=== PATIENT | female | born 1940 | race African-American/Black ===

== ENCOUNTER 2016-06-13 05:34 | Inpatient (IN) ==
[2016-06-12 11:52] LABS: Basophils % 0.2 % (0.0-0.8); Eosinophils # 0.2 10*3/uL (0.0-0.87); Eosinophils % 1.8 % (0.00-10.9); Hematocrit 35.1 VOL% (35.7-47.0); Hemoglobin 11.5 GM/DL (12.0-16.0); Immature Granulocytes % 0.4 %; Immature Granulocytes Absolute 0.04 #; Lymphocytes # 1.7 10*3/uL (1.4-4.0); Lymphocytes % 15.7 % (21.3-54.2); Mean Corpuscular HGB Conc 32.8 GM/DL (32-36); Mean Corpuscular Hemoglobin 27 PG (27-34); Mean Corpuscular Volume 82.8 FL (87-102); Mean Platelet Volume 9.5 FL (9.6-12.0); Monocytes # 0.8 10*3/uL (0.11-0.8); Monocytes % 7.8 % (1.7-12.7); Neutrophils # 7.9 10*3/uL (1.4-7.4); Neutrophils % 74.1 % (38.7-73.9); Platelet Count 397 T/CUMM (130-400); Red Blood Count 4.24 MC/CUMM (3.8-5.5); Red Cell Distribution Width 17.9 % (9.3-17.3); White Blood Count 10.7 T/CUMM (4-12)
--- NOTE | 2016-06-12 12:26 | EKG Report ---
Stationary ECG Study [facility] Test Date: 06/12/2016 12:24:39 PM Pat Name: ARMIDA HASSAN Department: Room: Gender: F Ride Attendant: 06-13-16 : 1940 Requested by: Greyson Thomas Order Number: [id number] Love MD: JOSE R PARTIDA Intervals [place] Rate: 79 P: 63 WV: 136 QRS: -16 QRSD: 115 T: 36 QT: 397 QTc: 431 Interpretive Statements SINUS RHYTHM INCOMPLETE RIGHT BUNDLE BRANCH BLOCK Electronically Signed On 06-12-16 13:36:26 CDT by JOSE R PARTIDA [email or web address]
[2016-06-12 12:27] LABS: Bilirubin,Total 0.7 MG/DL (0.2-1.0); Calcium 9.3 MG/DL (8.5-10.1); Osmolality,Calculated 280.5 MOS/KG (273-304); Potassium 4.5 MMOL/L (3.5-5.1); Total Protein 8.2 G/DL (6.4-8.3)
--- NOTE | 2016-06-12 15:48 | XRay Report ---
History: Respiratory preop evaluation. Breast cancer Date: 06/12/2016 Study: Chest x-ray PA and lateral Comparison exam: September 29, 2007 chest x-ray There is stable mild cardiomegaly. The mediastinal contours are unchanged. The pulmonary vasculature is not enlarged. There is minimal aortic arch calcification. There is no gross layering pleural effusion. There is suspected mild pleural scarring in the left lateral costophrenic angle. There is a small calcified granuloma in the right lower lung. The lungs and pleural spaces are otherwise clear. There is mild thoracic spondylosis. Surgical clips overlie the left thoracic inlet. Impression: No acute cardiopulmonary process compared to the previous study PROCEDURE INTERPRETED AT [facility] DEPARTMENT OF RADIOLOGY Final Report Signed by: Dr. Britt Dominguez
[2016-06-13] MEDS ORDERED: FAMOTIDINE 20 MG TABLET ONE (05:56)
[2016-06-13] MEDS ORDERED: SODIUM CHLORIDE 0.9% 100 ML IV ONE (05:56)
[2016-06-13] MEDS ORDERED: ceFAZolin 1,000 MG VIAL ONE (05:56)
[2016-06-13] MEDS ORDERED: FAMOTIDINE 20 MG TABLET PO ONE (06:00)
[2016-06-13] MEDS ORDERED: ALBUTEROL/IPRATROPIUM 3 ML NEB RESP TX STA (06:08)
[2016-06-13] MEDS ORDERED: ISOSULFAN BLUE 5 ML VIAL SUBCUT ONE (06:11)
[2016-06-13] MEDS: LACTATED RINGERS 1,000 ML IV SCH ×2 (06:55→10:33)
[2016-06-13] MEDS ORDERED: LIDOCAINE 2% 5 ML VIAL ONE (07:07)
[2016-06-13] MEDS ORDERED: DEXAMETHASONE 4 MG/1 ML VIAL ONE (07:07)
[2016-06-13] MEDS ORDERED: LABETALOL 100 MG/20 ML VIAL IV ONE (07:07)
[2016-06-13] MEDS ORDERED: SUCCINYLCHOLINE 200 MG/10 ML VIAL ONE (07:07)
[2016-06-13] MEDS ORDERED: ROCURONIUM 100 MG/10 ML VIAL IV ONE (07:07)
[2016-06-13] MEDS ORDERED: PROPOFOL 200 MG/20 ML VIAL IV ONE (07:07)
[2016-06-13] MEDS ORDERED: ONDANSETRON 4 MG/2 ML VIAL ONE (07:07)
--- NOTE | 2016-06-13 09:08 | Operative Note ---
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 [place] lymph node excision removing lower axillary sentinel lymph node with radial guidance 3. Injection of blue dye for sentinel lymph node localization Findings and technique: After informed consent was obtained the patient was brought to the operating room and placed in supine position. After successful induction of general anesthesia the patient's left breast axilla and upper extremity were prepped and draped in usual sterile fashion. Prior to prepping I injected blue dye of her previous injection site from yesterday and the sterile gamma probe was then placed over the axilla where an area of activity was noted in the mid axilla. The planned mastectomy incisions were marked out with a marking pen and I made the most lateral aspect of the incision over the axilla incorporating this within the planned mastectomy margins. Sharp dissection was carried down into the axillary space where a blue stained lymph node with 2 adherent lymph nodes were noted . Lymphatics were divided between hemoclips and the specimen removed. The central lymph node in this specimen had intense gamma activity and blue staining. Frozen section on this was benign. Surrounding this and just inferior to this were some rather firm enlarged lymph nodes and I elected to resect these with the mastectomy specimen. The mastectomy was performed by creating a generous skin ellipse including the nipple areolar complex and the previous biopsy sites. Superiorly the flaps are raised to the level of the clavicle and medially to the sternum and inferiorly below the inframammary fold. The lateral dissection was carried to the anterior border of the latissimus dorsi muscle and the breast reflected off of the pectoralis major muscle and into the axillary space with the lower lymph nodes were included with the specimen. The specimen was removed and sent for permanent section. Good hemostasis was noted within the bed of dissection and the wound was irrigated and inspected and good hemostasis noted. 2 ELLA drains were placed with the lateral drain in the axillary space in the medial drain beneath the superior flap. The subcutaneous layer was closed interrupted 3-0 Vicryl suture and the skin with skin clips. Bulky dressing was applied. Anesthesia: GETA Surgeon / Physician: Greyson Thomas III. Estimated blood loss: other (50 mL) Specimens: other (Left breast and axillary contents and sentinel lymph node) Condition: stable Disposition: PACU Results - Labs CBC & BMP: 06/12/16 11:46 06/12/16 11:46 Discharge Plan - Discharge Medications No Action Triamcinolone Acetonide [Triamcinolone 0.1% Cream] 1 applic TOP BID Tacrolimus [Protopic 0.1% Oint] 1 actuation TP DIRECTED Omeprazole [Prilosec] 20 mg PO DAILY Insulin NPH/Regular 70/30 [HumuLIN 70/30] 40 unit SUBCUT RT DAILY Multivitamin [Multivitamins] 1 each PO DAILY Gabapentin Cap/Tab [Neurontin Cap/Tab] 300 mg PO DAILY metOLazone [Metolazone] 2.5 mg PO DAILY Hydroxyurea [Hydrea] 500 mg PO DAILY Furosemide Tab [Lasix Tab] 40 mg PO DAILY Methocarbamol Tab [Robaxin Tab] 750 mg PO BID Vits #90/Iron Fum/FA [ Formula Tablet] 1 each PO DAILY HYDROcodone/ACETAMIN 7.5-325 [[place] 7.5-325] 1 tablet PO Q4H PRN PRN Reason: Pain dilTIAZem HCl [Diltiazem ER (24 hr)] 360 mg PO DAILY Aspirin 81 mg PO DAILY - Follow Up or Referral - Forms/Instructions
[2016-06-13] MEDS ORDERED: GLUCAGON 1 MG VIAL IM PRN ×2 (09:09→13:47)
[2016-06-13] MEDS ORDERED: ONDANSETRON 4 MG/2 ML VIAL IV PRN (09:09)
[2016-06-13] MEDS ORDERED: DEXTROSE 50% 25 GM/50 ML VIAL IV PRN ×2 (09:09→13:47)
[2016-06-13] MEDS ORDERED: ALBUTEROL/IPRATROPIUM 3 ML NEB RESP TX PRN (09:09)
[2016-06-13] MEDS ORDERED: SEVOFLURANE 1 UNIT/15 MINUTE INH ONE (09:13)
[2016-06-13] MEDS ORDERED: MIDAZOLAM 2 MG/2 ML VIAL ONE ×2 (09:13→11:37)
[2016-06-13] MEDS ORDERED: fentaNYL 100 MCG/2 ML VIAL ONE (09:13)
[2016-06-13] MEDS ORDERED: ALBUTEROL 2.5 MG/3 ML NEB RESP TX ONE (09:25)
[2016-06-13] MEDS ORDERED: RACEPINEPHRINE 0.5 ML NEB RESP TX ONE ×2 (09:50)
[2016-06-13] MEDS ORDERED: KETOROLAC 15 MG/1 ML VIAL ONE (10:14)
[2016-06-13] MEDS ORDERED: ACETAMINOPHEN INJ 1,000 MG in PREMIX 1 EACH IV ONE (10:14)
[2016-06-13] MEDS ORDERED: ACETAMINOPHEN 1,000 MG/100 ML VIAL IV ONE (10:14)
[2016-06-13] MEDS ORDERED: KETOROLAC 30 MG/1 ML VIAL IV ONE (10:14)
[2016-06-13] MEDS ORDERED: KETOROLAC 30 MG/1 ML VIAL ONE (10:15)
[2016-06-13] MEDS ORDERED: PROPOFOL 1,000 MG/100 ML BOTTLE IV ONE (10:40)
[2016-06-13] MEDS: PROPOFOL 1,000 MG/100 ML BOTTLE IV SCH ×2 (10:50→19:01)
--- NOTE | 2016-06-13 10:50 | Anesthesia Procedures ---
Anesthesia Procedures - Intubation Time out performed intubation: Yes Sedative: Etomidate Mg given sedative: 20 Paralytic: Rocuronium Mg given paralytic: 50 Laryngoscope: Lisa (4) ET Tube Size: 8 (low pressure cuff) ET Tube Uncuffed: No Tube Secured Depth (cm): 22 Tube Secured Location: lips Tube Placement Confirmation: visualized tube passing through cords, equal breath sounds bilaterally, no breath sounds over epigastrium, confirmation by capnometry, confirmation detector color change Patient tolerated procedure intubation: well Intubation Complications: none Additional Commets: patient was given toradol 30 mg IV and Ofirmev 1 gm IV to attempt to treat pain without narcotic. Patient awake but breathing becoming increasingly labored. Additional albuterol breathing treatment and bipap. Discussed with Dr. Martha RATLIFF and Dr. Arredondo and patient. Patient states unable to breathe well. Respirations increasingly labored. O2 sat 83-85 %. Decision to intubate. Patient tolerated intubation well. BP 121/82, heart rate 53 bpm, O2 sat 95%.
--- NOTE | 2016-06-13 11:17 | XRay Report ---
Portable chest. Indication: Respiratory failure. Status post intubation. Comparison: June 12, 2016. The heart is enlarged. There is left atrial prominence. There is calcific plaque present within the aortic knob. Scattered atelectasis is visible in the left lung base. Scattered perihilar infiltrates, worse on the right, have developed since the previous study. Pleural effusion cannot be excluded. Postsurgical changes are noted along the left lower thorax and abdomen. Surgical clips in the left thoracic inlet. Impression: Development of bilateral infiltrates, possibly related to pulmonary edema. Left basilar atelectasis. PROCEDURE INTERPRETED AT [facility] [place] DEPARTMENT OF RADIOLOGY Final Report Signed by: Dr. Nneka Laura
[2016-06-13] MEDS ORDERED: INSULIN REGULAR 100 UNIT/ML SUBCUT SCH (11:30)
[2016-06-13 11:49] LABS: ABG Base Excess 3.2 MMOL/L (-2.5-2.5); ABG HCO3 27.2 MMOL/L (20-26); ABG Oxygen Saturation 96.5 % (95-100); ABG PCO2 40.5 MM HG (35-48); ABG TCO2 24.4 MMOL/L (23-27); Allen Test Positive; Pt O2 Delivery Device Ventilator
[2016-06-13 11:55] LABS: Apearance,Urine CLEAR (Clear); Bilirubin,Urine Negative (Negative); Blood, Urine Negative (Negative); Glucose,Urine (UA) Negative (Negative); Hyaline Casts,Urine 3 /LPF (0-3); Ketones,Urine Negative (Negative); Nitrite,Urine Negative (Negative); Protein,Urine Negative; RBC,Urine <1 /HPF (0-4); Urine Color Yellow (Yellow); Urine Urobilinogen < 2.0 EU/DL (0.2-1.0); WBC,Urine <1 /HPF (0-6)
--- NOTE | 2016-06-13 13:36 | Pulmonology Consult Note ---
Assessment and Plan (1) Postoperative respiratory failure Status: Acute Assessment and plan: She has diffuse right infiltrate. Mild best judgment would be that this would be aspiration. Will obtain venous Dopplers and put on DVT prophylaxis. However this would be too early to be a pulmonary embolus. She has a creatinine of about 1.8 and I would be concerned about doing a CT PE protocol Current Visit: Yes (2) Status post left mastectomy for breast c Status: Acute Assessment and plan: She did well with surgery. Had problems postoperatively. Current Visit: Yes (3) Diabetes type 2, controlled Status: Acute Assessment and plan: Sliding scale insulin. Current Visit: Yes (4) Essential hypertension Status: Acute Assessment and plan: Systolic blood pressure running 180 and 190. Will manage with labetalol. Current Visit: Yes (5) Essential thrombocythemia Status: Acute Assessment and plan: Platelet count was 397,000 yesterday which is normal. Holding Hydrea for now. Current Visit: Yes (6) Aspiration syndrome Status: Acute Assessment and plan: She has an acute right pulmonary infiltrate with hypoxemia following surgery. Aspiration would be the most likely cause. Will cover with steroids as well as Cleocin and Levaquin. Considering pulmonary emboli but I think that is unlikely. Will check venous Dopplers and put on DVT prophylaxis. Current Visit: Yes History of Present Illness Chief complaint: Postop respiratory failure History of present illness: Ms. Barens is a 75 year old female who had a left mastectomy this morning. Postoperatively she was short of breath and hypoxemic and had to be reintubated. She is a patient that I follow for hypertension and diabetes. She has essential thrombocythemia and takes Hydrea regularly followed by Dr. Fab Judge. She has never been a smoker and does not have COPD. She does have obesity and is relatively inactive. She has had multiple leg operations for fractures and would be subject to DVT. Home Medications Medication Instructions Recorded Confirmed Type Aspirin 81 mg PO DAILY 06/12/16 06/13/16 History Furosemide Tab [Lasix Tab] 40 mg PO DAILY 06/12/16 06/13/16 History Gabapentin Cap/Tab [Neurontin 300 mg PO DAILY 06/12/16 06/13/16 History Cap/Tab] HYDROcodone/ACETAMIN 7.5-325 1 tablet PO Q4H PRN 06/12/16 06/13/16 History [[place] 7.5-325] Hydroxyurea [Hydrea] 500 mg PO DAILY 06/12/16 06/13/16 History Insulin NPH/Regular 70/30 [HumuLIN 40 unit SUBCUT RT DAILY 06/12/16 06/13/16 History 70/30] Methocarbamol Tab [Robaxin Tab] 750 mg PO BID 06/12/16 06/13/16 History Multivitamin [Multivitamins] 1 each PO DAILY 06/12/16 06/13/16 History Omeprazole [Prilosec] 20 mg PO DAILY 06/12/16 06/13/16 History Vits #90/Iron Fum/FA 1 each PO DAILY 06/12/16 06/13/16 History [ Formula Tablet] Tacrolimus [Protopic 0.1% Oint] 1 actuation TP DIRECTED 06/12/16 06/13/16 History Triamcinolone Acetonide 1 applic TOP BID 06/12/16 06/13/16 History [Triamcinolone 0.1% Cream] dilTIAZem HCl [Diltiazem ER (24 360 mg PO DAILY 06/12/16 06/13/16 History hr)] metOLazone [Metolazone] 2.5 mg PO DAILY 06/12/16 06/13/16 History Allergies Allergy/AdvReac Type Severity Reaction Status Date / Time adhesive tape Allergy Severe PEELS SKIN Verified 06/13/16 06:11 OFF ROS unobtainable: due to endotracheal tube Exam (Pulmonay) H&P - Constitutional Vitals: Period Temp Pulse Resp BP Sys/Murdock Pulse Ox Last 24 Hr 97.3 F-97.9 F 46-84 14-30 127-191/60-88 87-97 Exam: Patient is sedated but arousable vital signs normal. O2 sat 98% on the ventilator. Pupils react to light. Orotracheal tube in place. Neck is supple no bruits. Chest reveals a few rhonchi on the right chest. Left lung is clear. Heart normal rate rhythm no murmurs. Abdomen soft nontender no masses. Bowel sounds present. Extremities no clubbing cyanosis or edema. Calves nontender. She has a bandage over her left breast. It is surgically absent. Medical,Surgical,& Family Hx - Medical History Cardio: History of: Hypertension, Cardiovascular Problems (DR RAHMAN STRESS TEST 2016.) Neurology: No history of: Seizures HEENT: History of: Eye Problem (GLASSES) Endocrine: History of: Diabetes Mellitus (IDDM), Thyroid Disorder Rheumatology: History of;: Rheumatoid Arthritis Respiratory: History of: Bronchitis (CHRONIC) No history of: COPD (She does not have COPD), Respiratory Problems (FLU VAC-) Gastrointestinal: History of: GERD Musculoskeletal: History of: Back/Neck Problems (BACK INJECTION, DR SAENZ 3 YEARS AGO.), Musculoskeletal Problems (RT LEG FX) Hematology: History of: Anemia, Blood Disorders (ESSENTIAL THROMBOCYTHERMIA) Reproductive: History of: Breast Cancer (LEFT BREAST CA DR JUDGE) - Surgical History HEENT Surgeries: Surgical HX of: Thyroid Surgery (PARTIAL THYROIDECTOMY) Abdominal Surgeries: Surgical HX of: Appendectomy, Hernia Repair Reproductive Surgeries: Surgical HX of;: Breast Surgery (RT LUMPECTOMY), Cystoscopy (DR FORBES), Dilation and Curettage (X1) Orthopedic Surgeries: Surgical HX of;: Total Knee Replacement (SHU KNEE) - Family History Family History: Reports;: Family Diabetes (2 SISTERS), Family Heart Disease ( MOTHER CHF, FATHER), Family Hypertension (MOTHER FATHER SISTERS) - Social History Smoking Status: Never smoker Frequency of Alcohol Use: None Type of Drug Use: None Results - Labs CBC & BMP: 06/12/16 11:46 06/12/16 11:46 Lab Results: I have reviewed the past 24 hour labs - Diagnostic Findings Procedure: Chest x-ray: image reviewed by me (Postoperative chest x-ray shows a diffuse infiltrate in the right lung. Left lung is clear. Preoperative x-ray yesterday was clear.) Quality Measures - VTE Contraindication to Pharmacological VTE Prophylaxis: High Risk of Bleeding
--- NOTE | 2016-06-13 14:55 | Ultrasound Report ---
Bilateral lower extremity venous Doppler with cano scale, Spectral Doppler and color-flow analysis performed and interpreted. Indication: pulmonary infiltrate. History of deep venous thrombosis. Scanning over both common femoral veins, superficial femoral veins, greater saphenous veins and popliteal veins demonstrates normal compressibility, color flow, and augmentation. Impression: No evidence of DVT seen in either lower extremity. PROCEDURE INTERPRETED AT [facility] DEPARTMENT OF RADIOLOGY Final Report Signed by: Dr. Nneka Laura
[2016-06-13] MEDS: SODIUM CHLORIDE 0.9% 1,000 ML IV SCH (15:20)
[2016-06-13] MEDS: methylPREDNISolone SOD SUC 40 MG/1 ML VIAL IV SCH (15:25)
[2016-06-13] MEDS: CLINDAMYCIN INJ 600 MG in PREMIX 1 EACH IV SCH (15:26)
[2016-06-13] MEDS: ENOXAPARIN 60 MG/0.6 ML SYRINGE SUBCUT SCH (15:26)
[2016-06-13] MEDS: LEVOFLOXACIN INJ 500 MG in PREMIX 1 EACH IV SCH (16:03)
[2016-06-13] MEDS: ceFAZolin 2,000 MG in PREMIX 1 EACH IV SCH (16:20)
--- NOTE | 2016-06-13 16:37 | Hospitalist History & Physical ---
History of Present Illness Chief complaint: diabetes History of present illness: Ms. Barnes is a 75 year old female Home Medications Medication Instructions Recorded Confirmed Type Aspirin 81 mg PO DAILY 06/12/16 06/13/16 History Furosemide Tab [Lasix Tab] 40 mg PO DAILY 06/12/16 06/13/16 History Gabapentin Cap/Tab [Neurontin 300 mg PO DAILY 06/12/16 06/13/16 History Cap/Tab] HYDROcodone/ACETAMIN 7.5-325 1 tablet PO Q4H PRN 06/12/16 06/13/16 History [[place] 7.5-325] Hydroxyurea [Hydrea] 500 mg PO DAILY 06/12/16 06/13/16 History Insulin NPH/Regular 70/30 [HumuLIN 40 unit SUBCUT RT DAILY 06/12/16 06/13/16 History 70/30] Methocarbamol Tab [Robaxin Tab] 750 mg PO BID 06/12/16 06/13/16 History Multivitamin [Multivitamins] 1 each PO DAILY 06/12/16 06/13/16 History Omeprazole [Prilosec] 20 mg PO DAILY 06/12/16 06/13/16 History Vits #90/Iron Fum/FA 1 each PO DAILY 06/12/16 06/13/16 History [ Formula Tablet] Tacrolimus [Protopic 0.1% Oint] 1 actuation TP DIRECTED 06/12/16 06/13/16 History Triamcinolone Acetonide 1 applic TOP BID 06/12/16 06/13/16 History [Triamcinolone 0.1% Cream] dilTIAZem HCl [Diltiazem ER (24 360 mg PO DAILY 06/12/16 06/13/16 History hr)] metOLazone [Metolazone] 2.5 mg PO DAILY 06/12/16 06/13/16 History Allergies Allergy/AdvReac Type Severity Reaction Status Date / Time adhesive tape Allergy Severe PEELS SKIN Verified 06/13/16 06:11 OFF Medical,Surgical,& Family Hx - Medical History Cardio: History of: Hypertension, Cardiovascular Problems (DR RAHMAN STRESS TEST 2016.) Neurology: No history of: Seizures HEENT: History of: Eye Problem (GLASSES) Endocrine: History of: Diabetes Mellitus (IDDM), Thyroid Disorder Rheumatology: History of;: Rheumatoid Arthritis Respiratory: History of: Bronchitis (CHRONIC) No history of: COPD (She does not have COPD), Respiratory Problems (FLU VAC-) Gastrointestinal: History of: GERD Musculoskeletal: History of: Back/Neck Problems (BACK INJECTION, DR SAENZ 3 YEARS AGO.), Musculoskeletal Problems (RT LEG FX) Hematology: History of: Anemia, Blood Disorders (ESSENTIAL THROMBOCYTHERMIA) Reproductive: History of: Breast Cancer (LEFT BREAST CA DR JUDGE) - Surgical History HEENT Surgeries: Surgical HX of: Thyroid Surgery (PARTIAL THYROIDECTOMY) Abdominal Surgeries: Surgical HX of: Appendectomy, Hernia Repair Reproductive Surgeries: Surgical HX of;: Breast Surgery (RT LUMPECTOMY), Cystoscopy (DR FORBES), Dilation and Curettage (X1) Orthopedic Surgeries: Surgical HX of;: Total Knee Replacement (SHU KNEE) - Family History Family History: Reports;: Family Diabetes (2 SISTERS), Family Heart Disease ( MOTHER CHF, FATHER), Family Hypertension (MOTHER FATHER SISTERS) - Social History Smoking Status: Never smoker Frequency of Alcohol Use: None Type of Drug Use: None Exam - Constitutional Vitals: Period Temp Pulse Resp BP Sys/Murdock Pulse Ox Last 24 Hr 97.0 F-97.9 F 46-84 14-30 88-191/43-88 87-100 Results - Labs CBC & BMP: 06/12/16 11:46 06/12/16 11:46 Quality Measures - VTE Contraindication to Pharmacological VTE Prophylaxis: High Risk of Bleeding
--- NOTE | 2016-06-13 17:08 | Hospitalist Consult Note ---
Assessment and Plan (1) Renal insufficiency, mild Status: Acute Assessment and plan: 1)MELANIE v CKD- no old creatinines in our system. monitor her renal function 2)DM- agree with SSI for now since she is not eating and consider restarting her long acting insulin when she is fed. If not extubated tomorrow, consider tube feeding. 3) morbid obesity Current Visit: Yes (2) Diabetes type 2, controlled Status: Acute Current Visit: Yes History of Present Illness - Consult Narrative Reason for consult: diabetes History of present illness: Ms. Barnes is a 75 year old female who had a mastectomy today. In the recovery room she had respiratory distress and was intubated and transferred to the CCU. I was consulted for diabetes management. She is unable to give history and there are no family members present to give any. When I look at her records which include a consult from Dr Arredondo and her home med list It appears she has insulin dependent diabetes. She wakes when I touch her and seems to be following what I say. Her nurse says that she expects her to be extubated tomorrow. CC: Greyson Thomas III., - Home Medications and Allergies Home Medications: Home Medications Medication Instructions Recorded Confirmed Type Aspirin 81 mg PO DAILY 06/12/16 06/13/16 History Furosemide Tab [Lasix Tab] 40 mg PO DAILY 06/12/16 06/13/16 History Gabapentin Cap/Tab [Neurontin 300 mg PO DAILY 06/12/16 06/13/16 History Cap/Tab] HYDROcodone/ACETAMIN 7.5-325 1 tablet PO Q4H PRN 06/12/16 06/13/16 History [[place] 7.5-325] Hydroxyurea [Hydrea] 500 mg PO DAILY 06/12/16 06/13/16 History Insulin NPH/Regular 70/30 [HumuLIN 40 unit SUBCUT RT DAILY 06/12/16 06/13/16 History 70/30] Methocarbamol Tab [Robaxin Tab] 750 mg PO BID 06/12/16 06/13/16 History Multivitamin [Multivitamins] 1 each PO DAILY 06/12/16 06/13/16 History Omeprazole [Prilosec] 20 mg PO DAILY 06/12/16 06/13/16 History Vits #90/Iron Fum/FA 1 each PO DAILY 06/12/16 06/13/16 History [ Formula Tablet] Tacrolimus [Protopic 0.1% Oint] 1 actuation TP DIRECTED 06/12/16 06/13/16 History Triamcinolone Acetonide 1 applic TOP BID 06/12/16 06/13/16 History [Triamcinolone 0.1% Cream] dilTIAZem HCl [Diltiazem ER (24 360 mg PO DAILY 06/12/16 06/13/16 History hr)] metOLazone [Metolazone] 2.5 mg PO DAILY 06/12/16 06/13/16 History Allergies/Adverse Reactions: Allergies Allergy/AdvReac Type Severity Reaction Status Date / Time adhesive tape Allergy Severe PEELS SKIN Verified 06/13/16 06:11 OFF Medical,Surgical,& Family Hx - Medical History Cardio: History of: Hypertension, Cardiovascular Problems (DR RAHMAN STRESS TEST 2016.) Neurology: No history of: Seizures HEENT: History of: Eye Problem (GLASSES) Endocrine: History of: Diabetes Mellitus (IDDM), Thyroid Disorder Rheumatology: History of;: Rheumatoid Arthritis Respiratory: History of: Bronchitis (CHRONIC) No history of: COPD (She does not have COPD), Respiratory Problems (FLU VAC-) Gastrointestinal: History of: GERD Musculoskeletal: History of: Back/Neck Problems (BACK INJECTION, DR SAENZ 3 YEARS AGO.), Musculoskeletal Problems (RT LEG FX) Hematology: History of: Anemia, Blood Disorders (ESSENTIAL THROMBOCYTHERMIA) Reproductive: History of: Breast Cancer (LEFT BREAST CA DR JUDGE) - Surgical History HEENT Surgeries: Surgical HX of: Thyroid Surgery (PARTIAL THYROIDECTOMY) Abdominal Surgeries: Surgical HX of: Appendectomy, Hernia Repair Reproductive Surgeries: Surgical HX of;: Breast Surgery (RT LUMPECTOMY), Cystoscopy (DR FORBES), Dilation and Curettage (X1) Orthopedic Surgeries: Surgical HX of;: Total Knee Replacement (SHU KNEE) - Family History Family History: Reports;: Family Diabetes (2 SISTERS), Family Heart Disease ( MOTHER CHF, FATHER), Family Hypertension (MOTHER FATHER SISTERS) - Social History Smoking Status: Never smoker Frequency of Alcohol Use: None Type of Drug Use: None ROS unobtainable: due to endotracheal tube Exam - Constitutional Vitals: Period Temp Pulse Resp BP Sys/Murdock Pulse Ox Last 24 Hr 97.0 F-97.9 F 46-84 14-30 88-191/43-88 87-100 General appearance: mild distress (comfortable and rsting on vent but coughs when she wakes to my voice. ), morbidly obese - Head Head exam: Present: normocephalic, atraumatic - Eye Eye exam: Present: EOMI. Absent: scleral icterus - Respiratory Respiratory exam: Present: clear to auscultation bilaterally (though she has distant breath sounds due to her body habitus.) - Cardiovascular Cardiovascular exam: Present: regular rate and rhythm - GI/Abdominal GI/Abdominal exam: Present: normal bowel sounds, soft. Absent: tenderness - Extremities Exam Extremities exam: Present: edema (some edema that seems chronic in her lower extremities at ankles.) Results - Labs CBC & BMP: 06/12/16 11:46 06/12/16 11:46 Lab Results: I have reviewed the past 24 hour labs Quality Measures - VTE Contraindication to Pharmacological VTE Prophylaxis: High Risk of Bleeding
[2016-06-13] MEDS: INSULIN REGULAR 100 UNIT/ML SUBCUT SCH (17:43)
[2016-06-13] MEDS: MORPHINE 2 MG/1 ML SYRINGE IV PRN (19:35)
[2016-06-14] MEDS: PROPOFOL 1,000 MG/100 ML BOTTLE IV SCH ×2 (00:01→03:24)
[2016-06-14] MEDS: CLINDAMYCIN INJ 600 MG in PREMIX 1 EACH IV SCH ×4 (00:44→23:24)
[2016-06-14] MEDS: ceFAZolin 2,000 MG in PREMIX 1 EACH IV SCH (00:45)
[2016-06-14] MEDS: INSULIN REGULAR 100 UNIT/ML SUBCUT SCH ×4 (02:54→17:58)
[2016-06-14] MEDS: MORPHINE 2 MG/1 ML SYRINGE IV PRN (03:21)
[2016-06-14] MEDS: ENOXAPARIN 60 MG/0.6 ML SYRINGE SUBCUT SCH ×2 (03:22→14:03)
[2016-06-14] MEDS: methylPREDNISolone SOD SUC 40 MG/1 ML VIAL IV SCH ×2 (03:23→14:03)
[2016-06-14] MEDS: SODIUM CHLORIDE 0.9% 1,000 ML IV SCH ×2 (03:25→18:30)
[2016-06-14 03:26] LABS: ABG Base Excess 3.7 MMOL/L (-2.5-2.5); ABG HCO3 27.9 MMOL/L (20-26); ABG Oxygen Saturation 96.5 % (95-100); ABG PCO2 40.4 MM HG (35-48); ABG PH 7.457 (7.35-7.45); ABG TCO2 29.1 MMOL/L (23-27); Allen Test Positive; Pt O2 Delivery Device Ventilator
[2016-06-14] MEDS ORDERED: INSULIN NPH/REGULAR 70/30 100 UNIT/ML SUBCUT SCH (07:00)
--- NOTE | 2016-06-14 07:02 | Anesthesia Post-Op ---
Anesthesia Post OP - Post Ansesthetic Evaluation Patient seen in post op: Yes Resp: within normal limits (patient on ventilator after resp treatments and bipap) CV: within normal limits Mental: within normal limits Temp: within normal limits [id number]: within normal limits Nausea and Vomiting: within normal limits Pain: within normal limits
[2016-06-14 07:10] LABS: Basophils % 0.1 % (0.0-0.8); Hematocrit 28.5 VOL% (35.7-47.0); Hemoglobin 9.6 GM/DL (12.0-16.0); Immature Granulocytes % 0.4 %; Immature Granulocytes Absolute 0.04 #; Lymphocytes # 0.8 10*3/uL (1.4-4.0); Lymphocytes % 8.6 % (21.3-54.2); Mean Corpuscular HGB Conc 33.7 GM/DL (32-36); Mean Corpuscular Hemoglobin 27 PG (27-34); Mean Corpuscular Volume 81.2 FL (87-102); Mean Platelet Volume 10.4 FL (9.6-12.0); Monocytes # 0.3 10*3/uL (0.11-0.8); Neutrophils # 8.5 10*3/uL (1.4-7.4); Neutrophils % 87.9 % (38.7-73.9); Platelet Count 344 T/CUMM (130-400); Red Blood Count 3.51 MC/CUMM (3.8-5.5); Red Cell Distribution Width 17.5 % (9.3-17.3); White Blood Count 9.7 T/CUMM (4-12)
--- NOTE | 2016-06-14 07:17 | Pulmonology Progress Note ---
Pulmonary - PN: Subj Interval history: This is a 75-year-old lady that had left mastectomy yesterday and had some respiratory difficulty postoperatively. She had to be reintubated. Chest x- ray has shown a right sided infiltrate primarily. My suspicion is that she had some aspiration. She does not have significant underlying chronic lung problems. She has never been a smoker. Her PO2 is 90 on 50% oxygen this morning. That is adequate for a weaning trial. We will hold her propofol and see if we can get her extubated today. We need to keep her on the dry side in order to keep her lungs from getting wet. I have decreased the saline and ordered Lasix. Unfortunately chemistries are not back yet this morning. Exam (Progress Note) - Constitutional Vitals: Period Temp Pulse Resp BP Sys/Murdock Pulse Ox Last 24 Hr 96.8 F-97.9 F 46-81 14-30 88-191/43-88 87-100 Exam: Patient is sedated. Vital signs normal. Pupils react to light. Orotracheal tube in place. Neck is supple no bruits. Chest reveals a few rhonchi at the right base. Heart normal rate and rhythm no murmurs. Abdomen soft nontender no masses. Extremities no clubbing cyanosis or edema. She has a bandage across her left chest where she had a mastectomy yesterday. Results - Labs CBC & BMP: 06/14/16 06:34 06/12/16 11:46 Lab Results: I have reviewed the past 24 hour labs - Diagnostic Findings Procedure: Chest x-ray: image reviewed by me (Right sided infiltrate a little less prominent today. ET tube good position.) Assessment and Plan (1) Postoperative respiratory failure Status: Acute Assessment and plan: She has diffuse right infiltrate. Mild best judgment would be that this would be aspiration. Will obtain venous Dopplers and put on DVT prophylaxis. However this would be too early to be a pulmonary embolus. She has a creatinine of about 1.8 and I would be concerned about doing a CT PE protocol 06/14/2016 ABGs look adequate for weaning. Check mechanics this morning. May take another day or 2. Again I suspect this is due to aspiration. Current Visit: Yes (2) Status post left mastectomy for breast c Status: Acute Assessment and plan: She did well with surgery. Had problems postoperatively. 06/14/2016 no problems at mastectomy site. Current Visit: Yes (3) Diabetes type 2, controlled Status: Acute Assessment and plan: Sliding scale insulin. 06/14/2016 glucoses look okay. Current Visit: Yes (4) Essential hypertension Status: Acute Assessment and plan: Systolic blood pressure running 180 and 190. Will manage with labetalol. 06/14/2016 blood pressure is well controlled. Current Visit: Yes (5) Essential thrombocythemia Status: Acute Assessment and plan: Platelet count was 397,000 yesterday which is normal. Holding Hydrea for now. 06/14/2016 check CBC tomorrow. Current Visit: Yes (6) Aspiration syndrome Status: Acute Assessment and plan: She has an acute right pulmonary infiltrate with hypoxemia following surgery. Aspiration would be the most likely cause. Will cover with steroids as well as Cleocin and Levaquin. Considering pulmonary emboli but I think that is unlikely. Will check venous Dopplers and put on DVT prophylaxis. 06/14/2016 patient is on empiric steroids and antibiotics. Venous Dopplers were negative. Do not think she had pulmonary emboli. Current Visit: Yes
[2016-06-14 07:39] LABS: Calcium 8.2 MG/DL (8.5-10.1); Potassium 4.4 MMOL/L (3.5-5.1)
--- NOTE | 2016-06-14 08:19 | Event Note ---
I did see the patient yesterday afternoon after she was reactive bladed and placed in ICU. I did not place and noted in the chart at that time. She has been stable overnight and is awake and alert on the ventilator without complaints. She denies any pain. Her surgical site looks okay. Hopefully she will come off the ventilator today. I appreciate the help from pulmonary medicine and the hospitalist service.
[2016-06-14] MEDS ORDERED: DILTIAZEM CD 180 MG CAPSULE PO SCH (09:00)
[2016-06-14] MEDS ORDERED: HYDROXYUREA 500 MG CAPSULE PO SCH (09:00)
--- NOTE | 2016-06-14 09:47 | XRay Report ---
XR chest 1V portable Indication: Pneumonia Comparison: 13 Jun 2016 Findings: The heart and mediastinum are stable in size and configuration. Endotracheal tube and NG tube appear in good position. The pulmonary vascularity is prominent but similar to previous exam. There is slight improvement of the right lower lung density. No other lung infiltrates, effusions, pneumothorax or other abnormality is demonstrated. Impression: Slight improvement in right lower lung density. No other significant changes. PROCEDURE INTERPRETED AT [facility] DEPARTMENT OF RADIOLOGY Final Report Signed by: Dr. Justus Knapp
[2016-06-14] MEDS: FUROSEMIDE 40 MG/4 ML VIAL IV SCH (10:26)
[2016-06-14] MEDS: FUROSEMIDE 40 MG TABLET PO SCH (10:27)
[2016-06-14] MEDS: DILTIAZEM 90 MG TABLET PO SCH ×4 (10:27→21:02)
[2016-06-14] MEDS: GABAPENTIN 300 MG CAPSULE PO SCH (10:27)
[2016-06-14] MEDS: ASPIRIN CHEW 81 MG TABLET PO SCH (10:27)
[2016-06-14] MEDS: metOLazone 2.5 MG TABLET PO SCH (10:28)
[2016-06-14] MEDS: PANTOPRAZOLE 40 MG TABLET PO SCH (10:28)
--- NOTE | 2016-06-14 11:15 | Hospitalist Progress Note ---
Assessment and Plan (1) Renal insufficiency, mild Status: Acute Assessment and plan: 1)MELANIE v CKD- no baseline in our system. creatinine 1.6 this morning down from 1.8 2)DM- agree with SSI for now since she is not eating. If not extubated tomorrow , consider tube feeding. At home she listed 70/30 40 U once a day as her med. 3) morbid obesity Current Visit: Yes (2) Diabetes type 2, controlled Status: Acute Current Visit: Yes Hospitalist: Subjective Interval history: Mrs Barnes is doing well and has started CPAP. She is alert and responding to questions. Exam - Constitutional Vitals: Period Temp Pulse Resp BP Sys/Murdock Pulse Ox Last 24 Hr 96.8 F-97.5 F 53-91 14-24 88-215/43-91 96-100 General appearance: no acute distress, morbidly obese - Eye Eye exam: Present: EOMI. Absent: scleral icterus - Respiratory Respiratory exam: Present: clear to auscultation bilaterally - Cardiovascular Cardiovascular exam: Present: regular rate and rhythm - GI/Abdominal GI/Abdominal exam: Present: normal bowel sounds, soft - Extremities Exam Extremities exam: Absent: edema Results - Labs CBC & BMP: 06/14/16 06:34 06/14/16 06:34 Lab Results: I have reviewed the past 24 hour labs Quality Measures - VTE Contraindication to Pharmacological VTE Prophylaxis: High Risk of Bleeding
[2016-06-14 11:29] LABS: Pt O2 Delivery Device Ventilator
[2016-06-14 11:31] LABS: ABG Base Excess 2.3 MMOL/L (-2.5-2.5); ABG HCO3 26.4 MMOL/L (20-26); ABG Oxygen Saturation 97.8 % (95-100); ABG PCO2 45.5 MM HG (35-48); ABG PH 7.392 (7.35-7.45); ABG TCO2 24.8 MMOL/L (23-27)
[2016-06-14 13:12] LABS: Pt O2 Delivery Device Venturi Mask
[2016-06-14 13:13] LABS: ABG Base Excess 3.7 MMOL/L (-2.5-2.5); ABG HCO3 27.7 MMOL/L (20-26); ABG Oxygen Saturation 96.5 % (95-100); ABG PCO2 47.7 MM HG (35-48); ABG PH 7.397 (7.35-7.45); ABG PO2 91.5 MM HG (80-95); ABG TCO2 26.2 MMOL/L (23-27)
[2016-06-14] MEDS: LEVOFLOXACIN INJ 500 MG in PREMIX 1 EACH IV SCH (15:43)
[2016-06-14 16:31] LABS: Hematocrit 32.4 VOL% (35.7-47.0); Hemoglobin 10.8 GM/DL (12.0-16.0)
[2016-06-15] MEDS: methylPREDNISolone SOD SUC 40 MG/1 ML VIAL IV SCH ×2 (01:03→14:59)
[2016-06-15] MEDS: INSULIN REGULAR 100 UNIT/ML SUBCUT SCH ×5 (01:03→20:42)
[2016-06-15 04:10] LABS: Hematocrit 26.6 VOL% (35.7-47.0)
[2016-06-15 04:37] LABS: ABG Base Excess 4.5 MMOL/L (-2.5-2.5); ABG HCO3 28.4 MMOL/L (20-26); ABG Oxygen Saturation 93.1 % (95-100); ABG PCO2 51.5 MM HG (35-48); ABG PH 7.381 (7.35-7.45); ABG PO2 71.5 MM HG (80-95); ABG TCO2 28.2 MMOL/L (23-27); Allen Test Positive
[2016-06-15 04:39] LABS: Osmolality,Calculated 285.8 MOS/KG (273-304); Potassium 5.2 MMOL/L (3.5-5.1)
[2016-06-15] MEDS: CLINDAMYCIN INJ 600 MG in PREMIX 1 EACH IV SCH ×3 (06:05→22:35)
--- NOTE | 2016-06-15 06:50 | Pulmonology Progress Note ---
Pulmonary - PN: Subj Interval history: Umu Barnes is a 75-year-old black lady that had a left mastectomy a couple days ago. Postop she has some respiratory insufficiency and had to be reintubated. She was extubated yesterday and is done fairly well. She says she is breathing comfortably today. She has had considerable swelling of her left anterior chest wall and may have a hematoma. She may have to go back to surgery. Her breathing is fairly stable at present. She is alert and talking and says she feels better today. Exam (Progress Note) - Constitutional Vitals: Period Temp Pulse Resp BP Sys/Murdock Pulse Ox Last 24 Hr 96.7 F-97.4 F 60-91 14-24 106-215/52-98 96-100 General appearance: normal weight, no acute distress (She is talking and alert) - Head Head exam: Present: normal inspection, normocephalic - Eye Eye exam: Present: EOMI. Absent: scleral icterus Pupils: Present: LIZZETH - ENT ENT exam: Present: normal exam - Neck Neck exam: Present: normal inspection. Absent: lymphadenopathy, thyromegaly - Respiratory Respiratory exam: Present: clear to auscultation bilaterally, other (She does have considerable swelling of her anterior left chest wall. She does have drains in place.). Absent: accessory muscle use, wheezes - Cardiovascular Cardiovascular exam: Present: regular rate and rhythm. Absent: gallop, systolic murmur - GI/Abdominal GI/Abdominal exam: Present: normal bowel sounds, soft. Absent: distended, organomegaly, tenderness - Extremities Exam Extremities exam: Absent: calf tenderness, edema - Neurological Exam Neurological exam: Present: alert, oriented X3, CN II-XII intact - Psychiatric Psychiatric exam: Present: normal affect - Skin Skin exam: Present: warm, dry Results - Labs CBC & BMP: 06/15/16 03:55 06/15/16 03:55 Labs: Her PO2 is 71 with a PCO2 of 51 and pH of 7.38 on 2 L oxygen. - Diagnostic Findings Procedure: Chest x-ray: image reviewed by me, report reviewed by me (Chest x- ray looks reasonably clear) Assessment and Plan (1) Postoperative respiratory failure Status: Acute Assessment and plan: The patient had some trouble early postop but is doing better now. She is comfortable and stable off the ventilator. Current Visit: Yes (2) Status post left mastectomy for breast c Status: Acute Assessment and plan: The patient had the mastectomy and now has considerable swelling under her left chest wall. She may have a hematoma that needs evacuating. Current Visit: Yes (3) Diabetes type 2, controlled Status: Acute Assessment and plan: Her glucose is 238 this morning. She is getting insulin. Current Visit: Yes (4) Essential hypertension Status: Acute Assessment and plan: Her blood pressure has been stable so far. Current Visit: Yes (5) Renal insufficiency, mild Status: Acute Assessment and plan: Her creatinine is 1.7 today. Current Visit: Yes (6) Aspiration syndrome Status: Acute Assessment and plan: She was felt to possibly have had mild aspiration but she is doing better now. She does not have any significant infiltrates. Current Visit: Yes
--- NOTE | 2016-06-15 08:42 | Event Note ---
06/15/2016. Patient is status post mastectomy and has a large hematoma underneath the flaps at this time. Hematocrit is 26 at this time. Vital signs are stable but this needs to be evacuated at this point. Have discussed with Dr. Thomas and he is coming in to do that at this time.
[2016-06-15] MEDS ORDERED: ceFAZolin 2,000 MG in PREMIX 1 EACH IV ONE (08:43)
--- NOTE | 2016-06-15 08:49 | Hospitalist Progress Note ---
Assessment and Plan - Time spent with patient Time spent with patient: Less than 30 minutes (1) Postoperative respiratory failure Status: Acute Assessment and plan: 75AAF POD2 left mastectomy for breast cancer by dr randa RATLIFF. hospital medicine is consulted for medical management of her dm and htn. dr marr will see and examine pt and further recommendations to follow. expanding hematoma--pt has expanding postop hematoma of left breast. her blood counts have dropped and hematoma is significantly larger than it was 12 hours ago. she is npo and dr randa RATLIFF has been notified. she is going back to OR for hematoma evacuation this am. holding 2 units of prbc for OR. her lovenox has also been held. dm--blood sugars are running high 100s to low 200s. she is on sliding scale. will continue to monitor. htn--blood pressures are controlled on current regimen. Current Visit: Yes (2) Status post left mastectomy for breast c Status: Acute Current Visit: Yes (3) Diabetes type 2, controlled Status: Acute Current Visit: Yes (4) Essential hypertension Status: Acute Current Visit: Yes (5) Breast hematoma after procedure Status: Acute Current Visit: Yes Hospitalist: Subjective Interval history: was called to bedside late yesterday afternoon for possible hematoma of the left mastectomy site. the site was marked and HH drawn which was actually higher than HH in am. her lovenox was also held. dr randa RATLIFF was notified and pt was held npo for this am just in case. pts HH is down this am and hematoma is significantly larger. the area is very tender to palpation per pt but otherwise she has no complaints. she was extubated yesterday and is breathing wo problems. Exam - Constitutional Vitals: Period Temp Pulse Resp BP Sys/Murdock Pulse Ox Last 24 Hr 96.7 F-97.6 F 52-90 13-24 95-215/43-98 96-100 Exam: 75AAF, NAD, alert and oriented chest clear to auscultation, expanding hematoma to left chest wall, incision looks ok cv pratik but regular abd soft nt ext no edema Results - Labs CBC & BMP: 06/15/16 03:55 06/15/16 03:55 Lab Results: I have reviewed the past 24 hour labs Quality Measures - VTE Contraindication to Pharmacological VTE Prophylaxis: High Risk of Bleeding
[2016-06-15] MEDS: DILTIAZEM 90 MG TABLET PO SCH ×4 (09:00→20:41)
[2016-06-15] MEDS: ASPIRIN CHEW 81 MG TABLET PO SCH (09:00)
[2016-06-15] MEDS ORDERED: BUPIVACAINE MPF 0.25% /EPI 30 ML VIAL ONE (09:02)
--- NOTE | 2016-06-15 09:11 | XRay Report ---
Referring Physician: Dru Arredondo MD Exam: XR chest 1V portable Date: June 15, 2016 at 3:25 AM Reason: Ventilator Comparison: Chest one view portable June 14, 2016 Findings: The previously seen endotracheal tube and feeding tube have been removed. Surgical clips are again seen at the lower neck. The cardiac silhouette is again enlarged. The interstitial markings are prominent bilaterally. This is most consistent with pulmonary edema, but other considerations include pneumonia. No pneumothorax is identified, but there may be minimal bilateral pleural fluid. The osseous structures appear stable. Surgical josemanuel/clips and drains again project at the left breast/chest. Impression: The previously seen endotracheal tube and feeding tube have been removed. There is also improved aeration of both lungs. The interstitial markings are still prominent bilaterally, which is concerning for mild pulmonary edema. PROCEDURE INTERPRETED AT [facility] DEPARTMENT OF RADIOLOGY Final Report Signed by: Dr. Nikki Gonzales
--- NOTE | 2016-06-15 09:44 | Event Note ---
Patient is stable and feels well but has a large hematoma needs her mastectomy flaps. This is likely secondary to anticoagulation that was needed because of concern of possible pulmonary embolism when she had respiratory failure. We will evacuate the hematoma which hopefully can be accomplished under sedation and local anesthesia. The procedure and risks were discussed in detail with the patient and by telephone with the family. The family is on their way here. We will go ahead and proceed.
[2016-06-15] MEDS ORDERED: SPRAY APPLICATOR KIT 1 EACH MISC ONE (10:01)
[2016-06-15] MEDS ORDERED: THROMBIN TOPICAL (RECOMBINANT) 5,000 UNIT VIAL TOP ONE (10:01)
--- NOTE | 2016-06-15 10:31 | Operative Note ---
Date of procedure: 06/15/16 Pre-op diagnosis: Hematoma left mastectomy wound Post-op diagnosis: same Procedure: Evacuation of left mastectomy wound hematoma Findings and technique: After informed consent was obtained the patient was brought the operating room and placed in supine position. After IV sedation was administered the patient's left chest was prepped and draped in usual sterile fashion and her ELLA drains removed. Her incision was partially opened in the midportion of the incision removing skin clips and Vicryl sutures. A large hematoma which was entirely clotted was identified mainly beneath the superior flap. This was manually evacuated using fingertips and suction cannula and the pectoralis muscle exposed. There were no arterial bleeders but there were a few easy oozing points along the muscle which were cauterized. The axillary space was also evacuated of hematoma and no bleeder noted in the axillary space. This was irrigated and then all of the raw surfaces coated with spray thrombin. 2 new 10 mm ELLA drains were placed in the wound closed with a deep layer of interrupted 3-0 Vicryl cutaneous suture and the skin with skin clips. A bulky compressive dressing was then applied like we had done with the previous procedure. Anesthesia: MAC, local Surgeon / Physician: Greyson Thomas III. Estimated blood loss: other (50 mL) Specimens: none sent Condition: stable Disposition: PACU Results - Labs CBC & BMP: 06/15/16 03:55 06/15/16 03:55 Discharge Plan - Discharge Medications No Action Triamcinolone Acetonide [Triamcinolone 0.1% Cream] 1 applic TOP BID Tacrolimus [Protopic 0.1% Oint] 1 actuation TP DIRECTED Omeprazole [Prilosec] 20 mg PO DAILY Insulin NPH/Regular 70/30 [HumuLIN 70/30] 40 unit SUBCUT RT DAILY Multivitamin [Multivitamins] 1 each PO DAILY Gabapentin Cap/Tab [Neurontin Cap/Tab] 300 mg PO DAILY metOLazone [Metolazone] 2.5 mg PO DAILY Hydroxyurea [Hydrea] 500 mg PO DAILY Furosemide Tab [Lasix Tab] 40 mg PO DAILY Methocarbamol Tab [Robaxin Tab] 750 mg PO BID Vits #90/Iron Fum/FA [ Formula Tablet] 1 each PO DAILY HYDROcodone/ACETAMIN 7.5-325 [Zamora 7.5-325] 1 tablet PO Q4H PRN PRN Reason: Pain dilTIAZem HCl [Diltiazem ER (24 hr)] 360 mg PO DAILY Aspirin 81 mg PO DAILY - Follow Up or Referral - Forms/Instructions
--- NOTE | 2016-06-15 10:58 | Anesthesia Post-Op ---
Anesthesia Post OP - Post Ansesthetic Evaluation Patient seen in post op: Yes Resp: within normal limits CV: within normal limits Mental: within normal limits Temp: within normal limits Abcs-Lt-Ouffbgvle: within normal limits Nausea and Vomiting: within normal limits Pain: within normal limits
[2016-06-15] MEDS ORDERED: KETAMINE 500 MG/10 ML VIAL ONE (11:01)
[2016-06-15] MEDS ORDERED: MIDAZOLAM 2 MG/2 ML VIAL ONE (11:02)
[2016-06-15] MEDS ORDERED: fentaNYL 100 MCG/2 ML VIAL ONE (11:02)
[2016-06-15] MEDS ORDERED: PROPOFOL 200 MG/20 ML VIAL IV ONE (11:02)
[2016-06-15] MEDS: FUROSEMIDE 40 MG TABLET PO SCH (12:58)
[2016-06-15] MEDS: PANTOPRAZOLE 40 MG TABLET PO SCH (12:59)
[2016-06-15] MEDS: GABAPENTIN 300 MG CAPSULE PO SCH (12:59)
[2016-06-15] MEDS: metOLazone 2.5 MG TABLET PO SCH (12:59)
[2016-06-15 13:04] LABS: INR 1.1; PT Patient Result 11.4 SECS; Partial Thromboplastin Time 27.6 SECS (0-40)
[2016-06-15] MEDS: FUROSEMIDE 40 MG/4 ML VIAL IV SCH (13:06)
[2016-06-15] MEDS: PROPOFOL 1,000 MG/100 ML BOTTLE IV SCH (14:27)
[2016-06-15] MEDS: LEVOFLOXACIN INJ 500 MG in PREMIX 1 EACH IV SCH (15:55)
[2016-06-15 17:30] LABS: Hematocrit 24.5 VOL% (35.7-47.0); Hemoglobin 8.2 GM/DL (12.0-16.0)
[2016-06-15] MEDS: SODIUM CHLORIDE 0.9% 1,000 ML IV SCH (20:41)
[2016-06-15 20:48] LABS: Hematocrit 22.8 VOL% (35.7-47.0); Hemoglobin 7.6 GM/DL (12.0-16.0)
[2016-06-16] MEDS: methylPREDNISolone SOD SUC 40 MG/1 ML VIAL IV SCH ×2 (03:20→14:14)
[2016-06-16 05:50] LABS: Basophils % 0.1 % (0.0-0.8); Hematocrit 29.2 VOL% (35.7-47.0); Hemoglobin 9.6 GM/DL (12.0-16.0); Immature Granulocytes % 1.7 %; Immature Granulocytes Absolute 0.26 #; Lymphocytes # 0.9 10*3/uL (1.4-4.0); Lymphocytes % 5.8 % (21.3-54.2); Mean Corpuscular HGB Conc 32.9 GM/DL (32-36); Mean Corpuscular Hemoglobin 28 PG (27-34); Mean Corpuscular Volume 84.1 FL (87-102); Mean Platelet Volume 10.7 FL (9.6-12.0); Monocytes # 0.8 10*3/uL (0.11-0.8); Monocytes % 5.1 % (1.7-12.7); NRBC # 0.02 10*3/uL; Neutrophils # 13.4 10*3/uL (1.4-7.4); Neutrophils % 87.3 % (38.7-73.9); Platelet Count 332 T/CUMM (130-400); Red Blood Count 3.47 MC/CUMM (3.8-5.5); Red Cell Distribution Width 16.6 % (9.3-17.3); White Blood Count 15.3 T/CUMM (4-12)
[2016-06-16] MEDS: CLINDAMYCIN INJ 600 MG in PREMIX 1 EACH IV SCH ×3 (06:15→21:30)
[2016-06-16 06:19] LABS: Calcium 8.2 MG/DL (8.5-10.1); Osmolality,Calculated 285.8 MOS/KG (273-304); Potassium 4.9 MMOL/L (3.5-5.1)
--- NOTE | 2016-06-16 06:54 | Pulmonology Progress Note ---
Pulmonary - PN: Subj Interval history: Umu Barnes is a 75-year-old black lady that had a left mastectomy a couple days ago. Postop she has some respiratory insufficiency and had to be reintubated. She was extubated and has done fairly well off the ventilator. Yesterday she went back to surgery and had the hematoma evacuated and no drains placed. She did well with the surgery and she is breathing well. She did require a couple units of blood. She says she feels better today and is not short of breath. Her chest x-ray is clear. She is eating and overall doing better. Exam (Progress Note) - Constitutional Vitals: Period Temp Pulse Resp BP Sys/Murdock Pulse Ox Last 24 Hr 96.9 F-98.7 F 59-91 12-22 105-163/40-84 95-99 Exam: General appearance: normal weight, no acute distress (She is talking and alert. She is breathing comfortably.) - Head Head exam: Present: normal inspection, normocephalic - Eye Eye exam: Present: EOMI. Absent: scleral icterus Pupils: Present: LIZZETH - ENT ENT exam: Present: normal exam - Neck Neck exam: Present: normal inspection. Absent: lymphadenopathy, thyromegaly - Respiratory Respiratory exam: Present: clear to auscultation bilaterally, she is moving air well without any wheezing. Other, the chest wall swelling is better. - Cardiovascular Cardiovascular exam: Present: regular rate and rhythm. Absent: gallop, systolic murmur - GI/Abdominal GI/Abdominal exam: Present: normal bowel sounds, soft. Absent: distended, organomegaly, tenderness - Extremities Exam Extremities exam: Absent: calf tenderness, edema - Neurological Exam Neurological exam: Present: alert, oriented X3, CN II-XII intact - Psychiatric Psychiatric exam: Present: normal affect - Skin Skin exam: Present: warm, dry Results - Labs CBC & BMP: 06/16/16 05:46 06/16/16 05:46 - Diagnostic Findings Procedure: Chest x-ray: image reviewed by me, report reviewed by me (Chest x- ray is clear.) Assessment and Plan (1) Postoperative respiratory failure Status: Acute Assessment and plan: The patient had some trouble early postop but is doing better now. She does not have any respiratory distress now. Current Visit: Yes (2) Status post left mastectomy for breast c Status: Acute Assessment and plan: The patient had the mastectomy and yesterday had the hematoma evacuated. She says she is feeling much better with much less swelling. Current Visit: Yes (3) Diabetes type 2, controlled Status: Acute Assessment and plan: Her glucose is 188 this morning. She is getting insulin. Current Visit: Yes (4) Essential hypertension Status: Acute Assessment and plan: Her blood pressure has been stable so far. Current Visit: Yes (5) Renal insufficiency, mild Status: Acute Assessment and plan: Her creatinine is 1.6 today. Current Visit: Yes (6) Aspiration syndrome Status: Acute Assessment and plan: She was felt to possibly have had mild aspiration but she is doing better now. She is breathing comfortably and her chest x-ray is clear. Current Visit: Yes
[2016-06-16] MEDS: INSULIN REGULAR 100 UNIT/ML SUBCUT SCH ×4 (07:55→21:30)
--- NOTE | 2016-06-16 08:34 | Event Note ---
06/16/2016 Patient is better at this time and there is no significant swelling in the breast at this point. Drainage is minimal and hematocrit up to 29. She appears to be stable no sign of any further bleeding.
--- NOTE | 2016-06-16 09:01 | Hospitalist Progress Note ---
Assessment and Plan - Time spent with patient Time spent with patient: Greater than 30 minutes (1) Postoperative respiratory failure Status: Resolved Assessment and plan: Resolved. Oxygenating well on 2LNC. Stable for transfer to floor from my standpoint. Current Visit: Yes (2) Breast hematoma after procedure Status: Acute Assessment and plan: POD#1 s/p evacuation of hematoma. Current Visit: Yes (3) Acute blood loss anemia Status: Acute Assessment and plan: s/p transfusion of 2 units PRBCs after procedure yesterday. Hb 9.6 this am. Current Visit: Yes (4) Status post left mastectomy for breast c Status: Acute Current Visit: Yes (5) Diabetes type 2, controlled Status: Chronic Current Visit: Yes (6) Essential hypertension Status: Chronic Current Visit: Yes (7) Renal insufficiency, mild Status: Chronic Current Visit: Yes Hospitalist: Subjective Interval history: pt is without complaint. Pain controlled. No SOB Exam - Constitutional Vitals: Period Temp Pulse Resp BP Sys/Murdock Pulse Ox Last 24 Hr 96.9 F-98.7 F 59-91 12-22 105-163/40-84 95-99 General appearance: no acute distress - Head Head exam: Present: normal inspection, normocephalic, atraumatic - Eye Eye exam: Present: EOMI. Absent: conjunctival injection, scleral icterus Pupils: Present: LIZZETH - ENT ENT exam: Present: normal exam - Neck Neck exam: Present: normal inspection. Absent: lymphadenopathy - Respiratory Respiratory exam: Present: clear to auscultation bilaterally, other (chest wall surgical site CDI). Absent: accessory muscle use - Cardiovascular Cardiovascular exam: Present: regular rate and rhythm. Absent: gallop, rubs - GI/Abdominal GI/Abdominal exam: Present: normal bowel sounds. Absent: distended, guarding, tenderness - Extremities Exam Extremities exam: Present: normal inspection, full ROM - Neurological Exam Neurological exam: Present: alert, oriented X3 - Psychiatric Psychiatric exam: Present: normal affect, normal mood - Skin Skin exam: Present: normal color, warm, dry Results - Labs CBC & BMP: 06/16/16 05:46 06/16/16 05:46 Quality Measures - VTE Contraindication to Pharmacological VTE Prophylaxis: High Risk of Bleeding
[2016-06-16] MEDS: DILTIAZEM 90 MG TABLET PO SCH ×4 (09:43→21:25)
[2016-06-16] MEDS: FUROSEMIDE 40 MG TABLET PO SCH (09:43)
[2016-06-16] MEDS: PANTOPRAZOLE 40 MG TABLET PO SCH (09:43)
[2016-06-16] MEDS: GABAPENTIN 300 MG CAPSULE PO SCH (09:43)
[2016-06-16] MEDS: ASPIRIN CHEW 81 MG TABLET PO SCH (09:44)
[2016-06-16] MEDS: metOLazone 2.5 MG TABLET PO SCH (09:44)
--- NOTE | 2016-06-16 09:52 | XRay Report ---
Referring Physician: Dru Arredondo MD Exam: XR chest 1V portable Date: June 16, 2016 at 3:29 AM Reason: Recent ventilation Comparison: Chest one view portable June 15, 2016 Findings: The cardiac silhouette is again mildly enlarged, and there are surgical clips at the lower neck near the thoracic inlet. There are also minimal scattered opacities within the right lung, which are favored to represent atelectasis. A calcified granuloma is also suspected within the right lower lung zone. No pneumothorax is identified, but there may be minimal left pleural fluid. A drainage catheter also projects at the left chest/breast. The osseous structures appear stable. Impression: Minimal scattered atelectasis is suspected within the right lung, and there may be minimal left pleural fluid. However, there is no evidence of pulmonary edema today. PROCEDURE INTERPRETED AT [facility] DEPARTMENT OF RADIOLOGY Final Report Signed by: Dr. Nikki Gonzales
[2016-06-16] MEDS: INSULIN NPH/REGULAR 70/30 100 UNIT/ML SUBCUT SCH (10:52)
[2016-06-16] MEDS: SODIUM CHLORIDE 0.9% 1,000 ML IV SCH (14:30)
[2016-06-16] MEDS: LEVOFLOXACIN INJ 500 MG in PREMIX 1 EACH IV SCH (17:25)
[2016-06-17] MEDS: methylPREDNISolone SOD SUC 40 MG/1 ML VIAL IV SCH (01:14)
[2016-06-17] MEDS: CLINDAMYCIN INJ 600 MG in PREMIX 1 EACH IV SCH (06:20)
--- NOTE | 2016-06-17 08:17 | Pulmonology Progress Note ---
Pulmonary - PN: Subj Interval history: This is a 75-year-old lady that had left mastectomy yesterday and had some respiratory difficulty postoperatively. She had to be reintubated. Chest x- ray has shown a right sided infiltrate primarily. My suspicion is that she had some aspiration. She does not have significant underlying chronic lung problems. She has never been a smoker. Her PO2 is 90 on 50% oxygen this morning. That is adequate for a weaning trial. We will hold her propofol and see if we can get her extubated today. We need to keep her on the dry side in order to keep her lungs from getting wet. I have decreased the saline and ordered Lasix. Unfortunately chemistries are not back yet this morning. 06/17/2016 patient's chest x-ray is now essentially clear. I think her aspiration syndrome is resolving. Will stop Solu-Medrol and Cleocin. Change to oral Levaquin. Oxygen saturation is been in the upper 90s on nasal oxygen. We can probably do well on room air now. Exam (Progress Note) - Constitutional Vitals: Period Temp Pulse Resp BP Sys/Murdcok Pulse Ox Last 24 Hr 96.4 F-98.8 F 18-93 13-24 118-154/56-88 94-100 Exam: Patient is alert and oriented. Vital signs normal. Pupils react to light. Neck is supple no bruits. Chest sounds clear. Heart normal rate and rhythm no murmurs. Abdomen soft nontender no masses. Extremities no clubbing cyanosis or edema. She has a bandage across her left chest. Results - Labs CBC & BMP: 06/16/16 05:46 06/16/16 05:46 Lab Results: I have reviewed the past 24 hour labs - Diagnostic Findings Procedure: Chest x-ray: image reviewed by me (Yesterday's chest x-ray shows a clear right lung now.) Assessment and Plan (1) Postoperative respiratory failure Status: Resolved Assessment and plan: She has diffuse right infiltrate. Mild best judgment would be that this would be aspiration. Will obtain venous Dopplers and put on DVT prophylaxis. However this would be too early to be a pulmonary embolus. She has a creatinine of about 1.8 and I would be concerned about doing a CT PE protocol 06/14/2016 ABGs look adequate for weaning. Check mechanics this morning. May take another day or 2. Again I suspect this is due to aspiration. 508 17 postop respiratory failure has resolved. Likely had an aspiration episode. Has not developed belen pneumonia. Current Visit: Yes (2) Status post left mastectomy for breast c Status: Acute Assessment and plan: She did well with surgery. Had problems postoperatively. 06/14/2016 no problems at mastectomy site. 06/17/2016 required drainage of hematoma over the weekend. Otherwise doing well from breast surgery. Current Visit: Yes (3) Diabetes type 2, controlled Status: Chronic Assessment and plan: Sliding scale insulin. 06/14/2016 glucoses look okay. 06/17/2016 glucoses have been between 203 100. This is likely due to the steroids. Steroids were stopped today. This should resolve. Current Visit: Yes (4) Essential hypertension Status: Chronic Assessment and plan: Systolic blood pressure running 180 and 190. Will manage with labetalol. 06/14/2016 blood pressure is well controlled. 06/17/2016 blood pressure well controlled. Current Visit: Yes (5) Essential thrombocythemia Status: Acute Assessment and plan: Platelet count was 397,000 yesterday which is normal. Holding Hydrea for now. 06/14/2016 check CBC tomorrow. 06/17/2016 no problems with platelet count. 332,000. Current Visit: Yes (6) Aspiration syndrome Status: Acute Assessment and plan: She has an acute right pulmonary infiltrate with hypoxemia following surgery. Aspiration would be the most likely cause. Will cover with steroids as well as Cleocin and Levaquin. Considering pulmonary emboli but I think that is unlikely. Will check venous Dopplers and put on DVT prophylaxis. 06/14/2016 patient is on empiric steroids and antibiotics. Venous Dopplers were negative. Do not think she had pulmonary emboli. 06/17/2016 radiographically this has resolved. Gas exchange appears to be improved as well. Stop steroids and Cleocin. Oral Levaquin for a few more days to be safe. Current Visit: Yes
[2016-06-17 08:28] LABS: Basophils % 0.1 % (0.0-0.8); Eosinophils % 0.1 % (0.00-10.9); Hematocrit 28.7 VOL% (35.7-47.0); Hemoglobin 9.9 GM/DL (12.0-16.0); Immature Granulocytes % 2.4 %; Immature Granulocytes Absolute 0.39 #; Lymphocytes # 1.3 10*3/uL (1.4-4.0); Lymphocytes % 7.6 % (21.3-54.2); Mean Corpuscular HGB Conc 34.5 GM/DL (32-36); Mean Corpuscular Hemoglobin 28 PG (27-34); Mean Corpuscular Volume 80.8 FL (87-102); Mean Platelet Volume 11.6 FL (9.6-12.0); Monocytes # 0.8 10*3/uL (0.11-0.8); Monocytes % 4.7 % (1.7-12.7); Neutrophils % 85.1 % (38.7-73.9); Platelet Count 307 T/CUMM (130-400); Red Blood Count 3.55 MC/CUMM (3.8-5.5); Red Cell Distribution Width 16.4 % (9.3-17.3); White Blood Count 16.4 T/CUMM (4-12)
--- NOTE | 2016-06-17 08:36 | Event Note ---
She feels well. She has had no shortness of breath. She has had no further signs of bleeding or hematoma and her wound looks okay. Her hematocrit is stable. We should be able to get her home once it is okay from a medical standpoint.
[2016-06-17 08:50] LABS: Hypochromasia 1+; Lymphocytes 3 % (20-55); Microcytosis 1+; Platelet Estimate Adequate; Segmented Neutrophils 91 % (50-85); Total Cells Counted 100
[2016-06-17] MEDS: GABAPENTIN 300 MG CAPSULE PO SCH (08:52)
[2016-06-17] MEDS: INSULIN NPH/REGULAR 70/30 100 UNIT/ML SUBCUT SCH (08:52)
[2016-06-17] MEDS: INSULIN REGULAR 100 UNIT/ML SUBCUT SCH ×2 (08:52→11:45)
[2016-06-17] MEDS: metOLazone 2.5 MG TABLET PO SCH (08:53)
[2016-06-17] MEDS: PANTOPRAZOLE 40 MG TABLET PO SCH (08:53)
[2016-06-17] MEDS: ASPIRIN CHEW 81 MG TABLET PO SCH (08:53)
[2016-06-17] MEDS: FUROSEMIDE 40 MG TABLET PO SCH (08:53)
[2016-06-17] MEDS: DILTIAZEM 90 MG TABLET PO SCH ×2 (08:53→15:45)
[2016-06-17 08:54] LABS: Calcium 8.4 MG/DL (8.5-10.1); Osmolality,Calculated 290.8 MOS/KG (273-304); Potassium 4.9 MMOL/L (3.5-5.1)
[2016-06-17] MEDS ORDERED: LEVOFLOXACIN 500 MG TABLET PO SCH (09:00)
--- NOTE | 2016-06-17 11:19 | Pathology Report from [facility] ---
ACCESSION # : [id number] PATIENT NAME : Umu Barnes ORDERING DR : CUBA ENCARNACION III, MD CLINICAL HX: CA LT breast POST-OP DX: Same SPECIMEN INFO: #1 SLN #2 LT breast tissue GROSS DESCRIPTION: #1 Received fresh for frozen section labeled "[facility] B[facility]ES & # 1" consists of a fatty lymph node measuring 3.0 x 1.0 cm, sectioned and submitted in cassette #1 for frozen section.#2 Received fresh labeled "[facility] B[facility]ES & #2" is a left breast modified radical mastectomy measuring 23.5 x 20.5 x 6.3 cm. An ellipse of brown skin is present on the surface measuring 20.2 x 12.5 cm. The nipple is grossly unremarkable. Sectioning reveals a firm pink white nodule measuring 1.0 x 0.7 cm which is situated within the lower outer quadrant at the 3:00-4:00 position and grossly comes to within 4.0 cm of the inferior superficial margin. Further sectioning reveals three pink salas nodules measuring from 0.4 x 0.4 cm to 1.2 x 0.6 cm which are situated 5.0 cm from the first primary nodule and which grossly come to within 3.0 cm of the inferior superficial margin. Lymph nodes will be submitted following fixation. Sections submitted 2A-Nipple and skin, 2B-1st nodule, 2C-Inferior superficial margin near 1st nodule, 2D-3 separate nodules, 2E-Inferior superficial margin near separate nodules, 2F-Fruit Washer deep margin, , 2G-Lymph nodes.NOTE: Time in formalin is 9:10 a.m. and time out of formalin is 6:00 p.m. . June 13. 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 NUCLEAR GRADE: I SITE: LOQ SIZE: 10 mm; additional tumor foci (4), 2 -12 mm. NECROSIS: Absent. MARGINS: Uninvolved, with nearest (deep) margin = 3 mm. LYMPH NODES: Total sentinel & nonsentinel lymph nodes: 1; Total sentinel nodes: 1. One sentinel node with no metastatic tumor seen on H&E levels or pancytokeratin immunostain ( 0/1). AJCC Pathologic Stage 0 [pTis(DCIS)pN0(i-)]. SERVICE DATE: 06/13/2016 REPORT DATE: 06/14/2016 PATHOLOGIST: Madelin Ulloa M.D. [facility]
--- NOTE | 2016-06-17 13:47 | Discharge Summary ---
Hospital Course - Hospital Course Hospital Course: The patient underwent lft modified radical mastectomy with axillary dissection and SNB. The patient has baseline progressed COPD and suffered respiratory failure postoperatively suspected secondary to aspiration. She required reintubation in ICU POD #0 and IV abx were initiated. Pulmonology and Hospitalist services assisted in medical management of the patient. Extubated POD #1. She additionally required evacuation of left breast hematoma POD #2 which she tolerated without complication. Ultimately, the patient was vitally stable, voiding without difficulty, tolerating p.o. intake, and saturating well on room air. Remaining leukocytosis was attributed to recent corticosteroids which were stopped on day of discharge. 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 Status: Acute (2) Aspiration syndrome Status: Acute (3) Postoperative respiratory failure Status: Resolved (4) Breast hematoma after procedure Status: Acute (5) Essential thrombocythemia Status: Acute (6) Renal insufficiency, mild Status: Chronic (7) Essential hypertension Status: Chronic (8) Diabetes type 2, controlled Status: Chronic Specialty Discharge - Follow Up or Referrals Follow up with: Greyson Thomas III., MD [Physician] - 06/24/16 9:45 am Dru Arredondo MD [Physician] - 07/01/16 1:30 pm (As scheduled or 1 month, whichever is first) Discharge Plan - Discharge Data Disposition: Home Health Service Condition at Discharge: Stable Discharge Diet: advance to your usual diet Activity: no lifting (> 5 lb with LUE until discussed with Dr. Thomas at follow up) Hygiene: may shower, keep area(s) dry Driving: not until seen by doctor Contact your physician if you experience:: fever over 101, Difficulty voiding, Redness or swelling, Nausea/Vomiting, Shortness of breath, Bleeding, pain uncontrolled by pain medications Wound / Dressing Care Instructions: Keep wounds clean, dry and covered with compressive dressing in place - Discharge Medications New Levofloxacin Tab [Levaquin Tab] 500 mg PO DAILY #7 tablet Continue Triamcinolone Acetonide [Triamcinolone 0.1% Cream] 1 applic TOP BID Tacrolimus [Protopic 0.1% Oint] 1 actuation TP DIRECTED Omeprazole [Prilosec] 20 mg PO DAILY Insulin NPH/Regular 70/30 [HumuLIN 70/30] 40 unit SUBCUT RT DAILY Multivitamin [Multivitamins] 1 each PO DAILY Gabapentin Cap/Tab [Neurontin Cap/Tab] 300 mg PO DAILY metOLazone [Metolazone] 2.5 mg PO DAILY Hydroxyurea [Hydrea] 500 mg PO DAILY Furosemide Tab [Lasix Tab] 40 mg PO DAILY Methocarbamol Tab [Robaxin Tab] 750 mg PO BID Vits #90/Iron Fum/FA [ Formula Tablet] 1 each PO DAILY HYDROcodone/ACETAMIN 7.5-325 [[place] 7.5-325] 1 tablet PO Q4H PRN #40 tablet PRN Reason: Pain Moderate To Severe (4-10) dilTIAZem HCl [Diltiazem ER (24 hr)] 360 mg PO DAILY Aspirin 81 mg PO DAILY Discontinued HYDROcodone/ACETAMIN 7.5-325 [[place] 7.5-325] 1 tablet PO Q4H PRN PRN Reason: Pain - Follow Up or Referral Follow Up: Greyson Thomas III., MD [Physician] - 06/24/16 9:45 am Dru Arredondo MD [Physician] - 07/01/16 1:30 pm (As scheduled or 1 month, whichever is first) - Forms/Instructions Instructions: Incision and Drainage (DC), Magdaleno J-P Drain Discharge Instructions, Mastectomy (DC) Exam - Constitutional Vitals: Period Temp Pulse Resp BP Sys/Murdock Pulse Ox Last 24 Hr 96.4 F-98.8 F 18-82 16-20 124-156/61-88 94-100 General appearance: no acute distress - Head Head exam: Present: normocephalic - Respiratory Respiratory exam: Present: clear to auscultation bilaterally - Cardiovascular Cardiovascular exam: Present: regular rate and rhythm - GI/Abdominal GI/Abdominal exam: Present: normal bowel sounds, soft. Absent: distended, tenderness - Extremities Exam Extremities exam: Absent: calf tenderness, edema - Neurological Exam Neurological exam: Present: alert, oriented X3 - Skin Skin exam: Present: other (compressive dressing in place - clean and dry without palpable hematoma) Discharge Results Procedures and tests throughout hospitalization: 1. Left modified radical mastectomy with level 1 axillary lymph node dissection. 2. SNB - excision of lower axillary sentinel lymph node 3. Evacuation of p/o left breast hematoma Pathology: One sentinel node with no metastatic tumor seen on H and E, levels or pancytokeratin immunostain Labs on day of discharge: Labs from last 24 hours 06/17/16 06/17/16 06/17/16 10:57 08:17 08:17 WBC 16.4 H RBC 3.55 L Hgb 9.9 L Hct 28.7 L MCV 80.8 L MCH 28 MCHC 34.5 RDW 16.4 Plt Count 307 MPV 11.6 Neut % (Auto) 85.1 H Lymph % (Auto) 7.6 L Waldo % (Auto) 4.7 Eos % (Auto) 0.1 Baso % (Auto) 0.1 Neut # (Auto) 14.0 H Lymph # (Auto) 1.3 L Waldo # (Auto) 0.8 Eos # (Auto) 0.0 Baso # (Auto) 0.0 Total Counted 100 Immature Gran % 2.4 Nucleated RBC % 0.0 Immature Gran # 0.39 Segmented Neutrophils 91 H Lymphocytes 3 L Monocytes 6 Nucleated RBCs # 0.00 Platelet Estimate Adequate Hypochromasia 1+ Microcytosis 1+ Sodium 137 Potassium 4.9 Chloride 102 Carbon Dioxide 28 Anion Gap 11.9 BUN 40 H Creatinine 1.60 H GFR Calculation 47 BUN/Creatinine Ratio 25.00 H Glucose 235 H POC Glucose 334 H Calculated Osmolality 290.8 Calcium 8.4 L 06/17/16 06/16/16 06/16/16 07:10 20:44 16:15 WBC RBC Hgb Hct MCV MCH MCHC RDW Plt Count MPV Neut % (Auto) Lymph % (Auto) Waldo % (Auto) Eos % (Auto) Baso % (Auto) Neut # (Auto) Lymph # (Auto) Waldo # (Auto) Eos # (Auto) Baso # (Auto) Total Counted Immature Gran % Nucleated RBC % Immature Gran # Segmented Neutrophils Lymphocytes Monocytes Nucleated RBCs # Platelet Estimate Hypochromasia Microcytosis Sodium Potassium Chloride Carbon Dioxide Anion Gap BUN Creatinine GFR Calculation BUN/Creatinine Ratio Glucose POC Glucose 255 H 265 H 293 H Calculated Osmolality Calcium - Imaging and Cardiology Procedure: Chest x-ray: image reviewed by me, report reviewed by me (Serial cXR) DS: Provider Date of admission: 06/14/16 08:40 Primary care physician: . No PCP Attending physician on admission: Filipe Trevizo MD Consults: 06/13/16 09:12 Consult to Physician [CONS] Routine Comment: Management of diabetes and COPD Consulting Provider: Consult to Specialist Group: Hospitalist When should Consulting Provider be notified: Now Person Notified: dr mejia Date Notified: 06/13/16 Time Notified: 14:50 06/13/16 10:13 Consult to Physician [CONS] Routine Comment: pt known to him. Consulting Provider: Dru Arredondo 06/13/16 13:01 Consult to Pharmacy [CONS] Routine Reason for Pharmacy Consult: Adjust Meds Renal Funct 06/13/16 13:29 Consult to Dietitian [CONS] Routine Reason for Dietitian: Other 06/13/16 13:33 Consult to Pastoral Services [CONS] Routine Comment: Pastoral Screen: Request Intelligence Engineer Visit Pastoral Screen Source of Request: Family 06/15/16 08:45 Consult to Anesthesiology [CONS] Routine Consulting Provider: Reason for Anesthesiology: Pre-op Clearance Consult to Anesthesiology [CONS] Routine Consulting Provider: Reason for Anesthesiology: Pre-op Clearance Consult Comment: MAC not general 06/17/16 09:37 Consult to Case Mgmt/Social Srvs [CONS] Routine Reason for Case Mgmt/Social Srvs: Discharge Planning Consult Comment: home health Discharging clinician: Laura Yun PA-C
--- NOTE | 2016-06-17 14:45 | Pathology Report from [facility] ---
ACCESSION # : [id number] PATIENT NAME : Umu Barnes ORDERING DR : CUBA ENCARNACION III, MD CLINICAL HX: CA LT breast POST-OP DX: Same SPECIMEN INFO: #1 SLN #2 LT breast tissue GROSS DESCRIPTION: #1 Received fresh for frozen section labeled "[facility] & # 1" consists of a fatty lymph node measuring 3.0 x 1.0 cm, sectioned and submitted in cassette #1 for frozen section.#2 Received fresh labeled "[facility] B[facility]ES & #2" is a left breast modified radical mastectomy measuring 23.5 x 20.5 x 6.3 cm. An ellipse of brown skin is present on the surface measuring 20.2 x 12.5 cm. The nipple is grossly unremarkable. Sectioning reveals a firm pink white nodule measuring 1.0 x 0.7 cm which is situated within the lower outer quadrant at the 3:00-4:00 position and grossly comes to within 4.0 cm of the inferior superficial margin. Further sectioning reveals three pink salas nodules measuring from 0.4 x 0.4 cm to 1.2 x 0.6 cm which are situated 5.0 cm from the first primary nodule and which grossly come to within 3.0 cm of the inferior superficial margin. Lymph nodes will be submitted following fixation. Sections 2A-Nipple and skin, 2B-1st nodule, 2C-Inferior superficial margin near 1st nodule, 2D-3 separate nodules, 2E-Inferior superficial margin near separate nodules, 2F-Horticultural Nursery Assistant deep margin, 2G-2I Lymph nodes. NOTE: Time in formalin is 9:10 a.m. and time out of formalin is 6:00 p.m. . June 13. 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 NUCLEAR GRADE: I SITE: LOQ SIZE: 10 mm; additional tumor foci (4), 2 -12 mm. NECROSIS: Absent. MARGINS: Uninvolved, with nearest (deep) margin = 3 mm. LYMPH NODES: Total sentinel & nonsentinel lymph nodes: 1; Total sentinel nodes: 1. One sentinel node with no tumor seen on H&E levels or pancytokeratin immunostain (0/1). AJCC Pathologic Stage 0 [pTis(DCIS)pN0(i-)]. SERVICE DATE: 06/13/2016 REPORT DATE: 06/14/2016 PATHOLOGIST: Kristen Castillo
[2016-06-17 16:00] VITALS: BP 113/85
[2016-06-17] MEDS ORDERED: PROTOPIC 0.1% TP SCH (21:00)
== END 2016-06-17 17:20 | disposition home health service (06) | DRG 579 ==
LOC: SUATTDRO → N.OR 05:34 → N.SDSINP 05:34 → N.CC 11:06 → SUATTDRO 06-14 08:40 → N.CC 06-14 08:40 → N.3E 06-16 18:20
PROVIDERS: ADMIT Internal Medicine; ATTEND Pediatrics

== ENCOUNTER 2017-08-13 06:33 | Inpatient (IN) ==
[2017-08-21 12:42] VITALS: BP 148/66
== END 2017-08-21 16:55 | DRG 552 ==
LOC: EDUNIT# → EDBD → N.ED 06:33 → N.EDINP 11:47 → N.4E 13:32
PROVIDERS: ADMIT Internal Medicine; ATTEND Internal Medicine

== ENCOUNTER 2017-10-08 15:57 | Inpatient (IN) ==
[2017-10-08] MEDS ORDERED: ALBUTEROL/IPRATROPIUM 3 ML NEB RESP TX STA (16:19)
[2017-10-08 18:18] LABS: Basophils # 0.3 10*3/uL (0.0-0.2); Basophils % 1.3 % (0.0-0.8); Eosinophils # 0.2 10*3/uL (0.0-0.87); Eosinophils % 0.9 % (0.00-10.9); Hematocrit 22.2 VOL% (35.7-47.0); Hemoglobin 7.5 GM/DL (12.0-16.0); Immature Granulocytes Absolute 2.13 #; Lymphocytes % 15.2 % (21.3-54.2); Mean Corpuscular HGB Conc 33.8 GM/DL (32-36); Mean Corpuscular Hemoglobin 28 PG (27-34); Mean Corpuscular Volume 82.2 FL (87-102); Mean Platelet Volume 11.2 FL (9.6-12.0); Monocytes # 2.7 10*3/uL (0.11-0.8); Monocytes % 13.9 % (1.7-12.7); Neutrophils # 11.2 10*3/uL (1.4-7.4); Neutrophils % 57.7 % (38.7-73.9); Platelet Count 174 T/CUMM (130-400); Red Cell Distribution Width 18.1 % (9.3-17.3); White Blood Count 19.4 T/CUMM (4-12)
[2017-10-08 18:26] LABS: INR 1.1; PT Patient Result 11.5 SECS
[2017-10-08 18:38] LABS: Lactic Acid 1.7 MMOL/L (0.4-2.0)
[2017-10-08 18:40] LABS: Alanine Aminotransferase 43 U/L (13-56); Albumin 2.7 G/DL (3.4-5.0); Alkaline Phosphatase 60 U/L (45-117); Anisocytosis 1+; Aspartate Amino Transferase 37 U/L (0-37); Band Neutrophils 2 % (0-10); Blood Urea Nitrogen 41 MG/DL (7-18); Calcium 8.3 MG/DL (8.5-10.1); Glucose 136 MG/DL (74-106); Lymphocytes 22 % (20-55); Metamyelocytes 1 %; Myelocytes 1 %; Nucleated Red Blood Cells 6 (0-5); Osmolality,Calculated 297.8 MOS/KG (273-304); Segmented Neutrophils 65 % (50-85); Sodium 144 MMOL/L (136-145); Total Cells Counted 100; Total Protein 6.3 G/DL (6.4-8.3)
[2017-10-08 18:41] LABS: Hypochromasia Slight; Platelet Estimate Adequate; Polychromasia Few; Target Cells Few
[2017-10-08 18:56] LABS: Apearance,Urine CLEAR (Clear); Bilirubin,Urine Negative (Negative); Blood, Urine Negative (Negative); Glucose,Urine (UA) Negative (Negative); Ketones,Urine 20 mg/dL (Negative); Nitrite,Urine Negative (Negative); Protein,Urine 30 MG/DL; RBC,Urine <1 /HPF (0-4); Squamous Epithelial Cell,Urine Occasional /HPF (0-10); Urine Color Yellow (Yellow); Urine Specific Gravity 1.013 (1.001-1.035); Urine Urobilinogen < 2.0 EU/DL (0.2-1.0); WBC,Urine 2 /HPF (0-6)
[2017-10-08 19:22] LABS: Sedimentation Rate-Westergren 68 MM/HR (0-30)
[2017-10-08] MEDS ORDERED: ALBUTEROL 2.5 MG/3 ML NEB RESP TX PRN (22:33)
[2017-10-08] MEDS ORDERED: [UNRECOGNIZED DRUG - OTHER] TOP PRN (22:33)
[2017-10-08] MEDS ORDERED: ONDANSETRON 4 MG/2 ML VIAL IV PRN (22:33)
[2017-10-08] MEDS ORDERED: DEXTROSE 50% 25 GM/50 ML VIAL IV PRN (22:33)
[2017-10-08] MEDS ORDERED: SODIUM CHLORIDE 0.9% 1,000 ML IV PRN (22:33)
[2017-10-08] MEDS ORDERED: TRIAMCINOLONE 0.1% CREAM 15 GM TUBE TOP PRN (22:33)
[2017-10-08] MEDS ORDERED: ACETAMINOPHEN 325 MG TABLET PO PRN (22:33)
[2017-10-08] MEDS ORDERED: GLUCAGON 1 MG VIAL IM PRN (22:33)
[2017-10-08] MEDS: TAMOXIFEN 10 MG TABLET PO SCH (23:12)
[2017-10-08] MEDS: SODIUM CHLORIDE 0.9% 1,000 ML IV SCH (23:13)
[2017-10-08] MEDS: INSULIN LISPRO 100 UNIT/ML SUBCUT SCH (23:13)
[2017-10-08] MEDS: INSULIN NPH/REGULAR 70/30 100 UNIT/ML SUBCUT SCH (23:15)
[2017-10-08 23:51] LABS: Thyroid Stimulating Hormone 2.21 uIU/ml (0.358-3.74)
[2017-10-09] MEDS: ALBUTEROL/IPRATROPIUM 3 ML NEB RESP TX SCH ×4 (00:09→19:27)
[2017-10-09] MEDS: LEVOFLOXACIN INJ 750 MG in PREMIX 1 EACH IV SCH (00:48)
[2017-10-09 01:15] LABS: Basophils # 0.1 10*3/uL (0.0-0.2); Basophils % 0.3 % (0.0-0.8); Eosinophils # 0.2 10*3/uL (0.0-0.87); Eosinophils % 0.9 % (0.00-10.9); Hematocrit 20.7 VOL% (35.7-47.0); Hemoglobin 6.8 GM/DL (12.0-16.0); Immature Granulocytes % 11.1 %; Immature Granulocytes Absolute 2.01 #; Lymphocytes # 2.7 10*3/uL (1.4-4.0); Lymphocytes % 14.9 % (21.3-54.2); Mean Corpuscular HGB Conc 32.9 GM/DL (32-36); Mean Corpuscular Hemoglobin 27 PG (27-34); Mean Corpuscular Volume 83.5 FL (87-102); Monocytes # 2.6 10*3/uL (0.11-0.8); Monocytes % 14.6 % (1.7-12.7); Neutrophils # 10.5 10*3/uL (1.4-7.4); Neutrophils % 58.2 % (38.7-73.9); Platelet Count 176 T/CUMM (130-400); Red Blood Count 2.48 MC/CUMM (3.8-5.5); Red Cell Distribution Width 18.2 % (9.3-17.3); White Blood Count 18.1 T/CUMM (4-12)
[2017-10-09 01:50] LABS: % Iron Saturation 8.9 % (18-50); Calcium 7.9 MG/DL (8.5-10.1); Ferritin 331.9 ng/ml (8-252); Osmolality,Calculated 293.1 MOS/KG (273-304)
[2017-10-09 02:31] LABS: Sedimentation Rate-Westergren 65 MM/HR (0-30)
[2017-10-09 02:34] LABS: Band Neutrophils 3 % (0-10); Eosinophils 1 % (0-10); Lymphocytes 18 % (20-55); Myelocytes 5 %; Nucleated Red Blood Cells 8 (0-5); Segmented Neutrophils 66 % (50-85); Total Cells Counted 100
[2017-10-09 02:37] LABS: Anisocytosis 1+; Microcytosis 1+; Platelet Estimate Normal; Polychromasia Few; Target Cells Few
[2017-10-09 02:38] LABS: Hypochromasia 1+
[2017-10-09 02:52] LABS: Folate 19.5 NG/ML (5.4-24.0); Vitamin B12 1961 PG/ML (211-911)
[2017-10-09] MEDS: INSULIN LISPRO 100 UNIT/ML SUBCUT SCH ×4 (08:39→21:20)
[2017-10-09] MEDS: INSULIN NPH/REGULAR 70/30 100 UNIT/ML SUBCUT SCH ×2 (08:59→22:10)
[2017-10-09] MEDS: DILTIAZEM CD 180 MG CAPSULE PO SCH (09:02)
[2017-10-09] MEDS: MULTIVITAMIN (CENTRUM) TABLET PO SCH (09:02)
[2017-10-09] MEDS: PANTOPRAZOLE 40 MG TABLET PO SCH (09:02)
[2017-10-09] MEDS: PIPERACILLIN/TAZOBACTAM 3,375 MG in SODIUM CHLORIDE 0.9% 100 ML IV SCH ×2 (11:58→19:58)
[2017-10-09] MEDS: SODIUM CHLORIDE 0.9% 1,000 ML IV SCH (12:00)
[2017-10-09 13:06] LABS: Hematocrit 31.4 VOL% (35.7-47.0); Hemoglobin 10.4 GM/DL (12.0-16.0)
[2017-10-09] MEDS: HYDROXYUREA 500 MG CAPSULE PO SCH (13:15)
[2017-10-09] MEDS: TAMOXIFEN 10 MG TABLET PO SCH (21:51)
[2017-10-10] MEDS: ALBUTEROL/IPRATROPIUM 3 ML NEB RESP TX SCH ×4 (00:22→19:25)
[2017-10-10] MEDS: GABAPENTIN 300 MG CAPSULE PO SCH ×3 (00:30→21:43)
[2017-10-10] MEDS: PIPERACILLIN/TAZOBACTAM 3,375 MG in SODIUM CHLORIDE 0.9% 100 ML IV SCH ×2 (03:52→15:00)
[2017-10-10] MEDS: SODIUM CHLORIDE 0.9% 1,000 ML IV SCH ×2 (05:31→20:30)
[2017-10-10] MEDS: INSULIN NPH/REGULAR 70/30 100 UNIT/ML SUBCUT SCH ×2 (07:00→21:43)
[2017-10-10 09:10] LABS: Basophils % 0.5 % (0.0-0.8); Eosinophils # 0.1 10*3/uL (0.0-0.87); Eosinophils % 1.6 % (0.00-10.9); Hematocrit 28.6 VOL% (35.7-47.0); Hemoglobin 9.5 GM/DL (12.0-16.0); Immature Granulocytes % 5.4 %; Immature Granulocytes Absolute 0.46 #; Lymphocytes # 0.9 10*3/uL (1.4-4.0); Mean Corpuscular HGB Conc 33.2 GM/DL (32-36); Mean Corpuscular Hemoglobin 28 PG (27-34); Mean Corpuscular Volume 83.6 FL (87-102); Mean Platelet Volume 11.9 FL (9.6-12.0); Monocytes # 1.1 10*3/uL (0.11-0.8); Monocytes % 12.6 % (1.7-12.7); NRBC # 0.45 10*3/uL; Neutrophils % 69.9 % (38.7-73.9); Platelet Count 155 T/CUMM (130-400); Red Blood Count 3.42 MC/CUMM (3.8-5.5); Red Cell Distribution Width 19.7 % (9.3-17.3); White Blood Count 8.6 T/CUMM (4-12)
[2017-10-10] MEDS: INSULIN LISPRO 100 UNIT/ML SUBCUT SCH ×4 (09:18→21:45)
[2017-10-10] MEDS: MULTIVITAMIN (CENTRUM) TABLET PO SCH (09:19)
[2017-10-10] MEDS: DILTIAZEM CD 180 MG CAPSULE PO SCH (09:19)
[2017-10-10] MEDS: PANTOPRAZOLE 40 MG TABLET PO SCH (09:20)
[2017-10-10] MEDS: HYDROXYUREA 500 MG CAPSULE PO SCH (09:20)
[2017-10-10 09:24] LABS: Calcium 8.1 MG/DL (8.5-10.1); Osmolality,Calculated 294.8 MOS/KG (273-304); Potassium 3.8 MMOL/L (3.5-5.1)
[2017-10-10 10:49] LABS: Eosinophils 2 % (0-10); Hypochromasia 1+; Lymphocytes 26 % (20-55); Microcytosis 1+; Nucleated Red Blood Cells 1 (0-5); Segmented Neutrophils 66 % (50-85); Total Cells Counted 100
[2017-10-10 10:50] LABS: Ovalocytes Slight; Platelet Estimate Adequate; Polychromasia Slight; Target Cells Slight
[2017-10-10] MEDS: TAMOXIFEN 10 MG TABLET PO SCH (21:43)
[2017-10-10] MEDS: CLOTRIMAZOLE 1% CREAM 15 GM TUBE TOP SCH (21:45)
[2017-10-10] MEDS: LEVOFLOXACIN INJ 750 MG in PREMIX 1 EACH IV SCH (23:52)
[2017-10-11] MEDS ORDERED: guaiFENesin 200 MG/10 ML UDCUP PO PRN (00:35)
[2017-10-11] MEDS: ALBUTEROL/IPRATROPIUM 3 ML NEB RESP TX SCH ×4 (00:43→19:44)
[2017-10-11] MEDS: PIPERACILLIN/TAZOBACTAM 3,375 MG in SODIUM CHLORIDE 0.9% 100 ML IV SCH ×4 (01:26→23:29)
[2017-10-11 06:52] LABS: Basophils % 0.3 % (0.0-0.8); Eosinophils # 0.1 10*3/uL (0.0-0.87); Eosinophils % 1.5 % (0.00-10.9); Hemoglobin 8.8 GM/DL (12.0-16.0); Immature Granulocytes Absolute 0.15 #; Lymphocytes # 0.8 10*3/uL (1.4-4.0); Lymphocytes % 11.2 % (21.3-54.2); Mean Corpuscular HGB Conc 32.6 GM/DL (32-36); Mean Corpuscular Hemoglobin 27 PG (27-34); Mean Corpuscular Volume 83.6 FL (87-102); Mean Platelet Volume 11.5 FL (9.6-12.0); Monocytes % 13.1 % (1.7-12.7); NRBC # 0.15 10*3/uL; Neutrophils # 5.3 10*3/uL (1.4-7.4); Neutrophils % 71.9 % (38.7-73.9); Platelet Count 150 T/CUMM (130-400); Red Blood Count 3.23 MC/CUMM (3.8-5.5); Red Cell Distribution Width 19.9 % (9.3-17.3); White Blood Count 7.4 T/CUMM (4-12)
[2017-10-11] MEDS: INSULIN NPH/REGULAR 70/30 100 UNIT/ML SUBCUT SCH ×2 (06:56→20:42)
[2017-10-11 07:10] LABS: Calcium 7.7 MG/DL (8.5-10.1); Osmolality,Calculated 288.3 MOS/KG (273-304); Potassium 4.1 MMOL/L (3.5-5.1)
[2017-10-11 07:19] LABS: Band Neutrophils 6 % (0-10); Lymphocytes 4 % (20-55); Platelet Estimate Adequate; Polychromasia 1+; Segmented Neutrophils 83 % (50-85); Target Cells Few; Total Cells Counted 100
[2017-10-11 07:20] LABS: Anisocytosis 2+; Poikilocytosis 1+
[2017-10-11] MEDS ORDERED: methylPREDNISolone SOD SUC 125 MG/2 ML VIAL IV ONE (10:01)
[2017-10-11 10:25] LABS: % Iron Saturation 32.9 % (18-50); Ferritin 305.9 ng/ml (8-252)
[2017-10-11] MEDS: HYDROXYUREA 500 MG CAPSULE PO SCH (12:08)
[2017-10-11] MEDS: MULTIVITAMIN (CENTRUM) TABLET PO SCH (12:08)
[2017-10-11] MEDS: GABAPENTIN 300 MG CAPSULE PO SCH ×2 (12:08→20:40)
[2017-10-11] MEDS: PANTOPRAZOLE 40 MG TABLET PO SCH (12:09)
[2017-10-11] MEDS: CLOTRIMAZOLE 1% CREAM 15 GM TUBE TOP SCH ×2 (12:09→20:43)
[2017-10-11] MEDS: DILTIAZEM CD 180 MG CAPSULE PO SCH ×2 (12:09→12:27)
[2017-10-11] MEDS: SODIUM CHLORIDE 0.9% 1,000 ML IV SCH (12:16)
[2017-10-11 12:56] LABS: ABG Base Excess 0.6 MMOL/L (-2.5-2.5); ABG HCO3 25.6 MMOL/L (20-26); ABG Oxygen Saturation 96.8 % (95-100); ABG PCO2 42.9 MM HG (35-48); ABG PH 7.394 (7.35-7.45); ABG PO2 101.4 MM HG (80-95); ABG TCO2 26.9 MMOL/L (23-27)
[2017-10-11] MEDS: MEROPENEM 500 MG in SYRINGE 1 EACH IV SCH (16:45)
[2017-10-11] MEDS: FLUTICASONE/SALMETEROL 250-50 DISKUS 14 DOSE INH SCH ×2 (16:46→20:41)
[2017-10-11] MEDS: MONTELUKAST 10 MG TABLET PO SCH (16:47)
[2017-10-11] MEDS: BENZONATATE 100 MG CAPSULE PO SCH ×2 (16:47→20:40)
[2017-10-11] MEDS: DORNASE ALFA 2.5 MG/2.5 ML VIAL RESP TX SCH (19:45)
[2017-10-11] MEDS: INSULIN LISPRO 100 UNIT/ML SUBCUT SCH ×3 (20:40→21:59)
[2017-10-11] MEDS: TAMOXIFEN 10 MG TABLET PO SCH (20:40)
[2017-10-12] MEDS: ALBUTEROL/IPRATROPIUM 3 ML NEB RESP TX SCH ×4 (02:26→19:49)
[2017-10-12] MEDS: MEROPENEM 500 MG in SYRINGE 1 EACH IV SCH ×2 (03:20→15:50)
[2017-10-12 05:57] LABS: Basophils % 0.2 % (0.0-0.8); Hematocrit 27.1 VOL% (35.7-47.0); Hemoglobin 9.1 GM/DL (12.0-16.0); Immature Granulocytes % 0.9 %; Immature Granulocytes Absolute 0.05 #; Lymphocytes # 0.5 10*3/uL (1.4-4.0); Lymphocytes % 8.4 % (21.3-54.2); Mean Corpuscular HGB Conc 33.6 GM/DL (32-36); Mean Corpuscular Hemoglobin 28 PG (27-34); Mean Corpuscular Volume 82.1 FL (87-102); Mean Platelet Volume 11.7 FL (9.6-12.0); Monocytes # 0.4 10*3/uL (0.11-0.8); Monocytes % 6.6 % (1.7-12.7); NRBC # 0.07 10*3/uL; Neutrophils # 4.5 10*3/uL (1.4-7.4); Neutrophils % 83.9 % (38.7-73.9); Platelet Count 181 T/CUMM (130-400); Red Cell Distribution Width 19.2 % (9.3-17.3); White Blood Count 5.3 T/CUMM (4-12)
[2017-10-12] MEDS: INSULIN NPH/REGULAR 70/30 100 UNIT/ML SUBCUT SCH ×2 (06:21→20:27)
[2017-10-12] MEDS: PIPERACILLIN/TAZOBACTAM 3,375 MG in SODIUM CHLORIDE 0.9% 100 ML IV SCH ×3 (06:26→23:29)
[2017-10-12 06:29] LABS: Calcium 7.8 MG/DL (8.5-10.1); Osmolality,Calculated 290.7 MOS/KG (273-304); Potassium 4.2 MMOL/L (3.5-5.1)
[2017-10-12] MEDS: DORNASE ALFA 2.5 MG/2.5 ML VIAL RESP TX SCH ×2 (07:49→19:50)
[2017-10-12] MEDS: INSULIN LISPRO 100 UNIT/ML SUBCUT SCH ×4 (11:12→20:28)
[2017-10-12] MEDS: CLOTRIMAZOLE 1% CREAM 15 GM TUBE TOP SCH ×2 (11:12→20:34)
[2017-10-12] MEDS: FLUTICASONE/SALMETEROL 250-50 DISKUS 14 DOSE INH SCH ×2 (11:12→20:25)
[2017-10-12] MEDS: GABAPENTIN 300 MG CAPSULE PO SCH ×2 (11:13→20:32)
[2017-10-12] MEDS: MONTELUKAST 10 MG TABLET PO SCH (11:14)
[2017-10-12] MEDS: BENZONATATE 100 MG CAPSULE PO SCH ×2 (11:14→20:27)
[2017-10-12] MEDS: DILTIAZEM CD 180 MG CAPSULE PO SCH (11:15)
[2017-10-12] MEDS: PANTOPRAZOLE 40 MG TABLET PO SCH (11:15)
[2017-10-12] MEDS: MULTIVITAMIN (CENTRUM) TABLET PO SCH (11:15)
[2017-10-12] MEDS: HYDROXYUREA 500 MG CAPSULE PO SCH (11:15)
[2017-10-12] MEDS: TAMOXIFEN 10 MG TABLET PO SCH (20:26)
[2017-10-12] MEDS: FERROUS SULFATE 325 MG TABLET PO SCH (20:26)
[2017-10-13] MEDS: ALBUTEROL/IPRATROPIUM 3 ML NEB RESP TX SCH ×4 (00:20→20:17)
[2017-10-13] MEDS: MEROPENEM 500 MG in SYRINGE 1 EACH IV SCH ×2 (03:49→15:33)
[2017-10-13] MEDS: INSULIN NPH/REGULAR 70/30 100 UNIT/ML SUBCUT SCH ×2 (06:39→20:41)
[2017-10-13] MEDS: PIPERACILLIN/TAZOBACTAM 3,375 MG in SODIUM CHLORIDE 0.9% 100 ML IV SCH ×3 (06:40→23:34)
[2017-10-13] MEDS: DORNASE ALFA 2.5 MG/2.5 ML VIAL RESP TX SCH ×2 (07:11→20:17)
[2017-10-13] MEDS: INSULIN LISPRO 100 UNIT/ML SUBCUT SCH ×4 (07:15→20:40)
[2017-10-13] MEDS: FLUTICASONE/SALMETEROL 250-50 DISKUS 14 DOSE INH SCH ×2 (09:08→20:41)
[2017-10-13] MEDS: DILTIAZEM CD 180 MG CAPSULE PO SCH (09:08)
[2017-10-13] MEDS: MULTIVITAMIN (CENTRUM) TABLET PO SCH (09:09)
[2017-10-13] MEDS: HYDROXYUREA 500 MG CAPSULE PO SCH (09:09)
[2017-10-13] MEDS: FERROUS SULFATE 325 MG TABLET PO SCH ×2 (09:09→20:39)
[2017-10-13] MEDS: BENZONATATE 100 MG CAPSULE PO SCH ×2 (09:10→20:40)
[2017-10-13] MEDS: CLOTRIMAZOLE 1% CREAM 15 GM TUBE TOP SCH ×2 (09:10→20:41)
[2017-10-13] MEDS: MONTELUKAST 10 MG TABLET PO SCH (09:10)
[2017-10-13] MEDS: PANTOPRAZOLE 40 MG TABLET PO SCH (09:10)
[2017-10-13] MEDS: GABAPENTIN 300 MG CAPSULE PO SCH ×2 (09:10→20:40)
[2017-10-13] MEDS: TAMOXIFEN 10 MG TABLET PO SCH (20:40)
[2017-10-14] MEDS: ALBUTEROL/IPRATROPIUM 3 ML NEB RESP TX SCH ×4 (00:22→19:35)
[2017-10-14] MEDS: MEROPENEM 500 MG in SYRINGE 1 EACH IV SCH ×2 (03:31→16:01)
[2017-10-14] MEDS: PIPERACILLIN/TAZOBACTAM 3,375 MG in SODIUM CHLORIDE 0.9% 100 ML IV SCH (06:05)
[2017-10-14] MEDS: INSULIN NPH/REGULAR 70/30 100 UNIT/ML SUBCUT SCH ×2 (06:08→21:27)
[2017-10-14] MEDS: INSULIN LISPRO 100 UNIT/ML SUBCUT SCH ×4 (07:09→21:27)
[2017-10-14] MEDS: DORNASE ALFA 2.5 MG/2.5 ML VIAL RESP TX SCH ×2 (07:25→19:35)
[2017-10-14] MEDS: DILTIAZEM CD 180 MG CAPSULE PO SCH (14:25)
[2017-10-14] MEDS: MULTIVITAMIN (CENTRUM) TABLET PO SCH (14:26)
[2017-10-14] MEDS: HYDROXYUREA 500 MG CAPSULE PO SCH (14:26)
[2017-10-14] MEDS: PANTOPRAZOLE 40 MG TABLET PO SCH (14:26)
[2017-10-14] MEDS: FERROUS SULFATE 325 MG TABLET PO SCH ×2 (14:26→21:26)
[2017-10-14] MEDS: GABAPENTIN 300 MG CAPSULE PO SCH ×2 (14:26→21:26)
[2017-10-14] MEDS: MONTELUKAST 10 MG TABLET PO SCH (14:27)
[2017-10-14] MEDS: BENZONATATE 100 MG CAPSULE PO SCH ×2 (14:27→21:26)
[2017-10-14] MEDS: CLOTRIMAZOLE 1% CREAM 15 GM TUBE TOP SCH ×2 (14:29→21:27)
[2017-10-14] MEDS: FLUTICASONE/SALMETEROL 250-50 DISKUS 14 DOSE INH SCH ×2 (14:29→21:27)
[2017-10-14] MEDS: ENOXAPARIN 30 MG/0.3 ML SYRINGE SUBCUT SCH (16:01)
[2017-10-14] MEDS: hydrALAZINE 25 MG TABLET PO SCH ×2 (16:01→21:26)
[2017-10-14] MEDS: METOCLOPRAMIDE 10 MG/2 ML VIAL IV SCH ×2 (16:12→21:32)
[2017-10-14 16:31] LABS: Variant 24.8 = Hb C %
[2017-10-14] MEDS: TAMOXIFEN 10 MG TABLET PO SCH (21:26)
[2017-10-15] MEDS: ALBUTEROL/IPRATROPIUM 3 ML NEB RESP TX SCH ×4 (01:13→12:44)
[2017-10-15] MEDS: MEROPENEM 500 MG in SYRINGE 1 EACH IV SCH (03:15)
[2017-10-15] MEDS: METOCLOPRAMIDE 10 MG/2 ML VIAL IV SCH ×3 (03:18→15:14)
[2017-10-15] MEDS: INSULIN NPH/REGULAR 70/30 100 UNIT/ML SUBCUT SCH (06:12)
[2017-10-15] MEDS: DORNASE ALFA 2.5 MG/2.5 ML VIAL RESP TX SCH (07:21)
[2017-10-15] MEDS: INSULIN LISPRO 100 UNIT/ML SUBCUT SCH ×3 (07:30→16:30)
[2017-10-15 07:35] LABS: Hemoglobin A1 (Alkaline) 71.3 % (96.5-98.5); Hemoglobin A2 (Alkaline) 3.9 % (1.5-3.5); Hemoglobin C (Alkaline) 24.8 %
[2017-10-15] MEDS: HYDROXYUREA 500 MG CAPSULE PO SCH (08:50)
[2017-10-15] MEDS: DILTIAZEM CD 180 MG CAPSULE PO SCH (08:50)
[2017-10-15] MEDS: MULTIVITAMIN (CENTRUM) TABLET PO SCH (08:50)
[2017-10-15] MEDS: PANTOPRAZOLE 40 MG TABLET PO SCH (08:51)
[2017-10-15] MEDS: FERROUS SULFATE 325 MG TABLET PO SCH (08:51)
[2017-10-15] MEDS: GABAPENTIN 300 MG CAPSULE PO SCH (08:51)
[2017-10-15] MEDS: hydrALAZINE 25 MG TABLET PO SCH ×2 (08:51→15:15)
[2017-10-15] MEDS: BENZONATATE 100 MG CAPSULE PO SCH (08:52)
[2017-10-15] MEDS: MONTELUKAST 10 MG TABLET PO SCH (08:52)
[2017-10-15] MEDS: CLOTRIMAZOLE 1% CREAM 15 GM TUBE TOP SCH (08:53)
[2017-10-15] MEDS: FLUTICASONE/SALMETEROL 250-50 DISKUS 14 DOSE INH SCH (08:53)
[2017-10-15] MEDS: cefTRIAXone 1,000 MG in SYRINGE 1 EACH IV SCH (15:10)
[2017-10-15] MEDS: ENOXAPARIN 30 MG/0.3 ML SYRINGE SUBCUT SCH (15:15)
[2017-10-15 16:35] VITALS: BP 194/92
== END 2017-10-15 16:45 | DRG 194 ==
LOC: EDUNIT# → EDBD → N.ED 15:57 → SUATTDRO 19:50 → N.EDINP 19:50 → N.3E 22:13
PROVIDERS: ADMIT Internal Medicine; ATTEND Internal Medicine

== ENCOUNTER 2018-06-16 05:11 | Inpatient (IN) ==
[2018-06-16] MEDS ORDERED: ceFAZolin 1,000 MG VIAL ONE (05:59)
[2018-06-16] MEDS ORDERED: VANCOMYCIN 1,000 MG VIAL ONE (05:59)
[2018-06-16] MEDS ORDERED: ceFAZolin 1,000 MG in SYRINGE 1 EACH IV ONE (06:00)
[2018-06-16] MEDS ORDERED: VANCOMYCIN INJ 1,000 MG in SODIUM CHLORIDE 0.9% 250 ML IV ONE (06:00)
[2018-06-16] MEDS ORDERED: MIDAZOLAM 2 MG/2 ML VIAL ONE (07:35)
[2018-06-16] MEDS ORDERED: ROPIVACAINE 0.5% 30 ML VIAL ONE (07:35)
[2018-06-16] MEDS ORDERED: LIDOCAINE 1% 5 ML VIAL ONE (07:35)
[2018-06-16] MEDS ORDERED: PHENYLEPHRINE 10 MG/1 ML VIAL IV ONE (08:54)
[2018-06-16] MEDS ORDERED: PHENYLEPHRINE DRIP 40 MG/250 ML PREMIX IV ONE (08:55)
[2018-06-16] MEDS ORDERED: TRANEXAMIC ACID 1,000 MG/10 ML VIAL ONE (10:11)
[2018-06-16] MEDS ORDERED: BISACODYL 10 MG SUPP RECTAL PRN (10:20)
[2018-06-16] MEDS ORDERED: LACTULOSE 20 GM/30 ML UDCUP PO PRN (10:20)
[2018-06-16] MEDS ORDERED: ONDANSETRON 4 MG/2 ML VIAL IV PRN ×2 (10:20→11:29)
[2018-06-16] MEDS ORDERED: MAGNESIUM HYDROXIDE SUSP 30 ML UDCUP PO PRN (10:20)
[2018-06-16] MEDS ORDERED: diphenhydrAMINE CAP 25 MG CAPSULE PO PRN (10:20)
[2018-06-16] MEDS ORDERED: MORPHINE 4 MG/1 ML VIAL IV PRN (10:20)
[2018-06-16] MEDS ORDERED: PROMETHAZINE 25 MG/1 ML VIAL IM PRN (10:20)
[2018-06-16] MEDS ORDERED: ACETAMINOPHEN 325 MG TABLET PO PRN (10:23)
[2018-06-16] MEDS ORDERED: PANTOPRAZOLE 40 MG TABLET PO PRN (10:23)
[2018-06-16] MEDS ORDERED: DOCUSATE SODIUM 100 MG CAPSULE PO PRN (10:23)
[2018-06-16] MEDS ORDERED: METHOCARBAMOL 750 MG TABLET PO PRN (10:23)
[2018-06-16] MEDS ORDERED: GLUCAGON 1 MG VIAL IM PRN (10:25)
[2018-06-16] MEDS ORDERED: DEXTROSE 50% 25 GM/50 ML SYRINGE IV PRN (10:25)
[2018-06-16] MEDS ORDERED: ALBUTEROL/IPRATROPIUM 3 ML NEB RESP TX ONE (10:46)
[2018-06-16] MEDS ORDERED: fentaNYL 100 MCG/2 ML VIAL ONE (10:59)
[2018-06-16] MEDS ORDERED: PROPOFOL 200 MG/20 ML VIAL IV ONE (10:59)
[2018-06-16] MEDS ORDERED: SEVOFLURANE 1 UNIT/15 MINUTE INH ONE (10:59)
[2018-06-16] MEDS ORDERED: ROCURONIUM 100 MG/10 ML VIAL IV ONE (11:00)
[2018-06-16] MEDS ORDERED: PHENYLEPHRINE 1 MG/10 ML SYRINGE IV ONE (11:00)
[2018-06-16] MEDS ORDERED: NEOSTIGMINE 10 MG/10 ML VIAL ONE (11:00)
[2018-06-16] MEDS ORDERED: ONDANSETRON 4 MG/2 ML VIAL ONE ×2 (11:00→11:04)
[2018-06-16] MEDS ORDERED: SUCCINYLCHOLINE 200 MG/10 ML VIAL ONE (11:00)
[2018-06-16] MEDS ORDERED: GLYCOPYRROLATE 0.4 MG/2 ML VIAL ONE (11:00)
[2018-06-16] MEDS ORDERED: HYDROmorphone 2 MG/1 ML VIAL ONE (11:03)
[2018-06-16] MEDS ORDERED: HYDROmorphone 2 MG/1 ML VIAL IV PRN (11:29)
[2018-06-16] MEDS: INSULIN REGULAR 100 UNIT/ML SUBCUT SCH ×3 (11:55→20:29)
[2018-06-16] MEDS: LACTATED RINGERS 1,000 ML IV SCH (11:55)
[2018-06-16] MEDS: ceFAZolin 2,000 MG in PREMIX 1 EACH IV SCH ×2 (15:09→22:22)
[2018-06-16] MEDS: hydrALAZINE 25 MG TABLET PO SCH ×2 (15:10→20:28)
[2018-06-16] MEDS: INSULIN NPH/REGULAR 70/30 100 UNIT/ML SUBCUT SCH (16:45)
[2018-06-16] MEDS: FUROSEMIDE 20 MG TABLET PO SCH (16:45)
[2018-06-16] MEDS: ALBUTEROL/IPRATROPIUM 3 ML NEB RESP TX SCH (19:24)
[2018-06-16] MEDS: GABAPENTIN 300 MG CAPSULE PO SCH (20:28)
[2018-06-16] MEDS: TAMOXIFEN 10 MG TABLET PO SCH (20:28)
[2018-06-16] MEDS: MORPHINE 4 MG/1 ML VIAL IV PRN (22:22)
[2018-06-17] MEDS: MORPHINE 4 MG/1 ML VIAL IV PRN (01:05)
[2018-06-17] MEDS: ALBUTEROL/IPRATROPIUM 3 ML NEB RESP TX SCH ×4 (01:29→20:09)
[2018-06-17] MEDS: LACTATED RINGERS 1,000 ML IV SCH (06:36)
[2018-06-17] MEDS: INSULIN REGULAR 100 UNIT/ML SUBCUT SCH ×4 (07:17→21:34)
[2018-06-17] MEDS: hydrALAZINE 25 MG TABLET PO SCH ×4 (10:09→21:35)
[2018-06-17] MEDS: HYDROXYUREA 500 MG CAPSULE PO SCH (10:09)
[2018-06-17] MEDS: MULTIVITAMIN (CENTRUM) TABLET PO SCH (10:09)
[2018-06-17] MEDS: DILTIAZEM CD 180 MG CAPSULE PO SCH (10:09)
[2018-06-17] MEDS: MELOXICAM 7.5 MG TABLET PO SCH (10:10)
[2018-06-17] MEDS: GABAPENTIN 300 MG CAPSULE PO SCH ×2 (10:10→21:33)
[2018-06-17] MEDS: metOLazone 2.5 MG TABLET PO SCH (10:10)
[2018-06-17] MEDS: FUROSEMIDE 40 MG TABLET PO SCH (10:10)
[2018-06-17] MEDS: ALLOPURINOL 300 MG TABLET PO SCH (10:11)
[2018-06-17] MEDS: INSULIN NPH/REGULAR 70/30 100 UNIT/ML SUBCUT SCH ×2 (10:25→17:12)
[2018-06-17] MEDS: FUROSEMIDE 20 MG TABLET PO SCH (16:32)
[2018-06-17] MEDS: TAMOXIFEN 10 MG TABLET PO SCH (21:32)
[2018-06-18] MEDS: ALBUTEROL/IPRATROPIUM 3 ML NEB RESP TX SCH ×3 (01:50→13:35)
[2018-06-18] MEDS: INSULIN REGULAR 100 UNIT/ML SUBCUT SCH ×2 (07:15→11:52)
[2018-06-18] MEDS: DILTIAZEM CD 180 MG CAPSULE PO SCH (09:18)
[2018-06-18] MEDS: hydrALAZINE 25 MG TABLET PO SCH ×2 (09:25→15:00)
[2018-06-18] MEDS: MULTIVITAMIN (CENTRUM) TABLET PO SCH (09:25)
[2018-06-18] MEDS: metOLazone 2.5 MG TABLET PO SCH (09:26)
[2018-06-18] MEDS: GABAPENTIN 300 MG CAPSULE PO SCH (09:26)
[2018-06-18] MEDS: HYDROXYUREA 500 MG CAPSULE PO SCH (09:26)
[2018-06-18] MEDS: FUROSEMIDE 40 MG TABLET PO SCH (09:26)
[2018-06-18] MEDS: MELOXICAM 7.5 MG TABLET PO SCH (09:26)
[2018-06-18] MEDS: ALLOPURINOL 300 MG TABLET PO SCH (09:26)
[2018-06-18 11:47] VITALS: BP 130/68
[2018-06-18] MEDS: INSULIN NPH/REGULAR 70/30 100 UNIT/ML SUBCUT SCH (11:51)
== END 2018-06-18 15:00 | disposition home health service (06) | DRG 483 ==
LOC: N.SDSINP 05:11 → N.3E 09:01
PROVIDERS: ADMIT Orthopaedic Surgery; ATTEND Orthopaedic Surgery

== ENCOUNTER 2021-11-14 11:01 | Inpatient (IN) ==
[2021-11-14] MEDS ORDERED: ASPIRIN 325 MG TABLET PO STA (11:23)
[2021-11-14 12:46] LABS: Basophils % 0.1 % (0.0-0.8); Hematocrit 36.5 VOL% (35.7-47.0); Hemoglobin 12.7 GM/DL (12.0-16.0); Immature Granulocytes % 0.6 %; Immature Granulocytes Absolute 0.13 #; Lymphocytes # 0.8 10*3/uL (1.4-4.0); Lymphocytes % 3.7 % (21.3-54.2); Mean Corpuscular HGB Conc 34.8 GM/DL (32-36); Mean Corpuscular Volume 76.8 FL (87-102); Mean Platelet Volume 10.5 FL (9.6-12.0); Monocytes # 1.4 10*3/uL (0.11-0.8); Monocytes % 6.7 % (1.7-12.7); Neutrophils % 88.9 % (38.7-73.9); Platelet Count 524 T/CUMM (130-400); Red Blood Count 4.75 MC/CUMM (3.8-5.5); Red Cell Distribution Width 16.1 % (9.3-17.3); White Blood Count 20.9 T/CUMM (4-12)
[2021-11-14 12:55] LABS: PT Patient Result 11.3 SECS (10.1-12.1)
[2021-11-14 13:19] LABS: Lymphocytes 7 % (20-55); Total Cells Counted 100
[2021-11-14 13:21] LABS: Anisocytosis Slight; Microcytosis Slight; Platelet Estimate Increased
[2021-11-14 13:22] LABS: Albumin 2.7 G/DL (3.4-5.0); Bilirubin,Total 1.2 MG/DL (0.20-1.00); Calcium 9.7 MG/DL (8.5-10.1); Osmolality,Calculated 278.1 MOS/KG (273-304); Potassium 5.2 MMOL/L (3.5-5.1); Total Protein 7.6 G/DL (6.4-8.2)
[2021-11-14] MEDS ORDERED: AZITHROMYCIN INJ 500 MG in SODIUM CHLORIDE 0.9% 250 ML IV STA (13:29)
[2021-11-14] MEDS ORDERED: ENOXAPARIN 100 MG/ML SYRINGE SUBCUT STA (13:29)
[2021-11-14] MEDS ORDERED: cefTRIAXone 1,000 MG in SODIUM CHLORIDE 0.9% 100 ML IV STA (13:29)
[2021-11-14] MEDS ORDERED: hydrALAZINE 20 MG/1 ML VIAL IV PRN (13:48)
[2021-11-14] MEDS ORDERED: DEXTROSE 50% 25 GM/50 ML VIAL IV PRN (13:48)
[2021-11-14] MEDS ORDERED: ALUMINUM/MAGNES/SIMETH MAX STR 30 ML UDCUP PO PRN (13:48)
[2021-11-14] MEDS ORDERED: SIMETHICONE CHEW 125 MG TABLET PO PRN (13:48)
[2021-11-14] MEDS ORDERED: GLUCAGON 1 MG VIAL IM PRN (13:48)
[2021-11-14] MEDS ORDERED: ONDANSETRON 4 MG/2 ML VIAL IV PRN (13:48)
[2021-11-14] MEDS ORDERED: SODIUM POLYSTYRENE SULFATE 15 GM/60 ML BOTTLE PO ONE (13:55)
[2021-11-14] MEDS ORDERED: DEXTROSE 10% 250 ML BAG IV PRN (14:30)
[2021-11-14] MEDS: SODIUM CHLORIDE 0.9% 1,000 ML IV SCH (15:00)
[2021-11-14 15:13] LABS: Calcium 9.6 MG/DL (8.5-10.1); Osmolality,Calculated 279.8 MOS/KG (273-304); Potassium 4.3 MMOL/L (3.5-5.1)
[2021-11-14] MEDS: hydrALAZINE 25 MG TABLET PO SCH ×2 (15:15→20:44)
[2021-11-14] MEDS: methylPREDNISolone SOD SUC 40 MG/1 ML VIAL IV SCH ×2 (15:18→23:15)
[2021-11-14] MEDS: INSULIN LISPRO 100 UNIT/ML SUBCUT SCH ×2 (17:40→23:15)
[2021-11-14] MEDS: ALBUTEROL/IPRATROPIUM 3 ML NEB RESP TX SCH (19:00)
[2021-11-14] MEDS: GABAPENTIN 300 MG CAPSULE PO SCH (20:44)
[2021-11-14] MEDS: INSULIN NPH/REG 70/30 100 UNIT/ML SUBCUT SCH (20:44)
[2021-11-14] MEDS: MUPIROCIN 2% OINT 22 GM TUBE TOP SCH (23:15)
[2021-11-15] MEDS: ALBUTEROL/IPRATROPIUM 3 ML NEB RESP TX SCH ×4 (00:06→19:34)
[2021-11-15 05:15] LABS: Basophils % 0.1 % (0.0-0.8); Hematocrit 33.4 VOL% (35.7-47.0); Hemoglobin 11.5 GM/DL (12.0-16.0); Immature Granulocytes % 0.9 %; Immature Granulocytes Absolute 0.14 #; Lymphocytes # 0.5 10*3/uL (1.4-4.0); Lymphocytes % 3.3 % (21.3-54.2); Mean Corpuscular HGB Conc 34.4 GM/DL (32-36); Mean Corpuscular Volume 76.4 FL (87-102); Mean Platelet Volume 10.9 FL (9.6-12.0); Monocytes # 0.5 10*3/uL (0.11-0.8); Monocytes % 2.9 % (1.7-12.7); Neutrophils % 92.8 % (38.7-73.9); Platelet Count 468 T/CUMM (130-400); Red Blood Count 4.37 MC/CUMM (3.8-5.5); Red Cell Distribution Width 15.8 % (9.3-17.3); White Blood Count 16.3 T/CUMM (4-12)
[2021-11-15 05:41] LABS: Hypochromia 1+; Lymphocytes 4 % (20-55); Microcytosis 1+; Platelet Estimate Adequate; Total Cells Counted 100
[2021-11-15 05:42] LABS: Albumin 2.4 G/DL (3.4-5.0); Bilirubin,Total 0.5 MG/DL (0.20-1.00); Calcium 9.4 MG/DL (8.5-10.1); Osmolality,Calculated 286.5 MOS/KG (273-304); Potassium 3.5 MMOL/L (3.5-5.1); Risk Ratio 2.3; Thyroid Stimulating Hormone 0.861 uIU/ml (0.358-3.74); Total Protein 7.2 G/DL (6.4-8.2); VLDL Cholesterol 7.4 MG/DL
[2021-11-15] MEDS: methylPREDNISolone SOD SUC 40 MG/1 ML VIAL IV SCH ×3 (06:40→20:59)
[2021-11-15] MEDS: ENOXAPARIN 40 MG/0.4 ML SYRINGE SUBCUT SCH (08:57)
[2021-11-15] MEDS: INSULIN LISPRO 100 UNIT/ML SUBCUT SCH ×4 (08:57→20:58)
[2021-11-15] MEDS: INSULIN NPH/REG 70/30 100 UNIT/ML SUBCUT SCH ×2 (08:57→20:58)
[2021-11-15] MEDS: TAMOXIFEN 10 MG TABLET PO SCH (08:58)
[2021-11-15] MEDS: allopurinoL 300 MG TABLET PO SCH (08:58)
[2021-11-15] MEDS: GABAPENTIN 300 MG CAPSULE PO SCH ×2 (08:58→20:59)
[2021-11-15] MEDS: MULTIVITAMIN (CENTRUM) TABLET PO SCH (08:58)
[2021-11-15] MEDS: hydrALAZINE 25 MG TABLET PO SCH (08:59)
[2021-11-15] MEDS: PANTOPRAZOLE 40 MG TABLET PO SCH (08:59)
[2021-11-15] MEDS: DILTIAZEM CD 120 MG CAPSULE PO SCH (08:59)
[2021-11-15] MEDS: MUPIROCIN 2% OINT 22 GM TUBE TOP SCH ×3 (09:00→21:05)
[2021-11-15] MEDS: SODIUM CHLORIDE 0.9% 1,000 ML IV SCH (22:12)
[2021-11-16] MEDS: ALBUTEROL/IPRATROPIUM 3 ML NEB RESP TX SCH ×4 (02:46→19:10)
[2021-11-16 05:12] LABS: Basophils % 0.1 % (0.0-0.8); Immature Granulocytes % 0.8 %; Immature Granulocytes Absolute 0.16 #; Lymphocytes # 0.6 10*3/uL (1.4-4.0); Lymphocytes % 3.3 % (21.3-54.2); Mean Corpuscular HGB Conc 34.4 GM/DL (32-36); Mean Corpuscular Volume 76.6 FL (87-102); Mean Platelet Volume 10.6 FL (9.6-12.0); Monocytes # 0.5 10*3/uL (0.11-0.8); Monocytes % 2.7 % (1.7-12.7); NRBC # 0.03 10*3/uL; Neutrophils % 93.1 % (38.7-73.9); Platelet Count 457 T/CUMM (130-400); Red Blood Count 4.18 MC/CUMM (3.8-5.5); Red Cell Distribution Width 15.9 % (9.3-17.3); White Blood Count 19.3 T/CUMM (4-12)
[2021-11-16] MEDS: methylPREDNISolone SOD SUC 40 MG/1 ML VIAL IV SCH ×2 (05:25→21:27)
[2021-11-16 05:29] LABS: Calcium 8.7 MG/DL (8.5-10.1); Osmolality,Calculated 290.4 MOS/KG (273-304); Potassium 3.5 MMOL/L (3.5-5.1)
[2021-11-16 06:08] LABS: Lymphocytes 1 % (20-55); Platelet Estimate Increased; Target Cells Slight; Total Cells Counted 100
[2021-11-16] MEDS: INSULIN LISPRO 100 UNIT/ML SUBCUT SCH ×4 (09:07→21:27)
[2021-11-16] MEDS: MULTIVITAMIN (CENTRUM) TABLET PO SCH (09:27)
[2021-11-16] MEDS: allopurinoL 300 MG TABLET PO SCH (09:27)
[2021-11-16] MEDS: DILTIAZEM CD 120 MG CAPSULE PO SCH (09:27)
[2021-11-16] MEDS: GABAPENTIN 300 MG CAPSULE PO SCH ×2 (09:27→21:27)
[2021-11-16] MEDS: INSULIN NPH/REG 70/30 100 UNIT/ML SUBCUT SCH ×2 (09:27→21:27)
[2021-11-16] MEDS: TAMOXIFEN 10 MG TABLET PO SCH (09:27)
[2021-11-16] MEDS: MUPIROCIN 2% OINT 22 GM TUBE TOP SCH ×3 (09:27→21:26)
[2021-11-16] MEDS: PANTOPRAZOLE 40 MG TABLET PO SCH (09:27)
[2021-11-16] MEDS: ENOXAPARIN 40 MG/0.4 ML SYRINGE SUBCUT SCH (09:27)
[2021-11-16] MEDS: SODIUM CHLORIDE 0.9% 1,000 ML IV SCH (10:30)
[2021-11-16] MEDS: ACETAMINOPHEN 325 MG TABLET PO PRN (21:28)
[2021-11-17] MEDS: ALBUTEROL/IPRATROPIUM 3 ML NEB RESP TX SCH ×4 (00:20→19:45)
[2021-11-17 05:07] LABS: Basophils % 0.1 % (0.0-0.8); Hematocrit 31.3 VOL% (35.7-47.0); Hemoglobin 10.7 GM/DL (12.0-16.0); Immature Granulocytes % 1.1 %; Immature Granulocytes Absolute 0.18 #; Lymphocytes # 0.5 10*3/uL (1.4-4.0); Lymphocytes % 3.2 % (21.3-54.2); Mean Corpuscular HGB Conc 34.2 GM/DL (32-36); Mean Corpuscular Volume 76.7 FL (87-102); Mean Platelet Volume 10.1 FL (9.6-12.0); Monocytes # 0.3 10*3/uL (0.11-0.8); NRBC # 0.04 10*3/uL; Neutrophils % 93.6 % (38.7-73.9); Platelet Count 487 T/CUMM (130-400); Red Blood Count 4.08 MC/CUMM (3.8-5.5); White Blood Count 16.7 T/CUMM (4-12)
[2021-11-17 05:36] LABS: Calcium 8.7 MG/DL (8.5-10.1); Osmolality,Calculated 289.7 MOS/KG (273-304); Potassium 3.8 MMOL/L (3.5-5.1)
[2021-11-17 05:41] LABS: Lymphocytes 6 % (20-55); Total Cells Counted 100
[2021-11-17 05:42] LABS: Hypochromia 1+; Microcytosis 1+; Platelet Estimate Increased; Target Cells Slight
[2021-11-17] MEDS: SODIUM CHLORIDE 0.9% 1,000 ML IV SCH (07:07)
[2021-11-17] MEDS: cefTRIAXone 1,000 MG in SODIUM CHLORIDE 0.9% 100 ML IV SCH (09:09)
[2021-11-17] MEDS: ENOXAPARIN 30 MG/0.3 ML SYRINGE SUBCUT SCH (09:11)
[2021-11-17] MEDS: allopurinoL 300 MG TABLET PO SCH (09:12)
[2021-11-17] MEDS: TAMOXIFEN 10 MG TABLET PO SCH (09:12)
[2021-11-17] MEDS: DILTIAZEM CD 120 MG CAPSULE PO SCH (09:13)
[2021-11-17] MEDS: GABAPENTIN 300 MG CAPSULE PO SCH ×2 (09:13→21:29)
[2021-11-17] MEDS: INSULIN NPH/REG 70/30 100 UNIT/ML SUBCUT SCH ×2 (09:16→21:28)
[2021-11-17] MEDS: INSULIN LISPRO 100 UNIT/ML SUBCUT SCH ×4 (09:17→21:28)
[2021-11-17] MEDS: methylPREDNISolone SOD SUC 40 MG/1 ML VIAL IV SCH ×2 (09:18→21:29)
[2021-11-17] MEDS: MUPIROCIN 2% OINT 22 GM TUBE TOP SCH ×3 (09:19→21:28)
[2021-11-17] MEDS: PANTOPRAZOLE 40 MG TABLET PO SCH (09:22)
[2021-11-17] MEDS: MULTIVITAMIN (CENTRUM) TABLET PO SCH (09:22)
[2021-11-17] MEDS: AZITHROMYCIN INJ 500 MG in SODIUM CHLORIDE 0.9% 250 ML IV SCH (10:13)
[2021-11-18] MEDS: ALBUTEROL/IPRATROPIUM 3 ML NEB RESP TX SCH ×4 (00:40→19:29)
[2021-11-18] MEDS: SODIUM CHLORIDE 0.9% 1,000 ML IV SCH (04:52)
[2021-11-18 06:04] LABS: Basophils % 0.2 % (0.0-0.8); Hematocrit 28.5 VOL% (35.7-47.0); Hemoglobin 9.8 GM/DL (12.0-16.0); Immature Granulocytes % 2.7 %; Immature Granulocytes Absolute 0.35 #; Lymphocytes # 0.5 10*3/uL (1.4-4.0); Lymphocytes % 4.1 % (21.3-54.2); Mean Corpuscular HGB Conc 34.4 GM/DL (32-36); Mean Corpuscular Volume 76.2 FL (87-102); Mean Platelet Volume 10.7 FL (9.6-12.0); Monocytes # 0.5 10*3/uL (0.11-0.8); Monocytes % 4.2 % (1.7-12.7); NRBC # 0.05 10*3/uL; Neutrophils % 88.8 % (38.7-73.9); Platelet Count 512 T/CUMM (130-400); Red Blood Count 3.74 MC/CUMM (3.8-5.5); White Blood Count 12.9 T/CUMM (4-12)
[2021-11-18 06:23] LABS: Calcium 8.3 MG/DL (8.5-10.1); Osmolality,Calculated 302.1 MOS/KG (273-304)
[2021-11-18 06:29] LABS: Hypochromia Slight; Lymphocytes 5 % (20-55); Microcytosis Slight; Platelet Estimate Adequate; Total Cells Counted 100
[2021-11-18 06:30] LABS: Target Cells Slight
[2021-11-18] MEDS: INSULIN LISPRO 100 UNIT/ML SUBCUT SCH ×4 (08:24→20:50)
[2021-11-18] MEDS: cefTRIAXone 1,000 MG in SODIUM CHLORIDE 0.9% 100 ML IV SCH (09:20)
[2021-11-18] MEDS: TAMOXIFEN 10 MG TABLET PO SCH (09:22)
[2021-11-18] MEDS: methylPREDNISolone SOD SUC 40 MG/1 ML VIAL IV SCH ×2 (09:22→20:50)
[2021-11-18] MEDS: MULTIVITAMIN (CENTRUM) TABLET PO SCH (09:23)
[2021-11-18] MEDS: allopurinoL 300 MG TABLET PO SCH (09:23)
[2021-11-18] MEDS: ENOXAPARIN 30 MG/0.3 ML SYRINGE SUBCUT SCH (09:23)
[2021-11-18] MEDS: DILTIAZEM CD 120 MG CAPSULE PO SCH (09:24)
[2021-11-18] MEDS: GABAPENTIN 300 MG CAPSULE PO SCH ×2 (09:24→20:50)
[2021-11-18] MEDS: MUPIROCIN 2% OINT 22 GM TUBE TOP SCH ×3 (09:26→20:49)
[2021-11-18] MEDS: INSULIN NPH/REG 70/30 100 UNIT/ML SUBCUT SCH ×2 (09:26→20:50)
[2021-11-18] MEDS: PANTOPRAZOLE 40 MG TABLET PO SCH (09:31)
[2021-11-18] MEDS: AZITHROMYCIN INJ 500 MG in SODIUM CHLORIDE 0.9% 250 ML IV SCH (10:28)
[2021-11-18] MEDS: ACETAMINOPHEN 325 MG TABLET PO PRN (21:04)
[2021-11-19] MEDS: ALBUTEROL/IPRATROPIUM 3 ML NEB RESP TX SCH ×5 (00:25→23:26)
[2021-11-19 06:13] LABS: Basophils % 0.3 % (0.0-0.8); Hematocrit 28.2 VOL% (35.7-47.0); Hemoglobin 9.7 GM/DL (12.0-16.0); Immature Granulocytes % 2.8 %; Immature Granulocytes Absolute 0.39 #; Lymphocytes # 0.5 10*3/uL (1.4-4.0); Lymphocytes % 3.9 % (21.3-54.2); Mean Corpuscular HGB Conc 34.4 GM/DL (32-36); Mean Corpuscular Volume 76.4 FL (87-102); Monocytes # 0.4 10*3/uL (0.11-0.8); Monocytes % 3.1 % (1.7-12.7); NRBC # 0.06 10*3/uL; Neutrophils % 89.9 % (38.7-73.9); Platelet Count 540 T/CUMM (130-400); Red Blood Count 3.69 MC/CUMM (3.8-5.5); Red Cell Distribution Width 16.3 % (9.3-17.3)
[2021-11-19 06:27] LABS: Calcium 8.1 MG/DL (8.5-10.1); Osmolality,Calculated 306.1 MOS/KG (273-304); Potassium 4.6 MMOL/L (3.5-5.1)
[2021-11-19 06:43] LABS: Hypochromia Slight; Lymphocytes 4 % (20-55); Microcytosis Slight; Target Cells Few; Total Cells Counted 100
[2021-11-19 06:44] LABS: Ovalocytes Slight; Platelet Estimate Increased
[2021-11-19] MEDS: TAMOXIFEN 10 MG TABLET PO SCH (09:35)
[2021-11-19] MEDS: MULTIVITAMIN (CENTRUM) TABLET PO SCH (09:36)
[2021-11-19] MEDS: PANTOPRAZOLE 40 MG TABLET PO SCH (09:36)
[2021-11-19] MEDS: allopurinoL 300 MG TABLET PO SCH (09:36)
[2021-11-19] MEDS: DILTIAZEM CD 120 MG CAPSULE PO SCH (09:36)
[2021-11-19] MEDS: cefTRIAXone 1,000 MG in SODIUM CHLORIDE 0.9% 100 ML IV SCH (09:37)
[2021-11-19] MEDS: GABAPENTIN 300 MG CAPSULE PO SCH ×2 (09:37→21:26)
[2021-11-19] MEDS: DOCUSATE SODIUM 100 MG CAPSULE PO PRN (09:37)
[2021-11-19] MEDS: AZITHROMYCIN INJ 500 MG in SODIUM CHLORIDE 0.9% 250 ML IV SCH (09:38)
[2021-11-19] MEDS: ENOXAPARIN 30 MG/0.3 ML SYRINGE SUBCUT SCH (09:38)
[2021-11-19] MEDS: MUPIROCIN 2% OINT 22 GM TUBE TOP SCH ×3 (09:39→22:33)
[2021-11-19] MEDS: INSULIN LISPRO 100 UNIT/ML SUBCUT SCH ×4 (09:40→21:25)
[2021-11-19] MEDS: INSULIN NPH/REG 70/30 100 UNIT/ML SUBCUT SCH ×2 (09:40→22:58)
[2021-11-19] MEDS: SODIUM BICARB INJ 50 MEQ in SODIUM CHLORIDE 0.45% 1,000 ML IV SCH (17:44)
[2021-11-20] MEDS: ALBUTEROL/IPRATROPIUM 3 ML NEB RESP TX SCH ×6 (03:00→23:18)
[2021-11-20 05:05] LABS: Basophils # 0.1 10*3/uL (0.0-0.2); Basophils % 0.4 % (0.0-0.8); Hematocrit 27.4 VOL% (35.7-47.0); Hemoglobin 9.5 GM/DL (12.0-16.0); Immature Granulocytes % 4.3 %; Immature Granulocytes Absolute 0.79 #; Lymphocytes # 1.1 10*3/uL (1.4-4.0); Lymphocytes % 5.9 % (21.3-54.2); Mean Corpuscular HGB Conc 34.7 GM/DL (32-36); Mean Platelet Volume 10.6 FL (9.6-12.0); Monocytes # 1.4 10*3/uL (0.11-0.8); Monocytes % 7.4 % (1.7-12.7); Platelet Count 521 T/CUMM (130-400); Red Blood Count 3.56 MC/CUMM (3.8-5.5); Red Cell Distribution Width 16.6 % (9.3-17.3); White Blood Count 18.4 T/CUMM (4-12)
[2021-11-20 05:26] LABS: Calcium 8.5 MG/DL (8.5-10.1); Osmolality,Calculated 302.5 MOS/KG (273-304); Potassium 4.5 MMOL/L (3.5-5.1)
[2021-11-20 05:30] LABS: Band Neutrophils 2 % (0-10); Lymphocytes 11 % (20-55); Total Cells Counted 100
[2021-11-20 05:31] LABS: Hypochromia 1+; Microcytosis Slight; Target Cells Few
[2021-11-20 05:32] LABS: Ovalocytes Slight; Platelet Estimate Increased
[2021-11-20] MEDS: INSULIN LISPRO 100 UNIT/ML SUBCUT SCH ×4 (07:43→21:57)
[2021-11-20] MEDS: AZITHROMYCIN INJ 500 MG in SODIUM CHLORIDE 0.9% 250 ML IV SCH (09:24)
[2021-11-20] MEDS: ENOXAPARIN 30 MG/0.3 ML SYRINGE SUBCUT SCH (09:27)
[2021-11-20] MEDS: MULTIVITAMIN (CENTRUM) TABLET PO SCH (09:28)
[2021-11-20] MEDS: PANTOPRAZOLE 40 MG TABLET PO SCH (09:28)
[2021-11-20] MEDS: DILTIAZEM CD 120 MG CAPSULE PO SCH (09:28)
[2021-11-20] MEDS: allopurinoL 300 MG TABLET PO SCH (09:28)
[2021-11-20] MEDS: TAMOXIFEN 10 MG TABLET PO SCH (09:29)
[2021-11-20] MEDS: GABAPENTIN 300 MG CAPSULE PO SCH ×2 (09:29→21:57)
[2021-11-20] MEDS: MUPIROCIN 2% OINT 22 GM TUBE TOP SCH ×3 (09:42→21:57)
[2021-11-20] MEDS: INSULIN NPH/REG 70/30 100 UNIT/ML SUBCUT SCH ×2 (09:42→21:56)
[2021-11-20] MEDS ORDERED: DOXYCYCLINE HYCLATE 100 MG CAPSULE PO SCH (13:30)
[2021-11-20] MEDS: SODIUM BICARB INJ 50 MEQ in SODIUM CHLORIDE 0.45% 1,000 ML IV SCH (14:38)
[2021-11-20] MEDS: ACETAMINOPHEN 325 MG TABLET PO PRN (21:57)
[2021-11-21] MEDS: ALBUTEROL/IPRATROPIUM 3 ML NEB RESP TX SCH ×6 (02:52→23:35)
[2021-11-21 05:24] LABS: Basophils # 0.1 10*3/uL (0.0-0.2); Basophils % 0.5 % (0.0-0.8); Eosinophils # 0.1 10*3/uL (0.0-0.87); Eosinophils % 0.4 % (0.00-10.9); Hematocrit 28.6 VOL% (35.7-47.0); Hemoglobin 9.8 GM/DL (12.0-16.0); Immature Granulocytes % 4.5 %; Immature Granulocytes Absolute 0.99 #; Lymphocytes # 1.2 10*3/uL (1.4-4.0); Lymphocytes % 5.5 % (21.3-54.2); Mean Corpuscular HGB Conc 34.3 GM/DL (32-36); Mean Corpuscular Volume 76.3 FL (87-102); Mean Platelet Volume 9.9 FL (9.6-12.0); Monocytes # 1.5 10*3/uL (0.11-0.8); Monocytes % 6.8 % (1.7-12.7); NRBC # 0.21 10*3/uL; Neutrophils % 82.3 % (38.7-73.9); Platelet Count 558 T/CUMM (130-400); Red Blood Count 3.75 MC/CUMM (3.8-5.5); Red Cell Distribution Width 16.7 % (9.3-17.3); White Blood Count 22.1 T/CUMM (4-12)
[2021-11-21 05:44] LABS: Calcium 8.5 MG/DL (8.5-10.1); Osmolality,Calculated 300.7 MOS/KG (273-304); Potassium 4.3 MMOL/L (3.5-5.1)
[2021-11-21 05:47] LABS: Lymphocytes 9 % (20-55); Metamyelocytes 1 %; Nucleated Red Blood Cells 1 /100 WBC (0-5); Total Cells Counted 100
[2021-11-21 05:48] LABS: Hypochromia 1+; Target Cells Few
[2021-11-21 05:49] LABS: Microcytosis Slight; Platelet Estimate Increased
[2021-11-21] MEDS: INSULIN LISPRO 100 UNIT/ML SUBCUT SCH ×4 (10:42→21:31)
[2021-11-21] MEDS: INSULIN NPH/REG 70/30 100 UNIT/ML SUBCUT SCH ×2 (12:11→21:31)
[2021-11-21] MEDS ORDERED: cefTRIAXone 1,000 MG in SODIUM CHLORIDE 0.9% 100 ML IV SCH (15:00)
[2021-11-21] MEDS: ENOXAPARIN 30 MG/0.3 ML SYRINGE SUBCUT SCH (15:59)
[2021-11-21] MEDS: ACETAMINOPHEN 325 MG TABLET PO PRN ×2 (16:00→21:30)
[2021-11-21] MEDS: MULTIVITAMIN (CENTRUM) TABLET PO SCH (16:01)
[2021-11-21] MEDS: DILTIAZEM CD 120 MG CAPSULE PO SCH (16:01)
[2021-11-21] MEDS: GABAPENTIN 300 MG CAPSULE PO SCH ×2 (16:02→21:30)
[2021-11-21] MEDS: TAMOXIFEN 10 MG TABLET PO SCH (16:02)
[2021-11-21] MEDS: allopurinoL 300 MG TABLET PO SCH (16:02)
[2021-11-21] MEDS: PANTOPRAZOLE 40 MG TABLET PO SCH (16:02)
[2021-11-21] MEDS: MUPIROCIN 2% OINT 22 GM TUBE TOP SCH ×3 (16:08→21:31)
[2021-11-21] MEDS: SODIUM BICARB INJ 50 MEQ in SODIUM CHLORIDE 0.45% 1,000 ML IV SCH (17:16)
[2021-11-21] MEDS ORDERED: SODIUM BICARBONATE 650 MG TABLET PO SCH (21:00)
[2021-11-21] MEDS ORDERED: AZITHROMYCIN INJ 500 MG in SODIUM CHLORIDE 0.9% 250 ML IV SCH (21:00)
[2021-11-21] MEDS: AMOXICILLIN/CLAV 500 MG TABLET PO SCH (21:30)
[2021-11-21] MEDS: DOCUSATE SODIUM 100 MG CAPSULE PO PRN (21:30)
[2021-11-22] MEDS: ALBUTEROL/IPRATROPIUM 3 ML NEB RESP TX SCH ×6 (03:40→23:40)
[2021-11-22 05:16] LABS: Basophils # 0.1 10*3/uL (0.0-0.2); Basophils % 0.3 % (0.0-0.8); Eosinophils # 0.2 10*3/uL (0.0-0.87); Eosinophils % 0.7 % (0.00-10.9); Hematocrit 26.8 VOL% (35.7-47.0); Hemoglobin 9.2 GM/DL (12.0-16.0); Immature Granulocytes % 4.5 %; Immature Granulocytes Absolute 0.94 #; Lymphocytes # 0.9 10*3/uL (1.4-4.0); Lymphocytes % 4.4 % (21.3-54.2); Mean Corpuscular HGB Conc 34.3 GM/DL (32-36); Mean Corpuscular Volume 76.4 FL (87-102); Mean Platelet Volume 10.7 FL (9.6-12.0); Monocytes # 1.3 10*3/uL (0.11-0.8); Monocytes % 6.4 % (1.7-12.7); NRBC # 0.15 10*3/uL; Neutrophils % 83.7 % (38.7-73.9); Platelet Count 541 T/CUMM (130-400); Red Blood Count 3.51 MC/CUMM (3.8-5.5); Red Cell Distribution Width 16.9 % (9.3-17.3); White Blood Count 21.1 T/CUMM (4-12)
[2021-11-22 05:32] LABS: Calcium 8.7 MG/DL (8.5-10.1)
[2021-11-22 05:53] LABS: Lymphocytes 3 % (20-55); Nucleated Red Blood Cells 3 /100 WBC (0-5); Total Cells Counted 100
[2021-11-22 05:54] LABS: Hypochromia Slight; Microcytosis Slight; Platelet Estimate Adequate
[2021-11-22] MEDS: MULTIVITAMIN (CENTRUM) TABLET PO SCH (12:14)
[2021-11-22] MEDS: ENOXAPARIN 30 MG/0.3 ML SYRINGE SUBCUT SCH (12:14)
[2021-11-22] MEDS: GABAPENTIN 300 MG CAPSULE PO SCH ×2 (12:14→21:56)
[2021-11-22] MEDS: TAMOXIFEN 10 MG TABLET PO SCH (12:14)
[2021-11-22] MEDS: PANTOPRAZOLE 40 MG TABLET PO SCH (12:15)
[2021-11-22] MEDS: DILTIAZEM CD 120 MG CAPSULE PO SCH (12:15)
[2021-11-22] MEDS: AMOXICILLIN/CLAV 500 MG TABLET PO SCH ×2 (12:15→21:56)
[2021-11-22] MEDS: MUPIROCIN 2% OINT 22 GM TUBE TOP SCH ×3 (12:15→21:57)
[2021-11-22] MEDS: SODIUM BICARB INJ 50 MEQ in SODIUM CHLORIDE 0.45% 1,000 ML IV SCH (15:01)
[2021-11-22] MEDS: allopurinoL 300 MG TABLET PO SCH (15:02)
[2021-11-22] MEDS: INSULIN LISPRO 100 UNIT/ML SUBCUT SCH ×4 (15:04→21:50)
[2021-11-22] MEDS: INSULIN NPH/REG 70/30 100 UNIT/ML SUBCUT SCH ×2 (15:06→21:50)
[2021-11-23] MEDS: ALBUTEROL/IPRATROPIUM 3 ML NEB RESP TX SCH ×6 (03:30→23:15)
[2021-11-23 05:13] LABS: Basophils # 0.1 10*3/uL (0.0-0.2); Basophils % 0.4 % (0.0-0.8); Eosinophils # 0.1 10*3/uL (0.0-0.87); Eosinophils % 0.5 % (0.00-10.9); Hematocrit 26.5 VOL% (35.7-47.0); Hemoglobin 9.4 GM/DL (12.0-16.0); Immature Granulocytes % 5.4 %; Immature Granulocytes Absolute 1.27 #; Lymphocytes # 0.8 10*3/uL (1.4-4.0); Lymphocytes % 3.3 % (21.3-54.2); Mean Corpuscular HGB Conc 35.5 GM/DL (32-36); Mean Corpuscular Volume 74.9 FL (87-102); Monocytes # 1.5 10*3/uL (0.11-0.8); Monocytes % 6.3 % (1.7-12.7); NRBC # 0.18 10*3/uL; Neutrophils % 84.1 % (38.7-73.9); Platelet Count 537 T/CUMM (130-400); Red Blood Count 3.54 MC/CUMM (3.8-5.5); Red Cell Distribution Width 16.3 % (9.3-17.3); White Blood Count 23.5 T/CUMM (4-12)
[2021-11-23 05:34] LABS: Calcium 8.7 MG/DL (8.5-10.1); Osmolality,Calculated 298.7 MOS/KG (273-304); Potassium 4.4 MMOL/L (3.5-5.1)
[2021-11-23 05:53] LABS: Hypochromia Slight; Lymphocytes 5 % (20-55); Nucleated Red Blood Cells 2 /100 WBC (0-5); Target Cells Few; Total Cells Counted 100
[2021-11-23 05:54] LABS: Anisocytosis 1+; Microcytosis 1+; Polychromasia Slight
[2021-11-23 05:55] LABS: Ovalocytes Slight
[2021-11-23] MEDS: ENOXAPARIN 30 MG/0.3 ML SYRINGE SUBCUT SCH (09:59)
[2021-11-23] MEDS: INSULIN NPH/REG 70/30 100 UNIT/ML SUBCUT SCH ×2 (09:59→21:50)
[2021-11-23] MEDS: INSULIN LISPRO 100 UNIT/ML SUBCUT SCH ×4 (10:00→21:50)
[2021-11-23] MEDS: TAMOXIFEN 10 MG TABLET PO SCH (10:01)
[2021-11-23] MEDS: allopurinoL 300 MG TABLET PO SCH (10:01)
[2021-11-23] MEDS: MULTIVITAMIN (CENTRUM) TABLET PO SCH (10:01)
[2021-11-23] MEDS: GABAPENTIN 300 MG CAPSULE PO SCH ×2 (10:03→21:57)
[2021-11-23] MEDS: DILTIAZEM CD 120 MG CAPSULE PO SCH (10:03)
[2021-11-23] MEDS: AMOXICILLIN/CLAV 500 MG TABLET PO SCH ×2 (10:03→21:57)
[2021-11-23] MEDS: PANTOPRAZOLE 40 MG TABLET PO SCH (10:03)
[2021-11-23] MEDS: MUPIROCIN 2% OINT 22 GM TUBE TOP SCH ×3 (10:04→21:50)
[2021-11-23] MEDS: DOCUSATE SODIUM 100 MG CAPSULE PO SCH ×2 (10:06→21:57)
[2021-11-23] MEDS: POLYETHYLENE GLYCOL POWDER 17 GM PACK PO SCH (10:07)
[2021-11-23] MEDS: SODIUM BICARB INJ 50 MEQ in SODIUM CHLORIDE 0.45% 1,000 ML IV SCH ×2 (16:55→21:50)
[2021-11-24] MEDS: ALBUTEROL/IPRATROPIUM 3 ML NEB RESP TX SCH ×6 (03:25→22:41)
[2021-11-24 05:59] LABS: Basophils # 0.1 10*3/uL (0.0-0.2); Basophils % 0.5 % (0.0-0.8); Eosinophils # 0.2 10*3/uL (0.0-0.87); Eosinophils % 0.7 % (0.00-10.9); Hematocrit 24.4 VOL% (35.7-47.0); Hemoglobin 8.7 GM/DL (12.0-16.0); Immature Granulocytes % 6.5 %; Immature Granulocytes Absolute 1.48 #; Lymphocytes # 0.9 10*3/uL (1.4-4.0); Lymphocytes % 3.9 % (21.3-54.2); Mean Corpuscular HGB Conc 35.7 GM/DL (32-36); Mean Corpuscular Volume 74.8 FL (87-102); Mean Platelet Volume 11.2 FL (9.6-12.0); Monocytes # 2.1 10*3/uL (0.11-0.8); Monocytes % 9.3 % (1.7-12.7); NRBC # 0.12 10*3/uL; Neutrophils % 79.1 % (38.7-73.9); Platelet Count 579 T/CUMM (130-400); Red Blood Count 3.26 MC/CUMM (3.8-5.5); Red Cell Distribution Width 16.4 % (9.3-17.3); White Blood Count 22.7 T/CUMM (4-12)
[2021-11-24 06:17] LABS: Calcium 8.8 MG/DL (8.5-10.1); Osmolality,Calculated 295.7 MOS/KG (273-304); Potassium 4.2 MMOL/L (3.5-5.1)
[2021-11-24 06:34] LABS: Eosinophils 1 % (0-10); Lymphocytes 2 % (20-55); Nucleated Red Blood Cells 1 /100 WBC (0-5); Platelet Estimate Increased; Total Cells Counted 100
[2021-11-24 06:35] LABS: Hypochromia Slight; Microcytosis Slight; Target Cells Few
[2021-11-24] MEDS: INSULIN LISPRO 100 UNIT/ML SUBCUT SCH ×4 (09:23→21:24)
[2021-11-24] MEDS: INSULIN NPH/REG 70/30 100 UNIT/ML SUBCUT SCH ×2 (09:24→21:24)
[2021-11-24] MEDS: ENOXAPARIN 30 MG/0.3 ML SYRINGE SUBCUT SCH (09:25)
[2021-11-24] MEDS: PANTOPRAZOLE 40 MG TABLET PO SCH (09:25)
[2021-11-24] MEDS: MULTIVITAMIN (CENTRUM) TABLET PO SCH (09:25)
[2021-11-24] MEDS: TAMOXIFEN 10 MG TABLET PO SCH (09:25)
[2021-11-24] MEDS: DILTIAZEM CD 120 MG CAPSULE PO SCH (09:26)
[2021-11-24] MEDS: GABAPENTIN 300 MG CAPSULE PO SCH ×2 (09:26→21:23)
[2021-11-24] MEDS: AMOXICILLIN/CLAV 500 MG TABLET PO SCH (09:27)
[2021-11-24] MEDS: allopurinoL 300 MG TABLET PO SCH (09:27)
[2021-11-24] MEDS: DOCUSATE SODIUM 100 MG CAPSULE PO SCH ×2 (09:28→21:23)
[2021-11-24] MEDS ORDERED: BISACODYL 10 MG SUPP RECTAL ONE (09:35)
[2021-11-24 09:52] LABS: % Iron Saturation 17.8 % (18-50); Ferritin 634.7 ng/mL (8-252)
[2021-11-24 09:55] LABS: Folate 11.42 NG/ML (5.38-24.0)
[2021-11-24] MEDS ORDERED: FUROSEMIDE 40 MG/4 ML VIAL IV ONE (10:52)
[2021-11-24] MEDS ORDERED: SODIUM PHOSPHATE ENEMA 133 ML BOTTLE RECTAL PRN (12:20)
[2021-11-24] MEDS: HEPARIN 5,000 UNIT/1 ML VIAL SUBCUT SCH ×2 (12:21→21:21)
[2021-11-24] MEDS: PIPERACILLIN/TAZOBACTAM 3,375 MG in SODIUM CHLORIDE 0.9% 100 ML IV SCH ×2 (12:22→21:20)
[2021-11-24] MEDS: guaiFENesin 200 MG/10 ML UDCUP PO SCH ×3 (12:22→21:23)
[2021-11-24] MEDS: MUPIROCIN 2% OINT 22 GM TUBE TOP SCH ×3 (12:32→21:23)
[2021-11-24] MEDS: SODIUM BICARB INJ 50 MEQ in SODIUM CHLORIDE 0.45% 1,000 ML IV SCH (12:32)
[2021-11-24] MEDS: POLYETHYLENE GLYCOL POWDER 17 GM PACK PO SCH (12:32)
[2021-11-24] MEDS: FERROUS SULFATE 325 MG TABLET PO SCH (21:23)
[2021-11-25] MEDS: ALBUTEROL/IPRATROPIUM 3 ML NEB RESP TX SCH ×5 (03:30→19:50)
[2021-11-25] MEDS: PIPERACILLIN/TAZOBACTAM 3,375 MG in SODIUM CHLORIDE 0.9% 100 ML IV SCH ×3 (05:14→20:55)
[2021-11-25 06:52] LABS: Basophils # 0.1 10*3/uL (0.0-0.2); Basophils % 0.5 % (0.0-0.8); Eosinophils # 0.1 10*3/uL (0.0-0.87); Eosinophils % 0.4 % (0.00-10.9); Hematocrit 25.6 VOL% (35.7-47.0); Immature Granulocytes % 5.6 %; Immature Granulocytes Absolute 1.31 #; Lymphocytes # 0.8 10*3/uL (1.4-4.0); Lymphocytes % 3.5 % (21.3-54.2); Mean Corpuscular HGB Conc 35.2 GM/DL (32-36); Mean Corpuscular Volume 75.5 FL (87-102); Mean Platelet Volume 10.7 FL (9.6-12.0); Monocytes # 1.8 10*3/uL (0.11-0.8); Monocytes % 7.9 % (1.7-12.7); NRBC # 0.07 10*3/uL; Neutrophils % 82.1 % (38.7-73.9); Platelet Count 579 T/CUMM (130-400); Red Blood Count 3.39 MC/CUMM (3.8-5.5); Red Cell Distribution Width 16.3 % (9.3-17.3); White Blood Count 23.2 T/CUMM (4-12)
[2021-11-25 06:59] LABS: PT Patient Result 10.9 SECS (10.1-12.1)
[2021-11-25 07:23] LABS: Calcium 8.7 MG/DL (8.5-10.1); Potassium 4.4 MMOL/L (3.5-5.1)
[2021-11-25 07:34] LABS: Hypochromia Slight; Lymphocytes 6 % (20-55); Microcytosis Slight; Platelet Estimate Increased; Total Cells Counted 100
[2021-11-25 07:35] LABS: Target Cells Few
[2021-11-25] MEDS: INSULIN LISPRO 100 UNIT/ML SUBCUT SCH ×4 (08:16→21:00)
[2021-11-25] MEDS: guaiFENesin 200 MG/10 ML UDCUP PO SCH ×3 (09:42→20:52)
[2021-11-25] MEDS: MULTIVITAMIN (CENTRUM) TABLET PO SCH (09:42)
[2021-11-25] MEDS: TAMOXIFEN 10 MG TABLET PO SCH (09:42)
[2021-11-25] MEDS: allopurinoL 300 MG TABLET PO SCH (09:43)
[2021-11-25] MEDS: DILTIAZEM CD 120 MG CAPSULE PO SCH (09:43)
[2021-11-25] MEDS: GABAPENTIN 300 MG CAPSULE PO SCH ×2 (09:43→20:50)
[2021-11-25] MEDS: FERROUS SULFATE 325 MG TABLET PO SCH ×2 (09:43→20:51)
[2021-11-25] MEDS: DOCUSATE SODIUM 100 MG CAPSULE PO SCH ×2 (09:44→20:51)
[2021-11-25] MEDS: FUROSEMIDE 40 MG/4 ML VIAL IV SCH ×2 (09:44→15:08)
[2021-11-25] MEDS: PANTOPRAZOLE 40 MG TABLET PO SCH (09:44)
[2021-11-25] MEDS: INSULIN NPH/REG 70/30 100 UNIT/ML SUBCUT SCH ×2 (09:45→21:02)
[2021-11-25] MEDS: POLYETHYLENE GLYCOL POWDER 17 GM PACK PO SCH (09:45)
[2021-11-25] MEDS: MUPIROCIN 2% OINT 22 GM TUBE TOP SCH ×3 (09:46→20:56)
[2021-11-25] MEDS: HEPARIN 5,000 UNIT/1 ML VIAL SUBCUT SCH ×2 (09:54→21:22)
[2021-11-25 11:39] LABS: Arterial Base Excess iSTAT -5 MMOL/L (-2.5-2.5); Arterial Bicarbonate iSTAT 22.2 MMOL/L (20-26); Arterial O2 Saturation iSTAT 91 % (95-100); Arterial PCO2 iSTAT 50 MM HG (35-48); Arterial PO2 iSTAT 71 MM HG (80-95); Arterial Total CO2 iSTAT 24 MMO/L (23-27); Arterial pH iSTAT 7.258 (7.35-7.45)
[2021-11-26] MEDS: ALBUTEROL/IPRATROPIUM 3 ML NEB RESP TX SCH ×7 (00:46→23:14)
[2021-11-26] MEDS: PIPERACILLIN/TAZOBACTAM 3,375 MG in SODIUM CHLORIDE 0.9% 100 ML IV SCH ×2 (04:55→12:38)
[2021-11-26 07:53] LABS: Basophils # 0.1 10*3/uL (0.0-0.2); Basophils % 0.3 % (0.0-0.8); Eosinophils # 0.1 10*3/uL (0.0-0.87); Eosinophils % 0.4 % (0.00-10.9); Hematocrit 25.2 VOL% (35.7-47.0); Hemoglobin 8.7 GM/DL (12.0-16.0); Immature Granulocytes % 4.9 %; Lymphocytes # 0.9 10*3/uL (1.4-4.0); Mean Corpuscular HGB Conc 34.5 GM/DL (32-36); Mean Platelet Volume 10.4 FL (9.6-12.0); Monocytes # 1.7 10*3/uL (0.11-0.8); Monocytes % 7.5 % (1.7-12.7); NRBC # 0.05 10*3/uL; Neutrophils % 82.9 % (38.7-73.9); Platelet Count 544 T/CUMM (130-400); Red Blood Count 3.36 MC/CUMM (3.8-5.5); White Blood Count 22.4 T/CUMM (4-12)
[2021-11-26] MEDS: INSULIN LISPRO 100 UNIT/ML SUBCUT SCH ×4 (08:23→21:55)
[2021-11-26 08:28] LABS: Calcium 8.9 MG/DL (8.5-10.1); Osmolality,Calculated 290.1 MOS/KG (273-304); Potassium 4.5 MMOL/L (3.5-5.1)
[2021-11-26 08:36] LABS: Band Neutrophils 1 % (0-10); Eosinophils 2 % (0-10); Hypochromia Slight; Lymphocytes 7 % (20-55); Microcytosis Slight; Nucleated Red Blood Cells 1 /100 WBC (0-5); Platelet Estimate Increased; Total Cells Counted 100
[2021-11-26 08:37] LABS: Target Cells Few
[2021-11-26] MEDS ORDERED: FUROSEMIDE 100 MG/10 ML VIAL IV SCH ×2 (09:00→11:00)
[2021-11-26] MEDS: FUROSEMIDE 40 MG/4 ML VIAL IV SCH ×2 (09:48→15:12)
[2021-11-26] MEDS: GABAPENTIN 300 MG CAPSULE PO SCH ×2 (10:08→21:55)
[2021-11-26] MEDS: guaiFENesin 200 MG/10 ML UDCUP PO SCH ×3 (10:08→21:55)
[2021-11-26] MEDS: TAMOXIFEN 10 MG TABLET PO SCH (10:08)
[2021-11-26] MEDS: allopurinoL 300 MG TABLET PO SCH (10:08)
[2021-11-26] MEDS: MULTIVITAMIN (CENTRUM) TABLET PO SCH (10:08)
[2021-11-26] MEDS: PANTOPRAZOLE 40 MG TABLET PO SCH (10:08)
[2021-11-26] MEDS: DILTIAZEM CD 120 MG CAPSULE PO SCH (10:09)
[2021-11-26] MEDS: FERROUS SULFATE 325 MG TABLET PO SCH ×2 (10:09→21:55)
[2021-11-26] MEDS: DOCUSATE SODIUM 100 MG CAPSULE PO SCH ×2 (10:09→21:55)
[2021-11-26] MEDS: MUPIROCIN 2% OINT 22 GM TUBE TOP SCH ×3 (10:10→21:55)
[2021-11-26] MEDS: POLYETHYLENE GLYCOL POWDER 17 GM PACK PO SCH (10:10)
[2021-11-26] MEDS: HEPARIN 5,000 UNIT/1 ML VIAL SUBCUT SCH ×2 (10:10→21:55)
[2021-11-26] MEDS: metOLazone 5 MG TABLET PO SCH (10:20)
[2021-11-26] MEDS: INSULIN NPH/REG 70/30 100 UNIT/ML SUBCUT SCH ×2 (10:23→21:55)
[2021-11-26] MEDS ORDERED: PIPERACILLIN IV SCH (11:00)
[2021-11-26] MEDS ORDERED: SODIUM CHLORIDE 0.9% IV SCH (11:00)
[2021-11-26] MEDS ORDERED: TAZOBACTAM IV SCH (11:00)
[2021-11-27] MEDS: PIPERACILLIN/TAZOBACTAM 3,375 MG in SODIUM CHLORIDE 0.9% 100 ML IV SCH ×2 (02:45→16:02)
[2021-11-27] MEDS: ALBUTEROL/IPRATROPIUM 3 ML NEB RESP TX SCH ×6 (03:17→22:50)
[2021-11-27 04:57] LABS: Basophils # 0.1 10*3/uL (0.0-0.2); Basophils % 0.3 % (0.0-0.8); Eosinophils # 0.1 10*3/uL (0.0-0.87); Eosinophils % 0.6 % (0.00-10.9); Hematocrit 24.3 VOL% (35.7-47.0); Hemoglobin 8.5 GM/DL (12.0-16.0); Immature Granulocytes % 4.7 %; Immature Granulocytes Absolute 1.07 #; Lymphocytes # 0.9 10*3/uL (1.4-4.0); Lymphocytes % 3.9 % (21.3-54.2); Mean Corpuscular Volume 76.2 FL (87-102); Mean Platelet Volume 10.7 FL (9.6-12.0); Monocytes # 1.7 10*3/uL (0.11-0.8); Monocytes % 7.7 % (1.7-12.7); Neutrophils % 82.8 % (38.7-73.9); Platelet Count 559 T/CUMM (130-400); Red Blood Count 3.19 MC/CUMM (3.8-5.5); Red Cell Distribution Width 16.9 % (9.3-17.3); White Blood Count 22.6 T/CUMM (4-12)
[2021-11-27 05:24] LABS: Calcium 9.1 MG/DL (8.5-10.1); Potassium 4.4 MMOL/L (3.5-5.1)
[2021-11-27 05:31] LABS: Hypochromia Slight; Lymphocytes 5 % (20-55); Microcytosis Slight; Nucleated Red Blood Cells 1 /100 WBC (0-5); Platelet Estimate Adequate; Total Cells Counted 100
[2021-11-27 05:32] LABS: Target Cells Few
[2021-11-27] MEDS: guaiFENesin 200 MG/10 ML UDCUP PO SCH ×3 (09:55→21:48)
[2021-11-27] MEDS: FUROSEMIDE 40 MG/4 ML VIAL IV SCH ×2 (09:55→15:35)
[2021-11-27] MEDS: TAMOXIFEN 10 MG TABLET PO SCH (09:56)
[2021-11-27] MEDS: MULTIVITAMIN (CENTRUM) TABLET PO SCH (09:56)
[2021-11-27] MEDS: HEPARIN 5,000 UNIT/1 ML VIAL SUBCUT SCH ×2 (09:56→21:49)
[2021-11-27] MEDS: DILTIAZEM CD 120 MG CAPSULE PO SCH (09:56)
[2021-11-27] MEDS: FERROUS SULFATE 325 MG TABLET PO SCH ×2 (09:56→21:48)
[2021-11-27] MEDS: allopurinoL 300 MG TABLET PO SCH (09:56)
[2021-11-27] MEDS: metOLazone 5 MG TABLET PO SCH (09:57)
[2021-11-27] MEDS: POLYETHYLENE GLYCOL POWDER 17 GM PACK PO SCH (09:57)
[2021-11-27] MEDS: GABAPENTIN 300 MG CAPSULE PO SCH ×2 (09:57→21:48)
[2021-11-27] MEDS: MUPIROCIN 2% OINT 22 GM TUBE TOP SCH ×3 (09:57→21:50)
[2021-11-27] MEDS: DOCUSATE SODIUM 100 MG CAPSULE PO SCH ×2 (09:57→21:49)
[2021-11-27] MEDS: PANTOPRAZOLE 40 MG TABLET PO SCH (09:57)
[2021-11-27] MEDS: INSULIN NPH/REG 70/30 100 UNIT/ML SUBCUT SCH (09:58)
[2021-11-27] MEDS: INSULIN LISPRO 100 UNIT/ML SUBCUT SCH ×3 (13:16→21:49)
[2021-11-27 16:42] LABS: Arterial Base Excess iSTAT -4 MMOL/L (-2.5-2.5); Arterial Bicarbonate iSTAT 22.6 MMOL/L (20-26); Arterial O2 Saturation iSTAT 78 % (95-100); Arterial PCO2 iSTAT 45 MM HG (35-48); Arterial PO2 iSTAT 47 MM HG (80-95); Arterial Total CO2 iSTAT 24 MMO/L (23-27); Arterial pH iSTAT 7.311 (7.35-7.45)
[2021-11-28] MEDS: ALBUTEROL/IPRATROPIUM 3 ML NEB RESP TX SCH ×7 (03:12→22:50)
[2021-11-28] MEDS: PIPERACILLIN/TAZOBACTAM 3,375 MG in SODIUM CHLORIDE 0.9% 100 ML IV SCH ×2 (04:19→16:39)
[2021-11-28 05:47] LABS: Basophils # 0.1 10*3/uL (0.0-0.2); Basophils % 0.5 % (0.0-0.8); Eosinophils # 0.1 10*3/uL (0.0-0.87); Eosinophils % 0.5 % (0.00-10.9); Hematocrit 26.8 VOL% (35.7-47.0); Immature Granulocytes % 4.4 %; Immature Granulocytes Absolute 1.08 #; Lymphocytes # 0.8 10*3/uL (1.4-4.0); Lymphocytes % 3.1 % (21.3-54.2); Mean Corpuscular HGB Conc 33.6 GM/DL (32-36); Mean Corpuscular Volume 78.6 FL (87-102); Mean Platelet Volume 10.5 FL (9.6-12.0); Monocytes # 1.7 10*3/uL (0.11-0.8); Monocytes % 6.7 % (1.7-12.7); NRBC # 0.15 10*3/uL; Neutrophils % 84.8 % (38.7-73.9); Platelet Count 519 T/CUMM (130-400); Red Blood Count 3.41 MC/CUMM (3.8-5.5); Red Cell Distribution Width 17.4 % (9.3-17.3); White Blood Count 24.8 T/CUMM (4-12)
[2021-11-28 06:05] LABS: Calcium 8.8 MG/DL (8.5-10.1); Osmolality,Calculated 293.4 MOS/KG (273-304); Potassium 4.3 MMOL/L (3.5-5.1)
[2021-11-28 06:16] LABS: Hypochromia Slight; Lymphocytes 2 % (20-55); Nucleated Red Blood Cells 1 /100 WBC (0-5); Platelet Estimate Increased; Total Cells Counted 100
[2021-11-28 06:17] LABS: Microcytosis Slight; Target Cells Few
[2021-11-28] MEDS: INSULIN LISPRO 100 UNIT/ML SUBCUT SCH ×4 (07:51→22:25)
[2021-11-28] MEDS: GABAPENTIN 300 MG CAPSULE PO SCH ×2 (10:04→22:26)
[2021-11-28] MEDS: guaiFENesin 200 MG/10 ML UDCUP PO SCH ×3 (10:04→22:26)
[2021-11-28] MEDS: MULTIVITAMIN (CENTRUM) TABLET PO SCH (10:04)
[2021-11-28] MEDS: PANTOPRAZOLE 40 MG TABLET PO SCH (10:04)
[2021-11-28] MEDS: allopurinoL 300 MG TABLET PO SCH (10:05)
[2021-11-28] MEDS: DOCUSATE SODIUM 100 MG CAPSULE PO SCH ×2 (10:05→22:27)
[2021-11-28] MEDS: FERROUS SULFATE 325 MG TABLET PO SCH ×2 (10:05→22:26)
[2021-11-28] MEDS: FUROSEMIDE 40 MG/4 ML VIAL IV SCH ×2 (10:06→22:27)
[2021-11-28] MEDS: POLYETHYLENE GLYCOL POWDER 17 GM PACK PO SCH (10:07)
[2021-11-28] MEDS: metOLazone 5 MG TABLET PO SCH (10:08)
[2021-11-28] MEDS: DILTIAZEM CD 120 MG CAPSULE PO SCH (10:10)
[2021-11-28] MEDS: INSULIN GLARGINE 100 UNIT/ML SUBCUT SCH (10:10)
[2021-11-28] MEDS: HEPARIN 5,000 UNIT/1 ML VIAL SUBCUT SCH ×2 (10:18→22:26)
[2021-11-28] MEDS: TAMOXIFEN 10 MG TABLET PO SCH (16:40)
[2021-11-28] MEDS: MUPIROCIN 2% OINT 22 GM TUBE TOP SCH ×2 (16:40→22:20)
[2021-11-28] MEDS: ACETAMINOPHEN 325 MG TABLET PO PRN ×2 (17:38→22:26)
[2021-11-28] MEDS ORDERED: CLORAZEPATE 3.75 MG TABLET PO ONE (19:00)
[2021-11-29] MEDS: ALBUTEROL/IPRATROPIUM 3 ML NEB RESP TX SCH ×6 (03:16→23:51)
[2021-11-29 05:20] LABS: Osmolality,Calculated 295.1 MOS/KG (273-304); Potassium 4.1 MMOL/L (3.5-5.1)
[2021-11-29] MEDS: PIPERACILLIN/TAZOBACTAM 3,375 MG in SODIUM CHLORIDE 0.9% 100 ML IV SCH (06:15)
[2021-11-29] MEDS ORDERED: PROMETHAZINE 25 MG/1 ML VIAL IM ONE (07:30)
[2021-11-29] MEDS ORDERED: MEPERIDINE 50 MG/1 ML VIAL IM ONE (07:30)
[2021-11-29] MEDS ORDERED: LIDOCAINE 2% VISCOUS 100 ML BOTTLE SWISH/SPIT ONE (08:00)
[2021-11-29] MEDS ORDERED: LIDOCAINE 2% 20 ML VIAL RESP TX ONE (08:00)
[2021-11-29] MEDS ORDERED: LIDOCAINE 1% 20 ML VIAL MISC INJ ONE (08:00)
[2021-11-29] MEDS ORDERED: MIDAZOLAM 2 MG/2 ML VIAL IV ONE (08:00)
[2021-11-29] MEDS: INSULIN LISPRO 100 UNIT/ML SUBCUT SCH ×4 (10:09→22:10)
[2021-11-29] MEDS: TAMOXIFEN 10 MG TABLET PO SCH (10:46)
[2021-11-29] MEDS: allopurinoL 300 MG TABLET PO SCH (10:46)
[2021-11-29] MEDS: FERROUS SULFATE 325 MG TABLET PO SCH ×2 (10:46→22:45)
[2021-11-29] MEDS: PANTOPRAZOLE 40 MG TABLET PO SCH (10:46)
[2021-11-29] MEDS: GABAPENTIN 300 MG CAPSULE PO SCH ×2 (10:47→22:45)
[2021-11-29] MEDS: DOCUSATE SODIUM 100 MG CAPSULE PO SCH ×2 (10:47→22:46)
[2021-11-29] MEDS: DILTIAZEM CD 120 MG CAPSULE PO SCH (10:47)
[2021-11-29] MEDS: metOLazone 5 MG TABLET PO SCH (10:47)
[2021-11-29] MEDS: INSULIN GLARGINE 100 UNIT/ML SUBCUT SCH (10:48)
[2021-11-29] MEDS: POLYETHYLENE GLYCOL POWDER 17 GM PACK PO SCH (10:48)
[2021-11-29] MEDS: guaiFENesin 200 MG/10 ML UDCUP PO SCH ×3 (10:48→22:44)
[2021-11-29] MEDS: MULTIVITAMIN (CENTRUM) TABLET PO SCH (10:48)
[2021-11-29 10:50] LABS: Basophils # 0.1 10*3/uL (0.0-0.2); Basophils % 0.3 % (0.0-0.8); Eosinophils # 0.2 10*3/uL (0.0-0.87); Eosinophils % 0.6 % (0.00-10.9); Hematocrit 27.6 VOL% (35.7-47.0); Hemoglobin 9.6 GM/DL (12.0-16.0); Immature Granulocytes % 3.5 %; Immature Granulocytes Absolute 0.94 #; Lymphocytes # 0.9 10*3/uL (1.4-4.0); Lymphocytes % 3.5 % (21.3-54.2); Mean Corpuscular HGB Conc 34.8 GM/DL (32-36); Mean Platelet Volume 10.2 FL (9.6-12.0); Monocytes # 1.9 10*3/uL (0.11-0.8); Monocytes % 7.2 % (1.7-12.7); NRBC # 0.15 10*3/uL; Neutrophils % 84.9 % (38.7-73.9); Platelet Count 502 T/CUMM (130-400); Red Blood Count 3.63 MC/CUMM (3.8-5.5); Red Cell Distribution Width 17.2 % (9.3-17.3); White Blood Count 26.7 T/CUMM (4-12)
[2021-11-29] MEDS: MUPIROCIN 2% OINT 22 GM TUBE TOP SCH ×3 (10:53→22:46)
[2021-11-29 11:09] LABS: Eosinophils 1 % (0-10); Lymphocytes 7 % (20-55); Nucleated Red Blood Cells 1 /100 WBC (0-5); Total Cells Counted 100
[2021-11-29 11:10] LABS: Anisocytosis 1+; Hypochromia 1+; Macrocytosis 1+; Microcytosis 1+; Platelet Estimate Increased; Target Cells 1+
[2021-11-29] MEDS: HEPARIN 5,000 UNIT/1 ML VIAL SUBCUT SCH (11:10)
[2021-11-29] MEDS: FUROSEMIDE 40 MG/4 ML VIAL IV SCH ×2 (11:10→15:43)
[2021-11-29 11:11] LABS: Poikilocytosis Slight; Polychromasia Slight; Schistocytes Few
[2021-11-29] MEDS: MEROPENEM 500 MG in SODIUM CHLORIDE 0.9% 100 ML IV SCH ×2 (12:06→21:34)
[2021-11-29] MEDS: methylPREDNISolone SOD SUC 40 MG/1 ML VIAL IV SCH ×2 (12:08→22:45)
[2021-11-29] MEDS: LINEZOLID INJ 600 MG/300 ML PREMIX IV SCH (13:12)
[2021-11-29 15:41] LABS: Bilirubin,Urine Negative (Negative); Blood, Urine Moderate mg/dL (Negative); Glucose,Urine (UA) Negative (Negative); Ketones,Urine Negative (Negative); Mucus,Urine Moderate /LPF (Occasional); Nitrite,Urine Negative (Negative); Protein,Urine 30 mg/dL (Negative); RBC,Urine 1204 /HPF (0-4); Urine Appearance CLOUDY (Clear); Urine Color Yellow (Yellow); Urine Specific Gravity 1.006 (1.001-1.035); Urine Urobilinogen < 2.0 eU/dL (<2.0)
[2021-11-30] MEDS: HEPARIN 5,000 UNIT/1 ML VIAL SUBCUT SCH ×3 (00:09→21:18)
[2021-11-30] MEDS: LINEZOLID INJ 600 MG/300 ML PREMIX IV SCH ×2 (00:45→13:45)
[2021-11-30] MEDS: ALBUTEROL/IPRATROPIUM 3 ML NEB RESP TX SCH ×6 (04:07→22:38)
[2021-11-30] MEDS: methylPREDNISolone SOD SUC 40 MG/1 ML VIAL IV SCH ×3 (05:34→21:20)
[2021-11-30 05:46] LABS: Basophils % 0.1 % (0.0-0.8); Hematocrit 26.5 VOL% (35.7-47.0); Hemoglobin 9.4 GM/DL (12.0-16.0); Immature Granulocytes % 3.1 %; Immature Granulocytes Absolute 0.54 #; Lymphocytes # 0.3 10*3/uL (1.4-4.0); Lymphocytes % 1.7 % (21.3-54.2); Mean Corpuscular HGB Conc 35.5 GM/DL (32-36); Mean Corpuscular Volume 75.1 FL (87-102); Mean Platelet Volume 10.1 FL (9.6-12.0); Monocytes # 0.2 10*3/uL (0.11-0.8); NRBC # 0.18 10*3/uL; Neutrophils % 94.1 % (38.7-73.9); Platelet Count 488 T/CUMM (130-400); Red Blood Count 3.53 MC/CUMM (3.8-5.5); Red Cell Distribution Width 17.1 % (9.3-17.3); White Blood Count 17.7 T/CUMM (4-12)
[2021-11-30 06:06] LABS: Anisocytosis 1+; Hypochromia 1+; Lymphocytes 2 % (20-55); Metamyelocytes 1 %; Microcytosis 1+; Polychromasia Slight; Target Cells Few; Total Cells Counted 100
[2021-11-30 06:07] LABS: Platelet Estimate Increased
[2021-11-30 06:12] LABS: Calcium 9.3 MG/DL (8.5-10.1); Osmolality,Calculated 292.5 MOS/KG (273-304); Potassium 4.8 MMOL/L (3.5-5.1)
[2021-11-30 09:35] LABS: Arterial Base Excess iSTAT -1 MMOL/L (-2.5-2.5); Arterial Bicarbonate iSTAT 25.1 MMOL/L (20-26); Arterial O2 Saturation iSTAT 75 % (95-100); Arterial PCO2 iSTAT 46 MM HG (35-48); Arterial PO2 iSTAT 43 MM HG (80-95); Arterial Total CO2 iSTAT 26 MMO/L (23-27); Arterial pH iSTAT 7.342 (7.35-7.45)
[2021-11-30] MEDS: INSULIN LISPRO 100 UNIT/ML SUBCUT SCH ×4 (11:06→21:18)
[2021-11-30] MEDS: FUROSEMIDE 40 MG/4 ML VIAL IV SCH ×2 (11:59→17:47)
[2021-11-30] MEDS: TAMOXIFEN 10 MG TABLET PO SCH (12:00)
[2021-11-30] MEDS: MULTIVITAMIN (CENTRUM) TABLET PO SCH (12:00)
[2021-11-30] MEDS: ACETAMINOPHEN 325 MG TABLET PO PRN ×2 (12:01→23:32)
[2021-11-30] MEDS: DOCUSATE SODIUM 100 MG CAPSULE PO SCH ×2 (12:01→21:16)
[2021-11-30] MEDS: FERROUS SULFATE 325 MG TABLET PO SCH ×2 (12:01→21:16)
[2021-11-30] MEDS: DILTIAZEM CD 120 MG CAPSULE PO SCH (12:01)
[2021-11-30] MEDS: PANTOPRAZOLE 40 MG TABLET PO SCH (12:02)
[2021-11-30] MEDS: INSULIN GLARGINE 100 UNIT/ML SUBCUT SCH (12:02)
[2021-11-30] MEDS: GABAPENTIN 300 MG CAPSULE PO SCH ×2 (12:05→21:19)
[2021-11-30] MEDS: MEROPENEM 500 MG in SODIUM CHLORIDE 0.9% 100 ML IV SCH ×2 (12:13→21:18)
[2021-11-30] MEDS: MUPIROCIN 2% OINT 22 GM TUBE TOP SCH ×3 (13:00→21:16)
[2021-11-30] MEDS: POLYETHYLENE GLYCOL POWDER 17 GM PACK PO SCH (13:00)
[2021-11-30] MEDS: allopurinoL 300 MG TABLET PO SCH (13:44)
[2021-11-30] MEDS: guaiFENesin 200 MG/10 ML UDCUP PO SCH ×3 (13:44→21:19)
[2021-12-01] MEDS ORDERED: MORPHINE 2 MG/1 ML SYRINGE IV ONE (00:45)
[2021-12-01] MEDS: LINEZOLID INJ 600 MG/300 ML PREMIX IV SCH ×2 (00:49→12:08)
[2021-12-01] MEDS: ALBUTEROL/IPRATROPIUM 3 ML NEB RESP TX SCH ×6 (03:27→23:15)
[2021-12-01 04:02] LABS: Arterial Base Excess iSTAT 0 MMOL/L (-2.5-2.5); Arterial O2 Saturation iSTAT 94 % (95-100); Arterial PCO2 iSTAT 50 MM HG (35-48); Arterial PO2 iSTAT 78 MM HG (80-95); Arterial Total CO2 iSTAT 28 MMO/L (23-27); Arterial pH iSTAT 7.328 (7.35-7.45)
[2021-12-01 04:28] LABS: Basophils % 0.2 % (0.0-0.8); Hematocrit 26.2 VOL% (35.7-47.0); Hemoglobin 9.3 GM/DL (12.0-16.0); Immature Granulocytes % 2.9 %; Immature Granulocytes Absolute 0.54 #; Lymphocytes # 0.5 10*3/uL (1.4-4.0); Lymphocytes % 2.6 % (21.3-54.2); Mean Corpuscular HGB Conc 35.5 GM/DL (32-36); Mean Corpuscular Volume 74.4 FL (87-102); Mean Platelet Volume 9.4 FL (9.6-12.0); Monocytes # 0.5 10*3/uL (0.11-0.8); Monocytes % 2.4 % (1.7-12.7); NRBC # 0.36 10*3/uL; Neutrophils % 91.9 % (38.7-73.9); Platelet Count 484 T/CUMM (130-400); Red Blood Count 3.52 MC/CUMM (3.8-5.5); Red Cell Distribution Width 17.2 % (9.3-17.3); White Blood Count 18.8 T/CUMM (4-12)
[2021-12-01 04:46] LABS: Calcium 9.1 MG/DL (8.5-10.1); Osmolality,Calculated 296.5 MOS/KG (273-304); Potassium 4.1 MMOL/L (3.5-5.1)
[2021-12-01 04:54] LABS: Anisocytosis 2+; Lymphocytes 6 % (20-55); Nucleated Red Blood Cells 4 /100 WBC (0-5); Poikilocytosis 2+; Total Cells Counted 100
[2021-12-01 04:55] LABS: Platelet Estimate Increased; Polychromasia 1+; Target Cells 1+
[2021-12-01] MEDS: methylPREDNISolone SOD SUC 40 MG/1 ML VIAL IV SCH ×3 (06:02→21:41)
[2021-12-01] MEDS: INSULIN LISPRO 100 UNIT/ML SUBCUT SCH ×4 (08:37→20:30)
[2021-12-01] MEDS: FERROUS SULFATE 325 MG TABLET PO SCH ×2 (08:56→21:40)
[2021-12-01] MEDS: TAMOXIFEN 10 MG TABLET PO SCH (08:56)
[2021-12-01] MEDS: DOCUSATE SODIUM 100 MG CAPSULE PO SCH ×2 (08:56→21:40)
[2021-12-01] MEDS: MULTIVITAMIN (CENTRUM) TABLET PO SCH (08:56)
[2021-12-01] MEDS: INSULIN GLARGINE 100 UNIT/ML SUBCUT SCH (08:58)
[2021-12-01] MEDS: HEPARIN 5,000 UNIT/1 ML VIAL SUBCUT SCH ×2 (08:58→21:40)
[2021-12-01] MEDS: MEROPENEM 500 MG in SODIUM CHLORIDE 0.9% 100 ML IV SCH ×2 (08:59→21:40)
[2021-12-01] MEDS: guaiFENesin 200 MG/10 ML UDCUP PO SCH ×3 (09:00→21:41)
[2021-12-01] MEDS: FUROSEMIDE 40 MG/4 ML VIAL IV SCH ×2 (09:00→16:25)
[2021-12-01] MEDS: GABAPENTIN 300 MG CAPSULE PO SCH ×2 (09:00→21:41)
[2021-12-01] MEDS: DILTIAZEM CD 120 MG CAPSULE PO SCH (09:00)
[2021-12-01] MEDS: allopurinoL 300 MG TABLET PO SCH (09:01)
[2021-12-01] MEDS: MUPIROCIN 2% OINT 22 GM TUBE TOP SCH ×3 (09:03→21:40)
[2021-12-01] MEDS: PANTOPRAZOLE 40 MG TABLET PO SCH (09:03)
[2021-12-01] MEDS: POLYETHYLENE GLYCOL POWDER 17 GM PACK PO SCH (10:44)
[2021-12-01 19:51] LABS: M. Tuberculosis PCR Result Negative (Negative); M. Tuberculosis PCR Source BRONCH WASH
[2021-12-02] MEDS: ALBUTEROL/IPRATROPIUM 3 ML NEB RESP TX SCH ×6 (03:15→22:40)
[2021-12-02 06:12] LABS: Basophils % 0.1 % (0.0-0.8); Hematocrit 25.9 VOL% (35.7-47.0); Hemoglobin 9.1 GM/DL (12.0-16.0); Immature Granulocytes % 2.1 %; Immature Granulocytes Absolute 0.45 #; Lymphocytes # 0.4 10*3/uL (1.4-4.0); Lymphocytes % 1.8 % (21.3-54.2); Mean Corpuscular HGB Conc 35.1 GM/DL (32-36); Mean Corpuscular Volume 74.9 FL (87-102); Monocytes % 4.8 % (1.7-12.7); NRBC # 0.44 10*3/uL; Neutrophils % 91.2 % (38.7-73.9); Platelet Count 455 T/CUMM (130-400); Red Blood Count 3.46 MC/CUMM (3.8-5.5); White Blood Count 21.6 T/CUMM (4-12)
[2021-12-02] MEDS: methylPREDNISolone SOD SUC 40 MG/1 ML VIAL IV SCH ×2 (06:17→21:45)
[2021-12-02 06:35] LABS: Albumin 2.2 G/DL (3.4-5.0); Bilirubin,Total 0.4 MG/DL (0.20-1.00); Calcium 8.7 MG/DL (8.5-10.1); Osmolality,Calculated 296.4 MOS/KG (273-304); Phosphorous 4.7 MG/DL (2.5-4.9); Potassium 4.1 MMOL/L (3.5-5.1); Total Protein 6.1 G/DL (6.4-8.2)
[2021-12-02 07:03] LABS: Anisocytosis 1+; Band Neutrophils 2 % (0-10); Lymphocytes 2 % (20-55); Nucleated Red Blood Cells 7 /100 WBC (0-5); Platelet Estimate Normal; Poikilocytosis Slight; Target Cells 3+; Total Cells Counted 100
[2021-12-02 07:04] LABS: Acanthocytes Few; Tear Drop Cells Few
[2021-12-02] MEDS: INSULIN LISPRO 100 UNIT/ML SUBCUT SCH ×4 (08:11→21:45)
[2021-12-02] MEDS: TAMOXIFEN 10 MG TABLET PO SCH (08:41)
[2021-12-02] MEDS: allopurinoL 300 MG TABLET PO SCH (08:42)
[2021-12-02] MEDS: DOCUSATE SODIUM 100 MG CAPSULE PO SCH ×2 (08:42→21:46)
[2021-12-02] MEDS: FERROUS SULFATE 325 MG TABLET PO SCH ×2 (08:42→21:46)
[2021-12-02] MEDS: GABAPENTIN 300 MG CAPSULE PO SCH ×2 (08:42→21:46)
[2021-12-02] MEDS: guaiFENesin 200 MG/10 ML UDCUP PO SCH ×3 (08:43→21:49)
[2021-12-02] MEDS: MULTIVITAMIN (CENTRUM) TABLET PO SCH (08:43)
[2021-12-02] MEDS: POLYETHYLENE GLYCOL POWDER 17 GM PACK PO SCH (08:44)
[2021-12-02] MEDS: DILTIAZEM CD 120 MG CAPSULE PO SCH (08:44)
[2021-12-02] MEDS: PANTOPRAZOLE 40 MG TABLET PO SCH (08:44)
[2021-12-02] MEDS: FUROSEMIDE 40 MG/4 ML VIAL IV SCH ×2 (08:45→16:15)
[2021-12-02] MEDS: MEROPENEM 500 MG in SODIUM CHLORIDE 0.9% 100 ML IV SCH ×2 (08:49→21:44)
[2021-12-02] MEDS: INSULIN GLARGINE 100 UNIT/ML SUBCUT SCH (08:49)
[2021-12-02] MEDS: HEPARIN 5,000 UNIT/1 ML VIAL SUBCUT SCH ×2 (08:50→21:47)
[2021-12-02] MEDS: MUPIROCIN 2% OINT 22 GM TUBE TOP SCH ×3 (08:52→21:47)
[2021-12-02] MEDS: BUDESONIDE 0.5 MG/2 ML NEB RESP TX SCH ×2 (11:00→19:03)
[2021-12-02] MEDS ORDERED: FUROSEMIDE 40 MG/4 ML VIAL IV ONE (12:00)
[2021-12-03] MEDS: ALBUTEROL/IPRATROPIUM 3 ML NEB RESP TX SCH ×6 (03:04→23:53)
[2021-12-03 03:26] LABS: Arterial Base Excess iSTAT -2 MMOL/L (-2.5-2.5); Arterial Bicarbonate iSTAT 23.9 MMOL/L (20-26); Arterial O2 Saturation iSTAT 88 % (95-100); Arterial PCO2 iSTAT 42 MM HG (35-48); Arterial PO2 iSTAT 56 MM HG (80-95); Arterial Total CO2 iSTAT 25 MMO/L (23-27); Arterial pH iSTAT 7.361 (7.35-7.45)
[2021-12-03 05:04] LABS: Basophils % 0.1 % (0.0-0.8); Hematocrit 26.8 VOL% (35.7-47.0); Hemoglobin 9.5 GM/DL (12.0-16.0); Immature Granulocytes % 2.4 %; Immature Granulocytes Absolute 0.69 #; Lymphocytes # 0.2 10*3/uL (1.4-4.0); Lymphocytes % 0.6 % (21.3-54.2); Mean Corpuscular HGB Conc 35.4 GM/DL (32-36); Mean Corpuscular Volume 74.2 FL (87-102); Mean Platelet Volume 9.5 FL (9.6-12.0); Monocytes # 0.8 10*3/uL (0.11-0.8); Monocytes % 2.9 % (1.7-12.7); NRBC # 0.46 10*3/uL; Platelet Count 422 T/CUMM (130-400); Red Blood Count 3.61 MC/CUMM (3.8-5.5); Red Cell Distribution Width 17.1 % (9.3-17.3); White Blood Count 28.7 T/CUMM (4-12)
[2021-12-03 05:27] LABS: Albumin 2.2 G/DL (3.4-5.0); Bilirubin,Total 0.4 MG/DL (0.20-1.00); Calcium 8.6 MG/DL (8.5-10.1); Osmolality,Calculated 290.2 MOS/KG (273-304); Potassium 4.1 MMOL/L (3.5-5.1); Total Protein 6.1 G/DL (6.4-8.2)
[2021-12-03 05:33] LABS: Hypochromia Slight; Microcytosis Slight; Nucleated Red Blood Cells 1 /100 WBC (0-5); Platelet Estimate Adequate; Target Cells Slight; Total Cells Counted 100
[2021-12-03] MEDS: BUDESONIDE 0.5 MG/2 ML NEB RESP TX SCH ×2 (07:24→19:46)
[2021-12-03] MEDS ORDERED: ETOMIDATE 20 MG/10 ML VIAL IV ONE ×2 (10:00→10:04)
[2021-12-03] MEDS ORDERED: SUCCINYLCHOLINE 200 MG/10 ML VIAL IV ONE (10:00)
[2021-12-03] MEDS ORDERED: SUCCINYLCHOLINE 200 MG/10 ML VIAL ONE (10:05)
[2021-12-03] MEDS: HEPARIN 5,000 UNIT/1 ML VIAL SUBCUT SCH ×2 (10:46→21:10)
[2021-12-03] MEDS: methylPREDNISolone SOD SUC 40 MG/1 ML VIAL IV SCH ×2 (10:48→21:10)
[2021-12-03] MEDS ORDERED: LACTATED RINGERS 500 ML IV ONE (11:01)
[2021-12-03] MEDS: MIDAZOLAM 100 MG in SODIUM CHLORIDE 0.9% 80 ML IV PRN (11:20)
[2021-12-03] MEDS ORDERED: FUROSEMIDE 40 MG/4 ML VIAL ONE (11:37)
[2021-12-03] MEDS: MEROPENEM 500 MG in SODIUM CHLORIDE 0.9% 100 ML IV SCH ×2 (11:46→21:10)
[2021-12-03] MEDS: INSULIN GLARGINE 100 UNIT/ML SUBCUT SCH (11:46)
[2021-12-03] MEDS: TAMOXIFEN 10 MG TABLET PO SCH (11:47)
[2021-12-03] MEDS: GABAPENTIN 300 MG CAPSULE PO SCH ×2 (11:47→21:10)
[2021-12-03] MEDS: metOLazone 5 MG TABLET PO SCH (11:48)
[2021-12-03] MEDS: allopurinoL 300 MG TABLET PO SCH (11:48)
[2021-12-03 11:58] LABS: Arterial Base Excess iSTAT -4 MMOL/L (-2.5-2.5); Arterial Bicarbonate iSTAT 22.4 MMOL/L (20-26); Arterial O2 Saturation iSTAT 88 % (95-100); Arterial PCO2 iSTAT 44 MM HG (35-48); Arterial PO2 iSTAT 59 MM HG (80-95); Arterial Total CO2 iSTAT 24 MMO/L (23-27); Arterial pH iSTAT 7.317 (7.35-7.45)
[2021-12-03] MEDS: FERROUS SULFATE 325 MG TABLET PO SCH ×2 (12:00→21:10)
[2021-12-03] MEDS: MUPIROCIN 2% OINT 22 GM TUBE TOP SCH ×3 (14:30→21:10)
[2021-12-03] MEDS ORDERED: POLYETHYLENE GLYCOL POWDER 17 GM PACK PO PRN (14:39)
[2021-12-03] MEDS: DILTIAZEM 90 MG TABLET PO SCH ×2 (15:25→21:10)
[2021-12-03] MEDS: guaiFENesin 200 MG/10 ML UDCUP PO SCH ×3 (15:25→21:10)
[2021-12-03] MEDS ORDERED: FUROSEMIDE 40 MG/4 ML VIAL IV SCH (16:00)
[2021-12-03] MEDS: INSULIN LISPRO 100 UNIT/ML SUBCUT SCH ×2 (17:11→17:42)
[2021-12-03] MEDS: DILTIAZEM CD 120 MG CAPSULE PO SCH (17:12)
[2021-12-03] MEDS: FUROSEMIDE 40 MG/4 ML VIAL IV SCH (17:12)
[2021-12-03] MEDS: MULTIVITAMIN (CENTRUM) TABLET PO SCH (17:12)
[2021-12-03] MEDS: PANTOPRAZOLE 40 MG TABLET PO SCH (17:13)
[2021-12-03] MEDS: POLYETHYLENE GLYCOL POWDER 17 GM PACK PO SCH (17:13)
[2021-12-03] MEDS: DOCUSATE SODIUM 100 MG CAPSULE PO SCH (17:13)
[2021-12-03] MEDS ORDERED: MORPHINE 2 MG/1 ML SYRINGE IV PRN (20:30)
[2021-12-03] MEDS: MENTHOL/ZINC OXIDE OINT 71 GM JAR TOP SCH (21:10)
[2021-12-03] MEDS: FUROSEMIDE 100 MG/10 ML VIAL IV SCH (21:10)
[2021-12-03] MEDS: DOCUSATE SODIUM 100 MG/10 ML UDCUP PO SCH (21:59)
[2021-12-04] MEDS: INSULIN LISPRO 100 UNIT/ML SUBCUT SCH ×5 (01:30→23:59)
[2021-12-04] MEDS: ALBUTEROL/IPRATROPIUM 3 ML NEB RESP TX SCH ×6 (03:56→22:49)
[2021-12-04] MEDS: DILTIAZEM 90 MG TABLET PO SCH ×4 (04:00→22:01)
[2021-12-04 04:03] LABS: Arterial Base Excess iSTAT -1 MMOL/L (-2.5-2.5); Arterial Bicarbonate iSTAT 23.8 MMOL/L (20-26); Arterial O2 Saturation iSTAT 96 % (95-100); Arterial PCO2 iSTAT 38 MM HG (35-48); Arterial PO2 iSTAT 82 MM HG (80-95); Arterial Total CO2 iSTAT 25 MMO/L (23-27); Arterial pH iSTAT 7.402 (7.35-7.45)
[2021-12-04 05:53] LABS: Basophils % 0.1 % (0.0-0.8); Hematocrit 25.4 VOL% (35.7-47.0); Hemoglobin 9.2 GM/DL (12.0-16.0); Immature Granulocytes % 1.4 %; Immature Granulocytes Absolute 0.26 #; Lymphocytes # 0.2 10*3/uL (1.4-4.0); Lymphocytes % 1.1 % (21.3-54.2); Mean Corpuscular HGB Conc 36.2 GM/DL (32-36); Mean Corpuscular Volume 73.8 FL (87-102); Monocytes # 0.5 10*3/uL (0.11-0.8); Monocytes % 2.5 % (1.7-12.7); NRBC # 0.33 10*3/uL; Neutrophils % 94.9 % (38.7-73.9); Platelet Count 337 T/CUMM (130-400); Red Blood Count 3.44 MC/CUMM (3.8-5.5); White Blood Count 18.4 T/CUMM (4-12)
[2021-12-04 06:11] LABS: Bilirubin,Total 0.4 MG/DL (0.20-1.00); Calcium 8.5 MG/DL (8.5-10.1); Osmolality,Calculated 296.9 MOS/KG (273-304); Potassium 4.2 MMOL/L (3.5-5.1); Total Protein 5.6 G/DL (6.4-8.2)
[2021-12-04 06:21] LABS: Hypochromia Slight; Lymphocytes 2 % (20-55); Microcytosis Slight; Nucleated Red Blood Cells 1 /100 WBC (0-5); Platelet Estimate Adequate; Target Cells Few; Total Cells Counted 100
[2021-12-04] MEDS: BUDESONIDE 0.5 MG/2 ML NEB RESP TX SCH ×2 (07:41→20:06)
[2021-12-04 08:08] LABS: Arterial Base Excess iSTAT 0 MMOL/L (-2.5-2.5); Arterial Bicarbonate iSTAT 24.2 MMOL/L (20-26); Arterial O2 Saturation iSTAT 96 % (95-100); Arterial PCO2 iSTAT 38 MM HG (35-48); Arterial PO2 iSTAT 80 MM HG (80-95); Arterial Total CO2 iSTAT 25 MMO/L (23-27); Arterial pH iSTAT 7.411 (7.35-7.45)
[2021-12-04] MEDS: MENTHOL/ZINC OXIDE OINT 71 GM JAR TOP SCH ×2 (09:20→22:01)
[2021-12-04] MEDS: MEROPENEM 500 MG in SODIUM CHLORIDE 0.9% 100 ML IV SCH ×2 (09:34→22:06)
[2021-12-04] MEDS: PANTOPRAZOLE 40 MG VIAL IV SCH (09:37)
[2021-12-04] MEDS: methylPREDNISolone SOD SUC 40 MG/1 ML VIAL IV SCH ×2 (09:37→22:01)
[2021-12-04] MEDS: guaiFENesin 200 MG/10 ML UDCUP PO SCH ×3 (09:39→22:07)
[2021-12-04] MEDS: MULTIVITAMIN LIQUID (CENTRUM) 60 ML BOTTLE PO SCH (09:39)
[2021-12-04] MEDS: DOCUSATE SODIUM 100 MG/10 ML UDCUP PO SCH ×2 (09:40→22:02)
[2021-12-04] MEDS: allopurinoL 300 MG TABLET PO SCH (09:40)
[2021-12-04] MEDS: TAMOXIFEN 10 MG TABLET PO SCH (09:40)
[2021-12-04] MEDS: metOLazone 5 MG TABLET PO SCH (09:41)
[2021-12-04] MEDS: GABAPENTIN 300 MG CAPSULE PO SCH ×2 (09:41→22:07)
[2021-12-04] MEDS: FERROUS SULFATE 325 MG TABLET PO SCH ×2 (09:41→22:06)
[2021-12-04] MEDS: HEPARIN 5,000 UNIT/1 ML VIAL SUBCUT SCH ×2 (09:42→22:06)
[2021-12-04] MEDS: MUPIROCIN 2% OINT 22 GM TUBE TOP SCH ×3 (09:43→21:58)
[2021-12-04] MEDS: INSULIN GLARGINE 100 UNIT/ML SUBCUT SCH (09:43)
[2021-12-04] MEDS: FUROSEMIDE 100 MG/10 ML VIAL IV SCH ×2 (09:44→22:28)
[2021-12-04 14:06] LABS: Hepatitis B Core IgM Quant 0.24 Index; Hepatitis B Surface Ag Quant < 0.10 Index; Hepatitis B Surface Ag Result Non-Reactive (NonReactive); Hepatitis C Virus Ab Quant 0.05 Index; Hepatitis C Virus Ab Result Non-Reactive (NonReactive)
[2021-12-04] MEDS ORDERED: HEPARIN 10,000 UNIT/10 ML VIAL IV SCH (17:15)
[2021-12-04] MEDS: MIDAZOLAM 100 MG in SODIUM CHLORIDE 0.9% 80 ML IV PRN (22:08)
[2021-12-05 02:48] LABS: Basophils % 0.1 % (0.0-0.8); Hematocrit 24.4 VOL% (35.7-47.0); Hemoglobin 8.8 GM/DL (12.0-16.0); Immature Granulocytes % 1.1 %; Immature Granulocytes Absolute 0.19 #; Lymphocytes # 0.1 10*3/uL (1.4-4.0); Lymphocytes % 0.7 % (21.3-54.2); Mean Corpuscular HGB Conc 36.1 GM/DL (32-36); Mean Corpuscular Volume 73.1 FL (87-102); Mean Platelet Volume 9.6 FL (9.6-12.0); Monocytes # 0.5 10*3/uL (0.11-0.8); Monocytes % 2.7 % (1.7-12.7); NRBC # 0.37 10*3/uL; Neutrophils % 95.4 % (38.7-73.9); Platelet Count 289 T/CUMM (130-400); Red Blood Count 3.34 MC/CUMM (3.8-5.5); Red Cell Distribution Width 17.2 % (9.3-17.3); White Blood Count 16.8 T/CUMM (4-12)
[2021-12-05 03:08] LABS: Albumin 2.1 G/DL (3.4-5.0); Bilirubin,Total 0.4 MG/DL (0.20-1.00); Calcium 8.4 MG/DL (8.5-10.1); Osmolality,Calculated 295.2 MOS/KG (273-304); Potassium 3.9 MMOL/L (3.5-5.1); Total Protein 5.8 G/DL (6.4-8.2)
[2021-12-05 03:18] LABS: Hypochromia Slight; Lymphocytes 1 % (20-55); Microcytosis Slight; Nucleated Red Blood Cells 1 /100 WBC (0-5); Platelet Estimate Adequate; Target Cells Few; Total Cells Counted 100
[2021-12-05] MEDS: ALBUTEROL/IPRATROPIUM 3 ML NEB RESP TX SCH ×6 (03:50→23:00)
[2021-12-05 04:09] LABS: Arterial Base Excess iSTAT 2 MMOL/L (-2.5-2.5); Arterial Bicarbonate iSTAT 25.5 MMOL/L (20-26); Arterial O2 Saturation iSTAT 99 % (95-100); Arterial PCO2 iSTAT 37 MM HG (35-48); Arterial PO2 iSTAT 113 MM HG (80-95); Arterial Total CO2 iSTAT 27 MMO/L (23-27); Arterial pH iSTAT 7.453 (7.35-7.45)
[2021-12-05] MEDS: DILTIAZEM 90 MG TABLET PO SCH ×4 (04:10→20:53)
[2021-12-05] MEDS: INSULIN LISPRO 100 UNIT/ML SUBCUT SCH ×3 (06:02→17:59)
[2021-12-05] MEDS: BUDESONIDE 0.5 MG/2 ML NEB RESP TX SCH ×2 (07:29→20:15)
[2021-12-05] MEDS: DOCUSATE SODIUM 100 MG/10 ML UDCUP PO SCH ×2 (08:43→20:53)
[2021-12-05] MEDS: allopurinoL 300 MG TABLET PO SCH (08:43)
[2021-12-05] MEDS: FERROUS SULFATE 325 MG TABLET PO SCH ×2 (08:43→20:53)
[2021-12-05] MEDS: TAMOXIFEN 10 MG TABLET PO SCH (08:43)
[2021-12-05] MEDS: guaiFENesin 200 MG/10 ML UDCUP PO SCH ×3 (08:43→20:53)
[2021-12-05] MEDS: HEPARIN 5,000 UNIT/1 ML VIAL SUBCUT SCH ×2 (08:44→20:54)
[2021-12-05] MEDS: GABAPENTIN 300 MG CAPSULE PO SCH ×2 (08:44→20:53)
[2021-12-05] MEDS: PANTOPRAZOLE 40 MG VIAL IV SCH (08:44)
[2021-12-05] MEDS: INSULIN GLARGINE 100 UNIT/ML SUBCUT SCH (08:44)
[2021-12-05] MEDS: methylPREDNISolone SOD SUC 40 MG/1 ML VIAL IV SCH ×2 (08:44→20:54)
[2021-12-05] MEDS: MENTHOL/ZINC OXIDE OINT 71 GM JAR TOP SCH ×2 (08:45→20:54)
[2021-12-05] MEDS: MEROPENEM 500 MG in SODIUM CHLORIDE 0.9% 100 ML IV SCH ×2 (08:45→20:52)
[2021-12-05] MEDS: MUPIROCIN 2% OINT 22 GM TUBE TOP SCH ×3 (08:46→20:55)
[2021-12-05] MEDS: MULTIVITAMIN LIQUID (CENTRUM) 60 ML BOTTLE PO SCH (08:56)
[2021-12-05] MEDS ORDERED: ALBUMIN 25% 25 GM/100 ML VIAL IV ONE (10:00)
[2021-12-05] MEDS: MIDAZOLAM 100 MG in SODIUM CHLORIDE 0.9% 80 ML IV PRN (17:58)
[2021-12-06] MEDS: INSULIN LISPRO 100 UNIT/ML SUBCUT SCH ×5 (00:50→23:21)
[2021-12-06] MEDS: ALBUTEROL/IPRATROPIUM 3 ML NEB RESP TX SCH ×7 (03:00→23:02)
[2021-12-06 03:45] LABS: Arterial Base Excess iSTAT 1 MMOL/L (-2.5-2.5); Arterial Bicarbonate iSTAT 25.1 MMOL/L (20-26); Arterial O2 Saturation iSTAT 96 % (95-100); Arterial PCO2 iSTAT 37 MM HG (35-48); Arterial PO2 iSTAT 76 MM HG (80-95); Arterial Total CO2 iSTAT 26 MMO/L (23-27); Arterial pH iSTAT 7.436 (7.35-7.45)
[2021-12-06] MEDS: DILTIAZEM 90 MG TABLET PO SCH ×4 (03:50→20:33)
[2021-12-06 04:43] LABS: Basophils % 0.1 % (0.0-0.8); Hematocrit 23.1 VOL% (35.7-47.0); Hemoglobin 8.3 GM/DL (12.0-16.0); Immature Granulocytes Absolute 0.15 #; Lymphocytes # 0.2 10*3/uL (1.4-4.0); Lymphocytes % 1.2 % (21.3-54.2); Mean Corpuscular HGB Conc 35.9 GM/DL (32-36); Mean Corpuscular Volume 73.6 FL (87-102); Mean Platelet Volume 10.4 FL (9.6-12.0); Monocytes # 0.5 10*3/uL (0.11-0.8); NRBC # 0.22 10*3/uL; Neutrophils % 94.7 % (38.7-73.9); Platelet Count 247 T/CUMM (130-400); Red Blood Count 3.14 MC/CUMM (3.8-5.5); Red Cell Distribution Width 17.2 % (9.3-17.3); White Blood Count 15.2 T/CUMM (4-12)
[2021-12-06 05:04] LABS: Albumin 2.3 G/DL (3.4-5.0); Bilirubin,Total 0.6 MG/DL (0.20-1.00); Calcium 8.1 MG/DL (8.5-10.1); Total Protein 5.7 G/DL (6.4-8.2)
[2021-12-06 05:08] LABS: Phosphorous 3.6 MG/DL (2.5-4.9)
[2021-12-06 05:18] LABS: Lymphocytes 2 % (20-55); Nucleated Red Blood Cells 3 /100 WBC (0-5); Polychromasia Slight; Target Cells 3+; Total Cells Counted 100
[2021-12-06 05:19] LABS: Platelet Estimate Normal
[2021-12-06] MEDS: BUDESONIDE 0.5 MG/2 ML NEB RESP TX SCH ×2 (07:00→19:53)
[2021-12-06] MEDS: INSULIN GLARGINE 100 UNIT/ML SUBCUT SCH (08:25)
[2021-12-06] MEDS: methylPREDNISolone SOD SUC 40 MG/1 ML VIAL IV SCH ×2 (08:25→20:34)
[2021-12-06] MEDS: HEPARIN 5,000 UNIT/1 ML VIAL SUBCUT SCH ×2 (08:25→20:33)
[2021-12-06] MEDS: PANTOPRAZOLE 40 MG VIAL IV SCH (08:25)
[2021-12-06] MEDS: guaiFENesin 200 MG/10 ML UDCUP PO SCH ×3 (08:26→20:33)
[2021-12-06] MEDS: MEROPENEM 500 MG in SODIUM CHLORIDE 0.9% 100 ML IV SCH (08:26)
[2021-12-06] MEDS: DOCUSATE SODIUM 100 MG/10 ML UDCUP PO SCH ×2 (08:26→20:33)
[2021-12-06] MEDS: GABAPENTIN 300 MG CAPSULE PO SCH ×2 (08:26→20:33)
[2021-12-06] MEDS: FERROUS SULFATE 325 MG TABLET PO SCH ×2 (08:26→20:33)
[2021-12-06] MEDS ORDERED: ALBUMIN 25% 12.5 GM/50 ML VIAL IV ONE (08:26)
[2021-12-06] MEDS: MULTIVITAMIN LIQUID (CENTRUM) 60 ML BOTTLE PO SCH (08:27)
[2021-12-06] MEDS: MUPIROCIN 2% OINT 22 GM TUBE TOP SCH ×3 (08:27→20:34)
[2021-12-06] MEDS: MENTHOL/ZINC OXIDE OINT 71 GM JAR TOP SCH ×2 (08:27→20:34)
[2021-12-06] MEDS: allopurinoL 300 MG TABLET PO SCH (08:27)
[2021-12-06] MEDS: TAMOXIFEN 10 MG TABLET PO SCH (08:27)
[2021-12-06] MEDS: MIDAZOLAM 100 MG in SODIUM CHLORIDE 0.9% 80 ML IV PRN (16:13)
[2021-12-07] MEDS: ALBUTEROL/IPRATROPIUM 3 ML NEB RESP TX SCH ×6 (03:20→23:00)
[2021-12-07 03:33] LABS: Arterial Base Excess iSTAT 0 MMOL/L (-2.5-2.5); Arterial Bicarbonate iSTAT 24.9 MMOL/L (20-26); Arterial O2 Saturation iSTAT 99 % (95-100); Arterial PCO2 iSTAT 41 MM HG (35-48); Arterial PO2 iSTAT 148 MM HG (80-95); Arterial Total CO2 iSTAT 26 MMO/L (23-27); Arterial pH iSTAT 7.396 (7.35-7.45)
[2021-12-07] MEDS: DILTIAZEM 90 MG TABLET PO SCH ×4 (04:01→21:00)
[2021-12-07 04:59] LABS: Basophils % 0.1 % (0.0-0.8); Eosinophils % 0.1 % (0.00-10.9); Hematocrit 23.8 VOL% (35.7-47.0); Hemoglobin 8.5 GM/DL (12.0-16.0); Immature Granulocytes % 0.7 %; Immature Granulocytes Absolute 0.14 #; Lymphocytes # 0.3 10*3/uL (1.4-4.0); Lymphocytes % 1.6 % (21.3-54.2); Mean Corpuscular HGB Conc 35.7 GM/DL (32-36); Mean Corpuscular Volume 74.1 FL (87-102); Mean Platelet Volume 10.6 FL (9.6-12.0); Monocytes % 5.2 % (1.7-12.7); NRBC # 0.22 10*3/uL; Neutrophils % 92.3 % (38.7-73.9); Platelet Count 206 T/CUMM (130-400); Red Blood Count 3.21 MC/CUMM (3.8-5.5); Red Cell Distribution Width 17.2 % (9.3-17.3); White Blood Count 19.5 T/CUMM (4-12)
[2021-12-07 05:24] LABS: Lymphocytes 2 % (20-55); Nucleated Red Blood Cells 1 /100 WBC (0-5); Target Cells Few; Total Cells Counted 100
[2021-12-07 05:25] LABS: Microcytosis Slight
[2021-12-07 05:27] LABS: Albumin 2.6 G/DL (3.4-5.0); Bilirubin,Total 0.4 MG/DL (0.20-1.00); Calcium 8.1 MG/DL (8.5-10.1); Osmolality,Calculated 296.1 MOS/KG (273-304); Potassium 4.2 MMOL/L (3.5-5.1); Total Protein 5.8 G/DL (6.4-8.2)
[2021-12-07] MEDS: INSULIN LISPRO 100 UNIT/ML SUBCUT SCH ×4 (05:35→23:45)
[2021-12-07] MEDS: BUDESONIDE 0.5 MG/2 ML NEB RESP TX SCH ×2 (07:47→18:59)
[2021-12-07] MEDS: HEPARIN 5,000 UNIT/1 ML VIAL SUBCUT SCH ×2 (08:30→21:00)
[2021-12-07] MEDS: methylPREDNISolone SOD SUC 40 MG/1 ML VIAL IV SCH ×2 (08:30→21:00)
[2021-12-07] MEDS: PANTOPRAZOLE 40 MG VIAL IV SCH (08:30)
[2021-12-07] MEDS: INSULIN GLARGINE 100 UNIT/ML SUBCUT SCH (08:30)
[2021-12-07] MEDS: MEROPENEM 500 MG in SODIUM CHLORIDE 0.9% 100 ML IV SCH (08:35)
[2021-12-07] MEDS: DOCUSATE SODIUM 100 MG/10 ML UDCUP PO SCH ×2 (08:40→20:59)
[2021-12-07] MEDS: GABAPENTIN 300 MG CAPSULE PO SCH ×2 (08:40→21:00)
[2021-12-07] MEDS: TAMOXIFEN 10 MG TABLET PO SCH (08:40)
[2021-12-07] MEDS: allopurinoL 300 MG TABLET PO SCH (08:40)
[2021-12-07] MEDS: MULTIVITAMIN LIQUID (CENTRUM) 60 ML BOTTLE PO SCH (08:40)
[2021-12-07] MEDS: FERROUS SULFATE 325 MG TABLET PO SCH ×2 (08:40→21:00)
[2021-12-07] MEDS: guaiFENesin 200 MG/10 ML UDCUP PO SCH ×3 (08:40→20:59)
[2021-12-07] MEDS: MUPIROCIN 2% OINT 22 GM TUBE TOP SCH ×3 (09:00→20:59)
[2021-12-07] MEDS: MENTHOL/ZINC OXIDE OINT 71 GM JAR TOP SCH ×2 (11:40→20:59)
[2021-12-07] MEDS: MIDAZOLAM 100 MG in SODIUM CHLORIDE 0.9% 80 ML IV PRN (15:00)
[2021-12-08] MEDS: ALBUTEROL/IPRATROPIUM 3 ML NEB RESP TX SCH ×6 (03:49→22:54)
[2021-12-08 03:53] LABS: Arterial Base Excess iSTAT -1 MMOL/L (-2.5-2.5); Arterial Bicarbonate iSTAT 24.2 MMOL/L (20-26); Arterial O2 Saturation iSTAT 99 % (95-100); Arterial PCO2 iSTAT 43 MM HG (35-48); Arterial PO2 iSTAT 120 MM HG (80-95); Arterial Total CO2 iSTAT 25 MMO/L (23-27)
[2021-12-08] MEDS: DILTIAZEM 90 MG TABLET PO SCH ×4 (04:05→21:34)
[2021-12-08 04:38] LABS: Basophils % 0.1 % (0.0-0.8); Hematocrit 22.8 VOL% (35.7-47.0); Hemoglobin 8.2 GM/DL (12.0-16.0); Immature Granulocytes % 1.1 %; Lymphocytes # 0.2 10*3/uL (1.4-4.0); Lymphocytes % 1.2 % (21.3-54.2); Mean Corpuscular Volume 74.5 FL (87-102); Mean Platelet Volume 10.9 FL (9.6-12.0); Monocytes # 0.5 10*3/uL (0.11-0.8); Monocytes % 2.7 % (1.7-12.7); NRBC # 0.18 10*3/uL; Neutrophils % 94.9 % (38.7-73.9); Platelet Count 189 T/CUMM (130-400); Red Blood Count 3.06 MC/CUMM (3.8-5.5); Red Cell Distribution Width 17.4 % (9.3-17.3); White Blood Count 18.2 T/CUMM (4-12)
[2021-12-08 04:47] LABS: Calcium 8.3 MG/DL (8.5-10.1); Osmolality,Calculated 305.2 MOS/KG (273-304); Potassium 4.9 MMOL/L (3.5-5.1)
[2021-12-08] MEDS: INSULIN LISPRO 100 UNIT/ML SUBCUT SCH ×4 (06:50→23:51)
[2021-12-08 06:52] LABS: Hypochromia 1+; Lymphocytes 2 % (20-55); Microcytosis 1+; Nucleated Red Blood Cells 1 /100 WBC (0-5); Total Cells Counted 100
[2021-12-08 06:53] LABS: Anisocytosis 1+; Polychromasia Slight; Target Cells 1+
[2021-12-08] MEDS: BUDESONIDE 0.5 MG/2 ML NEB RESP TX SCH ×2 (07:15→19:09)
[2021-12-08] MEDS: MUPIROCIN 2% OINT 22 GM TUBE TOP SCH ×3 (09:00→21:34)
[2021-12-08] MEDS: HEPARIN 5,000 UNIT/1 ML VIAL SUBCUT SCH ×2 (09:35→21:34)
[2021-12-08] MEDS: methylPREDNISolone SOD SUC 40 MG/1 ML VIAL IV SCH ×2 (09:40→21:33)
[2021-12-08] MEDS: PANTOPRAZOLE 40 MG VIAL IV SCH (09:40)
[2021-12-08] MEDS: MEROPENEM 500 MG in SODIUM CHLORIDE 0.9% 100 ML IV SCH (09:45)
[2021-12-08] MEDS: FERROUS SULFATE 325 MG TABLET PO SCH ×2 (09:50→21:34)
[2021-12-08] MEDS: allopurinoL 300 MG TABLET PO SCH (09:50)
[2021-12-08] MEDS: MULTIVITAMIN LIQUID (CENTRUM) 60 ML BOTTLE PO SCH (09:50)
[2021-12-08] MEDS: GABAPENTIN 300 MG CAPSULE PO SCH ×2 (09:50→21:34)
[2021-12-08] MEDS: TAMOXIFEN 10 MG TABLET PO SCH (09:50)
[2021-12-08] MEDS: INSULIN GLARGINE 100 UNIT/ML SUBCUT SCH (09:50)
[2021-12-08] MEDS: DOCUSATE SODIUM 100 MG/10 ML UDCUP PO SCH ×2 (09:50→21:34)
[2021-12-08] MEDS: guaiFENesin 200 MG/10 ML UDCUP PO SCH ×3 (09:50→21:34)
[2021-12-08] MEDS: MENTHOL/ZINC OXIDE OINT 71 GM JAR TOP SCH ×2 (11:45→21:34)
[2021-12-08] MEDS: MIDAZOLAM 100 MG in SODIUM CHLORIDE 0.9% 80 ML IV PRN (15:05)
[2021-12-09] MEDS: ALBUTEROL/IPRATROPIUM 3 ML NEB RESP TX SCH ×6 (02:34→22:48)
[2021-12-09] MEDS: DILTIAZEM 90 MG TABLET PO SCH ×4 (03:32→20:31)
[2021-12-09 04:01] LABS: Arterial Base Excess iSTAT -1 MMOL/L (-2.5-2.5); Arterial Bicarbonate iSTAT 24.3 MMOL/L (20-26); Arterial O2 Saturation iSTAT 97 % (95-100); Arterial PCO2 iSTAT 40 MM HG (35-48); Arterial PO2 iSTAT 93 MM HG (80-95); Arterial Total CO2 iSTAT 25 MMO/L (23-27); Arterial pH iSTAT 7.387 (7.35-7.45)
[2021-12-09 04:30] LABS: Basophils % 0.1 % (0.0-0.8); Eosinophils % 0.1 % (0.00-10.9); Hematocrit 22.7 VOL% (35.7-47.0); Immature Granulocytes % 1.4 %; Immature Granulocytes Absolute 0.28 #; Lymphocytes # 0.3 10*3/uL (1.4-4.0); Lymphocytes % 1.4 % (21.3-54.2); Mean Corpuscular HGB Conc 35.2 GM/DL (32-36); Mean Corpuscular Volume 75.4 FL (87-102); Mean Platelet Volume 11.2 FL (9.6-12.0); Monocytes # 0.7 10*3/uL (0.11-0.8); Monocytes % 3.4 % (1.7-12.7); Neutrophils % 93.6 % (38.7-73.9); Platelet Count 200 T/CUMM (130-400); Red Blood Count 3.01 MC/CUMM (3.8-5.5); Red Cell Distribution Width 17.8 % (9.3-17.3)
[2021-12-09 05:01] LABS: Calcium 8.2 MG/DL (8.5-10.1); Osmolality,Calculated 307.1 MOS/KG (273-304); Potassium 4.6 MMOL/L (3.5-5.1)
[2021-12-09 05:44] LABS: Hypochromia 1+; Lymphocytes 2 % (20-55); Nucleated Red Blood Cells 4 /100 WBC (0-5); Total Cells Counted 100
[2021-12-09 05:45] LABS: Microcytosis 1+; Polychromasia Slight; Target Cells Few
[2021-12-09 05:46] LABS: Platelet Estimate Normal
[2021-12-09] MEDS: INSULIN LISPRO 100 UNIT/ML SUBCUT SCH ×3 (06:00→18:15)
[2021-12-09] MEDS: BUDESONIDE 0.5 MG/2 ML NEB RESP TX SCH ×2 (07:12→19:08)
[2021-12-09] MEDS: DOCUSATE SODIUM 100 MG/10 ML UDCUP PO SCH ×2 (09:50→20:31)
[2021-12-09] MEDS: TAMOXIFEN 10 MG TABLET PO SCH (09:50)
[2021-12-09] MEDS: guaiFENesin 200 MG/10 ML UDCUP PO SCH ×3 (09:50→20:31)
[2021-12-09] MEDS: GABAPENTIN 300 MG CAPSULE PO SCH ×2 (09:51→20:31)
[2021-12-09] MEDS: FERROUS SULFATE 325 MG TABLET PO SCH ×2 (09:51→20:31)
[2021-12-09] MEDS: allopurinoL 300 MG TABLET PO SCH (09:51)
[2021-12-09] MEDS: HEPARIN 5,000 UNIT/1 ML VIAL SUBCUT SCH ×2 (09:52→20:31)
[2021-12-09] MEDS: INSULIN GLARGINE 100 UNIT/ML SUBCUT SCH (09:52)
[2021-12-09] MEDS: MULTIVITAMIN LIQUID (CENTRUM) 60 ML BOTTLE PO SCH (09:52)
[2021-12-09] MEDS: MUPIROCIN 2% OINT 22 GM TUBE TOP SCH ×3 (09:53→20:31)
[2021-12-09] MEDS: MENTHOL/ZINC OXIDE OINT 71 GM JAR TOP SCH ×2 (09:53→20:31)
[2021-12-09] MEDS: MEROPENEM 500 MG in SODIUM CHLORIDE 0.9% 100 ML IV SCH (09:54)
[2021-12-09] MEDS: PANTOPRAZOLE 40 MG VIAL IV SCH (09:57)
[2021-12-09] MEDS: methylPREDNISolone SOD SUC 40 MG/1 ML VIAL IV SCH ×2 (10:02→20:31)
[2021-12-09] MEDS: FLUCONAZOLE 40 MG/ML 35 ML/BOTTLE PO SCH (12:10)
[2021-12-09] MEDS: MIDAZOLAM 100 MG in SODIUM CHLORIDE 0.9% 80 ML IV PRN (14:16)
[2021-12-10] MEDS: INSULIN LISPRO 100 UNIT/ML SUBCUT SCH ×4 (00:37→18:27)
[2021-12-10 01:18] LABS: Arterial Base Excess iSTAT -1 MMOL/L (-2.5-2.5); Arterial Bicarbonate iSTAT 23.2 MMOL/L (20-26); Arterial O2 Saturation iSTAT 96 % (95-100); Arterial PCO2 iSTAT 37 MM HG (35-48); Arterial PO2 iSTAT 83 MM HG (80-95); Arterial Total CO2 iSTAT 24 MMO/L (23-27); Arterial pH iSTAT 7.401 (7.35-7.45)
[2021-12-10] MEDS: DILTIAZEM 90 MG TABLET PO SCH ×4 (03:41→20:56)
[2021-12-10 03:50] LABS: Basophils % 0.1 % (0.0-0.8); Hematocrit 22.5 VOL% (35.7-47.0); Hemoglobin 8.1 GM/DL (12.0-16.0); Immature Granulocytes % 2.1 %; Immature Granulocytes Absolute 0.49 #; Lymphocytes # 0.3 10*3/uL (1.4-4.0); Lymphocytes % 1.1 % (21.3-54.2); Mean Corpuscular Volume 74.8 FL (87-102); Monocytes # 0.8 10*3/uL (0.11-0.8); Monocytes % 3.5 % (1.7-12.7); NRBC # 0.28 10*3/uL; Neutrophils % 93.2 % (38.7-73.9); Platelet Count 225 T/CUMM (130-400); Red Blood Count 3.01 MC/CUMM (3.8-5.5); Red Cell Distribution Width 18.3 % (9.3-17.3); White Blood Count 23.5 T/CUMM (4-12)
[2021-12-10] MEDS: ALBUTEROL/IPRATROPIUM 3 ML NEB RESP TX SCH ×6 (04:00→23:49)
[2021-12-10 04:07] LABS: Hypochromia Slight; Lymphocytes 2 % (20-55); Microcytosis Slight; Platelet Estimate Adequate; Total Cells Counted 100
[2021-12-10 04:08] LABS: Target Cells Few
[2021-12-10 04:12] LABS: Calcium 8.1 MG/DL (8.5-10.1); Osmolality,Calculated 310.2 MOS/KG (273-304); Potassium 4.4 MMOL/L (3.5-5.1)
[2021-12-10 04:37] LABS: Arterial Base Excess iSTAT 0 MMOL/L (-2.5-2.5); Arterial Bicarbonate iSTAT 24.1 MMOL/L (20-26); Arterial O2 Saturation iSTAT 95 % (95-100); Arterial PCO2 iSTAT 38 MM HG (35-48); Arterial PO2 iSTAT 74 MM HG (80-95); Arterial Total CO2 iSTAT 25 MMO/L (23-27); Arterial pH iSTAT 7.408 (7.35-7.45)
[2021-12-10] MEDS: BUDESONIDE 0.5 MG/2 ML NEB RESP TX SCH ×2 (07:38→19:09)
[2021-12-10] MEDS: allopurinoL 300 MG TABLET PO SCH (09:07)
[2021-12-10] MEDS: MEROPENEM 500 MG in SODIUM CHLORIDE 0.9% 100 ML IV SCH (09:07)
[2021-12-10] MEDS: DOCUSATE SODIUM 100 MG/10 ML UDCUP PO SCH ×2 (09:07→20:56)
[2021-12-10] MEDS: GABAPENTIN 300 MG CAPSULE PO SCH ×2 (09:07→20:57)
[2021-12-10] MEDS: guaiFENesin 200 MG/10 ML UDCUP PO SCH ×3 (09:07→20:56)
[2021-12-10] MEDS: FERROUS SULFATE 325 MG TABLET PO SCH ×2 (09:07→20:56)
[2021-12-10] MEDS: methylPREDNISolone SOD SUC 40 MG/1 ML VIAL IV SCH ×2 (09:08→20:57)
[2021-12-10] MEDS: HEPARIN 5,000 UNIT/1 ML VIAL SUBCUT SCH ×2 (09:08→20:57)
[2021-12-10] MEDS: PANTOPRAZOLE 40 MG VIAL IV SCH (09:09)
[2021-12-10] MEDS: FLUCONAZOLE 40 MG/ML 35 ML/BOTTLE PO SCH (09:11)
[2021-12-10] MEDS: TAMOXIFEN 10 MG TABLET PO SCH (09:21)
[2021-12-10] MEDS: INSULIN GLARGINE 100 UNIT/ML SUBCUT SCH (09:40)
[2021-12-10] MEDS: MULTIVITAMIN LIQUID (CENTRUM) 60 ML BOTTLE PO SCH (14:49)
[2021-12-10] MEDS: MENTHOL/ZINC OXIDE OINT 71 GM JAR TOP SCH ×2 (14:49→20:56)
[2021-12-10] MEDS: MUPIROCIN 2% OINT 22 GM TUBE TOP SCH ×3 (14:49→20:56)
[2021-12-10] MEDS: MIDAZOLAM 100 MG in SODIUM CHLORIDE 0.9% 80 ML IV PRN (15:50)
[2021-12-11] MEDS: INSULIN LISPRO 100 UNIT/ML SUBCUT SCH ×4 (00:40→18:20)
[2021-12-11] MEDS: DILTIAZEM 90 MG TABLET PO SCH ×4 (02:55→20:28)
[2021-12-11 03:53] LABS: Basophils % 0.2 % (0.0-0.8); Hematocrit 23.9 VOL% (35.7-47.0); Hemoglobin 8.6 GM/DL (12.0-16.0); Immature Granulocytes % 3.1 %; Immature Granulocytes Absolute 0.81 #; Lymphocytes # 0.3 10*3/uL (1.4-4.0); Mean Corpuscular Volume 75.4 FL (87-102); Monocytes # 0.9 10*3/uL (0.11-0.8); Monocytes % 3.5 % (1.7-12.7); Neutrophils % 92.2 % (38.7-73.9); Platelet Count 245 T/CUMM (130-400); Red Blood Count 3.17 MC/CUMM (3.8-5.5); Red Cell Distribution Width 18.8 % (9.3-17.3); White Blood Count 25.8 T/CUMM (4-12)
[2021-12-11 04:11] LABS: Arterial Base Excess iSTAT -1 MMOL/L (-2.5-2.5); Arterial Bicarbonate iSTAT 22.9 MMOL/L (20-26); Arterial O2 Saturation iSTAT 90 % (95-100); Arterial PCO2 iSTAT 34 MM HG (35-48); Arterial PO2 iSTAT 56 MM HG (80-95); Arterial Total CO2 iSTAT 24 MMO/L (23-27); Arterial pH iSTAT 7.439 (7.35-7.45)
[2021-12-11 04:18] LABS: Hypochromia 1+; Lymphocytes 4 % (20-55); Microcytosis Slight; Nucleated Red Blood Cells 1 /100 WBC (0-5); Platelet Estimate Adequate; Target Cells Few; Total Cells Counted 100
[2021-12-11] MEDS: ALBUTEROL/IPRATROPIUM 3 ML NEB RESP TX SCH ×6 (04:24→22:31)
[2021-12-11 04:28] LABS: Calcium 7.9 MG/DL (8.5-10.1); Potassium 3.8 MMOL/L (3.5-5.1)
[2021-12-11] MEDS: BUDESONIDE 0.5 MG/2 ML NEB RESP TX SCH ×2 (07:10→19:14)
[2021-12-11] MEDS: PANTOPRAZOLE 40 MG VIAL IV SCH (09:58)
[2021-12-11] MEDS: methylPREDNISolone SOD SUC 40 MG/1 ML VIAL IV SCH ×2 (09:58→20:29)
[2021-12-11] MEDS: MEROPENEM 500 MG in SODIUM CHLORIDE 0.9% 100 ML IV SCH (09:59)
[2021-12-11] MEDS: HEPARIN 5,000 UNIT/1 ML VIAL SUBCUT SCH ×2 (10:00→21:28)
[2021-12-11] MEDS: allopurinoL 300 MG TABLET PO SCH (10:01)
[2021-12-11] MEDS: INSULIN GLARGINE 100 UNIT/ML SUBCUT SCH (10:01)
[2021-12-11] MEDS: TAMOXIFEN 10 MG TABLET PO SCH (10:02)
[2021-12-11] MEDS: DOCUSATE SODIUM 100 MG/10 ML UDCUP PO SCH ×2 (10:02→20:28)
[2021-12-11] MEDS: guaiFENesin 200 MG/10 ML UDCUP PO SCH ×3 (10:02→20:28)
[2021-12-11] MEDS: FERROUS SULFATE 325 MG TABLET PO SCH ×2 (10:04→20:28)
[2021-12-11] MEDS: GABAPENTIN 300 MG CAPSULE PO SCH ×2 (10:04→20:28)
[2021-12-11] MEDS: MUPIROCIN 2% OINT 22 GM TUBE TOP SCH ×3 (10:23→20:28)
[2021-12-11] MEDS: MULTIVITAMIN LIQUID (CENTRUM) 60 ML BOTTLE PO SCH (10:23)
[2021-12-11] MEDS: FLUCONAZOLE 40 MG/ML 35 ML/BOTTLE PO SCH (10:23)
[2021-12-11] MEDS: MENTHOL/ZINC OXIDE OINT 71 GM JAR TOP SCH ×2 (10:23→20:29)
[2021-12-11] MEDS ORDERED: ALTEPLASE 2 MG VIAL INTRACATH ONE (11:03)
[2021-12-11 20:29] VITALS: BP 127/45
[2021-12-11] MEDS ORDERED: ACETYLCYSTEINE 20% 800 MG/4 ML VIAL RESP TX SCH (23:00)
[2021-12-12 00:23] LABS: Arterial Base Excess iSTAT -3 MMOL/L (-2.5-2.5); Arterial Bicarbonate iSTAT 22.6 MMOL/L (20-26); Arterial O2 Saturation iSTAT 86 % (95-100); Arterial PCO2 iSTAT 44 MM HG (35-48); Arterial PO2 iSTAT 55 MM HG (80-95); Arterial Total CO2 iSTAT 24 MMO/L (23-27); Arterial pH iSTAT 7.324 (7.35-7.45)
[2021-12-12] MEDS: INSULIN LISPRO 100 UNIT/ML SUBCUT SCH ×2 (00:49→05:26)
[2021-12-12] MEDS: ALBUTEROL/IPRATROPIUM 3 ML NEB RESP TX SCH (02:39)
[2021-12-12 02:57] LABS: Arterial Base Excess iSTAT -5 MMOL/L (-2.5-2.5); Arterial Bicarbonate iSTAT 20.4 MMOL/L (20-26); Arterial O2 Saturation iSTAT 94 % (95-100); Arterial PCO2 iSTAT 38 MM HG (35-48); Arterial PO2 iSTAT 74 MM HG (80-95); Arterial Total CO2 iSTAT 22 MMO/L (23-27); Arterial pH iSTAT 7.342 (7.35-7.45)
[2021-12-12] MEDS: DILTIAZEM 90 MG TABLET PO SCH (03:28)
[2021-12-12 04:04] LABS: Basophils # 0.1 10*3/uL (0.0-0.2); Basophils % 0.2 % (0.0-0.8); Hematocrit 23.3 VOL% (35.7-47.0); Hemoglobin 8.1 GM/DL (12.0-16.0); Immature Granulocytes % 5.2 %; Immature Granulocytes Absolute 1.64 #; Lymphocytes # 0.6 10*3/uL (1.4-4.0); Lymphocytes % 1.9 % (21.3-54.2); Mean Corpuscular HGB Conc 34.8 GM/DL (32-36); Mean Corpuscular Volume 77.4 FL (87-102); NRBC # 1.98 10*3/uL; Neutrophils % 89.7 % (38.7-73.9); Platelet Count 203 T/CUMM (130-400); Red Blood Count 3.01 MC/CUMM (3.8-5.5); Red Cell Distribution Width 19.4 % (9.3-17.3); White Blood Count 31.8 T/CUMM (4-12)
[2021-12-12 04:18] LABS: Calcium 7.7 MG/DL (8.5-10.1); Osmolality,Calculated 297.8 MOS/KG (273-304); Potassium 4.4 MMOL/L (3.5-5.1)
[2021-12-12 04:23] LABS: Hypochromia 1+; Lymphocytes 2 % (20-55); Microcytosis 1+; Nucleated Red Blood Cells 8 /100 WBC (0-5); Platelet Estimate Adequate; Target Cells Slight; Total Cells Counted 100
[2021-12-12 06:46] LABS: Basophils # 0.1 10*3/uL (0.0-0.2); Basophils % 0.3 % (0.0-0.8); Hematocrit 19.5 VOL% (35.7-47.0); Hemoglobin 6.5 GM/DL (12.0-16.0); Immature Granulocytes Absolute 1.92 #; Lymphocytes # 1.2 10*3/uL (1.4-4.0); Lymphocytes % 5.1 % (21.3-54.2); Mean Corpuscular HGB Conc 33.3 GM/DL (32-36); Mean Corpuscular Volume 79.6 FL (87-102); Monocytes # 1.1 10*3/uL (0.11-0.8); Monocytes % 4.4 % (1.7-12.7); NRBC # 3.09 10*3/uL; Neutrophils % 82.2 % (38.7-73.9); Platelet Count 106 T/CUMM (130-400); Red Blood Count 2.45 MC/CUMM (3.8-5.5); Red Cell Distribution Width 19.3 % (9.3-17.3); White Blood Count 24.1 T/CUMM (4-12)
[2021-12-12 07:05] LABS: Calcium 9.6 MG/DL (8.5-10.1); Osmolality,Calculated 310.5 MOS/KG (273-304); Potassium 5.6 MMOL/L (3.5-5.1)
[2021-12-12 07:08] LABS: Band Neutrophils 5 % (0-10); Lymphocytes 3 % (20-55); Metamyelocytes 2 %; Myelocytes 1 %; Nucleated Red Blood Cells 23 /100 WBC (0-5); Total Cells Counted 100
[2021-12-12 07:09] LABS: Hypochromia 1+; Microcytosis 1+; Target Cells Few
[2021-12-12 07:10] LABS: Anisocytosis 1+; Polychromasia Slight
== END 2021-12-12 06:58 | disposition expired | DRG 207 ==
LOC: EDUNIT# → EDBD → N.ED 11:01 → SUATTDRO 13:48 → N.EDINP 13:48 → N.5E 15:36 → N.ICU 11-30 09:32
PROVIDERS: ADMIT Internal Medicine; ATTEND Family Medicine